=== PATIENT | male | born 1965 | race Caucasian/White ===

== ENCOUNTER → 2016-11-27 | Outpatient (CLI) | payer OTHER ==
[2016-11-27 14:52] LABS: CH 30.2; CHCM 35.6; HCT 48.1 % (39.0-53.0); HDW 2.68; HGB 16.2 gm/dL (13.0-17.5); MCH 28.6 pg (25.0-35.0); MCHC 33.6 g/dL (31.0-37.0); MCV 85.1 fL (80.0-100.0); RBC 5.65 m/uL (4.30-5.90); WBC 8.8 k/uL (3.8-10.6)
== END | disposition home or self-care (01) ==
LOC: LABPAT 14:25
PROVIDERS: ATTEND Anesthesiology
DX: Z01.810 Encounter for preprocedural cardiovascular examination (principal)
CPT/HCPCS: 85027

== ENCOUNTER 2016-12-04 08:26 | Day surgery (SDC) | payer BC, OTHER ==
[2016-11-26 13:59] VITALS: BMI 37.5
[~2016-12-04 08:26] MED LIST: DEXAMETHASONE SOD PHOSPHATE 10 MG/ML 1 ML VIAL IV ONE; HEPARIN SODIUM,PORCINE 5,000 UNIT/ML 1 ML VIAL SQ ONE; LACTATED RINGERS 1,000 ML IV SCH; ONDANSETRON 4 MG/2 ML VIAL IVP ONE; ceFAZolin 2 GM in SODIUM CHLORIDE 0.9% 100 ML IVPB ONE
[2016-12-04] MEDS ORDERED: LIDOCAINE 1% 20 ML VIAL (10MG/ML) FOR IV START INTRADERMA ONE (09:30)
[2016-12-04] MEDS ORDERED: MIDAZOLAM 2 MG/2 ML VIAL IV ONE (09:45)
--- NOTE | 2016-12-04 11:16 | P.GSHP ---
History of Present Illness H&P Date: 12/04/16 Chief Complaint: Incisional hernia This is a 51-year-old male has developed an incisional hernia related to his midline laparotomy. Patient presents today for laparoscopic robotic system repair. - Constitutional Constitutional: Reports as per HPI Past Medical History Past Medical History: Chest Pain / Angina, GERD/Reflux, Hypertension, Osteoarthritis (OA) Additional Past Medical History / Comment(s): NO CURRENT BP MEDS., BACK PAIN, HX OF KIDNEY STONES, HX OF CELLULITIS LEFT LEG X2., HERNIA. History of Any Multi-Drug Resistant Organisms: None Reported Past Surgical History: Hernia Repair Additional Past Surgical History / Comment(s): Lithotripsy Past Anesthesia/Blood Transfusion Reactions: No Reported Reaction Past Psychological History: No Psychological Hx Reported Smoking Status: Heavy tobacco smoker Past Alcohol Use History: None Reported Additional Past Alcohol Use History / Comment(s): SMOKES 1PPD. SMOKING FOR 40 YEARS. Past Drug Use History: None Reported Additional Drug Use History / Comment(s): . - Past Family History Mother Family Medical History: No Reported History Medications and Allergies Home Medications Medication Instructions Recorded Confirmed Type No Known Home Medications [No 03/28/14 12/04/16 History Known Home Medications] Allergies Allergy/AdvReac Type Severity Reaction Status Date / Time ranitidine HCl [From Zantac] Allergy Nausea & Verified 12/04/16 08:46 Vomiting Surgical - Exam Vital Signs Temp Pulse Resp BP Pulse Ox 97.8 F 89 16 198/121 97 12/04/16 09:39 12/04/16 09:39 12/04/16 09:39 12/04/16 09:39 12/04/16 09:39 - General well developed, no distress - Eyes PERRL - ENT normal pinna - Neck no masses - Respiratory normal expansion - Cardiovascular Rhythm: regular - Abdomen Abdomen: soft, non tender Hernia: incisional (Reducible incisional hernia) Assessment and Plan Plan: Reducible incisional hernia. We'll perform laparoscopic robotic-assisted repair.
[2016-12-04] MEDS ORDERED: fentaNYL (PF) 50 MCG/ML 2 ML AMP ONE (11:29)
[2016-12-04] MEDS ORDERED: SUCCINYLCHOLINE CHLORIDE 100 MG/5 ML SYR IV ONE (11:29)
[2016-12-04] MEDS ORDERED: GLYCOPYRROLATE 0.2 MG/ML 2 ML VIAL ONE (11:29)
[2016-12-04] MEDS ORDERED: LIDOCAINE 1% INJ 10MG/ML (20 ML MDV) ONE (11:29)
[2016-12-04] MEDS ORDERED: HYDROmorphone (PF) 1 MG/ML ONE (11:29)
[2016-12-04] MEDS ORDERED: PROPOFOL 10 MG/ML 20 ML VIAL IV ONE (11:29)
[2016-12-04] MEDS ORDERED: ROCURONIUM BROMIDE 10 MG/ML 10 ML VIAL IV ONE (11:29)
[2016-12-04] MEDS ORDERED: PHENYLEPHRINE-0.9% NACL SYG 1 MG/10 ML SYRINGE ONE (11:29)
[2016-12-04] MEDS ORDERED: ePHEDrine SULFATE/0.9% NACL/PF 50 MG/5 ML SYRINGE IV ONE (11:29)
[2016-12-04] MEDS ORDERED: NEOSTIGMINE 1 MG/ML 10 ML VIAL ONE (11:29)
[2016-12-04] MEDS ORDERED: LIDOCAINE 2%-EPI 1:100,000 20 ML VIAL SQ ONE (12:01)
[2016-12-04] MEDS ORDERED: BUPIVACAINE (PF) 0.25% 30 ML VIAL SQ ONE (12:01)
[2016-12-04] MEDS ORDERED: LACTATED RINGERS 1,000 ML IV ONE ×2 (12:22→15:13)
[2016-12-04 14:04] VITALS: TEMP 98.4
[2016-12-04] MEDS: HYDROmorphone 1 MG/ML 1 ML SYRINGE IVP PRN ×2 (14:20→14:34)
--- NOTE | 2016-12-04 14:29 | P.OP ---
Date of Procedure: 12/04/16 Preoperative Diagnosis: Incarcerated incisional hernia Postoperative Diagnosis: Incarcerated incisional hernia Procedure(s) Performed: Laparoscopic robotic-assisted repair of incarcerated incisional hernia Lysis of adhesions Implants: Anesthesia: APOLINAR Surgeon: Arthur Madrigal Estimated Blood Loss (ml): 5 Pathology: none sent Condition: stable Disposition: PACU Indications for Procedure: Operative Findings: Description of Procedure: The patient's placed on the operative table in the supine position. He received general anesthesia. His abdomen was prepped and draped usual sterile fashion. The skin incision sites were anesthetized with 1% local Xylocaine. Using a 5 mm optical trocar in the left upper quadrant repair. The peritoneal cavity is entered. After adequate insufflation the laparoscope was placed back into the peritoneal cavity. Next a 8 mm robotic trochars placed left lower quadrant and a 12 mm trochars placed in the left lateral position. The original 5 mm trocar was exchanged for an 8 mm robotic trocar. The patient was docked to the robot. There were extensive adhesions located along the hernia. Using traction and hook cautery the adhesions were lysed. There is no incision any bowel injury. At this point the fascial defect was closed with #1 strep fixed suture. After the fascia was repaired. The hernia was buttressed with the ventral light ST mesh. This was secured with 2 OV lock suture. The patient was then undocked from the robot. The needles were retrieved. The fascia of the 12 mm trocar site was closed with 0 Ethibond suture. Skin was closed with interrupted 3-0 Monocryl suture. Dermabond was applied. Patient was sent to recovery in stable condition.
[2016-12-04 14:35] VITALS: RESP 18
[2016-12-04] MEDS ORDERED: HYDROcodone/APAP 7.5-325MG 1 EACH TAB PO ONE (15:30)
[2016-12-04 16:43] VITALS: BP 146/91; PULSE 101
== END 2016-12-04 17:10 | disposition home or self-care (01) ==
LOC: OR 08:26
PROVIDERS: ATTEND Surgery
DX: K43.0 Incisional hernia with obstruction, without gangrene (principal); K21.9 Gastro-esophageal reflux disease without esophagitis; I10 Essential (primary) hypertension; F17.200 Nicotine dependence, unspecified, uncomplicated; K66.0 Peritoneal adhesions (postprocedural) (postinfection); Z88.8 Allergy status to other drugs, medicaments and biological substances
CPT/HCPCS: 93005; 86900; 86901; 86850; 49655; C1781; J2250; J1644; J1100; J2710; J0690; J2405; J2001; J3010; J1170; J2370; J0330; J2704

== ENCOUNTER → 2017-08-13 | Outpatient (CLI) | payer OTHER ==
[2017-08-13 11:33] LABS: Basophils # (A) 0.1 k/uL (0-0.2); Basophils % (A) 1 %; Eosinophils # (A) 0.1 k/uL (0-0.7); Eosinophils % (A) 1 %; HCT 49.1 % (39.0-53.0); HGB 16.3 gm/dL (13.0-17.5); Lymphocytes # (A) 2.3 k/uL (1.0-4.8); Lymphocytes % (A) 28 %; MCH 27.7 pg (25.0-35.0); MCHC 33.1 g/dL (31.0-37.0); MCV 83.7 fL (80.0-100.0); Monocytes # (A) 0.6 k/uL (0-1.0); Monocytes % (A) 7 %; Neutrophils # (A) 4.9 k/uL (1.3-7.7); Neutrophils % (A) 60 %; Platelet Count 303 k/uL (150-450); RBC 5.87 m/uL (4.30-5.90); RDW 13.4 % (11.5-15.5); WBC 8.1 k/uL (3.8-10.6)
== END ==
LOC: LABPAT 10:08
PROVIDERS: ATTEND Internal Medicine
DX: Z01.818 Encounter for other preprocedural examination (principal); D64.9 Anemia, unspecified; F17.200 Nicotine dependence, unspecified, uncomplicated; K43.0 Incisional hernia with obstruction, without gangrene; Z01.812 Encounter for preprocedural laboratory examination
CPT/HCPCS: 85025; 93005

== ENCOUNTER 2017-08-20 07:57 | Day surgery (SDC) | payer OTHER ==
[2017-08-19 08:41] VITALS: BMI 37.5
[~2017-08-20 07:57] MED LIST changes: +LIDOCAINE 1% 20 ML VIAL (10MG/ML) FOR IV START INTRADERMA PRN; +MORPHINE SULFATE 4 MG/ML SYRINGE IV PRN; -ONDANSETRON 4 MG/2 ML VIAL IVP ONE; +SCOPOLAMINE 1.5MG/72HR PATCH TRANSDERM ONE; -ceFAZolin 2 GM in SODIUM CHLORIDE 0.9% 100 ML IVPB ONE; +ceFAZolin IN SWFI 2 GM/20 ML SYRINGE IVP ONE
[2017-08-20] MEDS: ONDANSETRON 4 MG/2 ML VIAL IVP ONE ×2 (08:45→12:11)
[2017-08-20] MEDS ORDERED: LACTATED RINGERS 1,000 ML IV ONE ×2 (08:45→11:17)
[2017-08-20] MEDS ORDERED: MIDAZOLAM 2 MG/2 ML VIAL IV ONE (09:20)
--- NOTE | 2017-08-20 09:20 | P.GSHP ---
History of Present Illness H&P Date: 08/20/17 Chief Complaint: Incisional hernia This is a 52-year-old male who has complaints of abdominal wall mass. Patient seen Mari found have recurrent incisional hernia. Patient presents today for laparoscopic robotic assistance repair. Past Medical History Past Medical History: GERD/Reflux, Hypertension, Osteoarthritis (OA) Additional Past Medical History / Comment(s): BACK PAIN, HX OF KIDNEY STONES, HX OF CELLULITIS LEFT LEG X2., HERNIA. History of Any Multi-Drug Resistant Organisms: None Reported Past Surgical History: Hernia Repair Additional Past Surgical History / Comment(s): Lithotripsy, UMBILICAL HERNIA Past Anesthesia/Blood Transfusion Reactions: No Reported Reaction Smoking Status: Current every day smoker - Past Family History Mother Family Medical History: No Reported History Medications and Allergies Home Medications Medication Instructions Recorded Confirmed Type Lisinopril [Zestril] 20 mg PO DAILY 08/19/17 08/19/17 History Allergies Allergy/AdvReac Type Severity Reaction Status Date / Time ranitidine HCl [From Zantac] Allergy Nausea & Verified 08/19/17 08:16 Vomiting Surgical - Exam Vital Signs Temp Pulse Resp BP Pulse Ox 98.8 F 99 18 154/100 97 08/20/17 08:18 08/20/17 08:18 08/20/17 08:18 08/20/17 08:18 08/20/17 08:18 - General well developed, no distress - Eyes PERRL - ENT normal pinna - Neck no masses - Respiratory normal expansion - Cardiovascular Rhythm: regular - Abdomen Abdomen: soft, non tender Hernia: incisional (Upper midline incisional hernia located above the umbilicus) Assessment and Plan Assessment: Incisional hernia. We'll perform laparoscopic robotic system repair.
[2017-08-20] MEDS ORDERED: PROPOFOL 10 MG/ML 20 ML VIAL IV ONE (09:40)
[2017-08-20] MEDS ORDERED: ROPIVACAINE 5 MG/ML 30 ML VIAL ONE (09:40)
[2017-08-20] MEDS ORDERED: NEOSTIGMINE 1 MG/ML 10 ML VIAL ONE (09:40)
[2017-08-20] MEDS ORDERED: PHENYLEPHRINE-0.9% NACL SYG 1 MG/10 ML SYRINGE ONE (09:40)
[2017-08-20] MEDS ORDERED: fentaNYL (PF) 50 MCG/ML 2 ML AMP ONE (09:40)
[2017-08-20] MEDS ORDERED: SUCCINYLCHOLINE CHLORIDE 100 MG/5 ML SYR IV ONE (09:40)
[2017-08-20] MEDS ORDERED: ROCURONIUM BROMIDE 10 MG/ML 10 ML VIAL IV ONE (09:40)
[2017-08-20] MEDS ORDERED: GLYCOPYRROLATE 0.2 MG/ML 2 ML VIAL ONE (09:40)
[2017-08-20] MEDS ORDERED: BUPIVACAINE (PF) 0.5% 30 ML VIAL SQ ONE (10:09)
[2017-08-20 11:51] VITALS: TEMP 97.9
[2017-08-20] MEDS ORDERED: HYDROmorphone 1 MG/ML 1 ML SYRINGE IVP ONE ×2 (12:07)
[2017-08-20] MEDS ORDERED: diphenhydrAMINE 50 MG/ML 1 ML VIAL IVP ONE (12:08)
[2017-08-20] MEDS ORDERED: KETOROLAC 30 MG/ML 1 ML VIAL IVP ONE (12:11)
[2017-08-20] MEDS ORDERED: HYDROmorphone 0.5 MG/0.5 ML SYRINGE IVP ONE (12:20)
[2017-08-20] MEDS: MEPERIDINE 50 MG/ML SYRINGE IVP ONE ×2 (12:37→12:43)
[2017-08-20] MEDS ORDERED: HYDROcodone/APAP 7.5-325MG 1 EACH TAB PO ONE ×2 (13:00→14:05)
[2017-08-20 14:44] VITALS: BP 138/94; PULSE 103; RESP 20
--- NOTE | 2017-08-20 16:12 | P.OP ---
Date of Procedure: 08/20/17 Preoperative Diagnosis: Recurrent incisional hernia incarcerated Postoperative Diagnosis: Incarcerated recurrent incisional hernia Adhesions Procedure(s) Performed: Laparoscopic lysis of adhesions Laparoscopic robotic-assisted repair of recurrent incarcerated incisional hernia Anesthesia: APOLINAR Surgeon: Arthur Madrigal Estimated Blood Loss (ml): 5 Pathology: none sent Condition: stable Disposition: PACU Description of Procedure: The patient was placed on the operating table in the supine position. He received general anesthesia. His abdomen was prepped and draped usual fashion. Using a 5 mm optical trocar under direct visualization the peritoneal cavity was entered in the left upper quadrant. The abdomen was then insufflated. The laparoscope was placed back into the perineal cavity. Next a 8 mm robotic trocar was placed in the left lower quadrant and a 12 mm robotic trocar was placed in the left lateral position. The original 5 mm trocar was exchanged for a 8 mm robotic trocar. The patient's placed in the left side up position. And the patient was docked to the robot. The incisional hernia was visualized. There was incarcerated small bowel within the hernia. There is also extensive adhesions. Using Metzenbaum scissors and hook cautery the adhesions were lysed and the small bowel was reduced from the incisional hernia. Using hook cautery the peritoneum over the incisional hernia was excised. The fascial opening was repaired using 0V LOC suture. Next a piece of 11 cm round ventral light ST mesh was placed into the. Cavity and secured with 2 OV lock suture. The patient was undocked the robot. The needles were retrieved. The fascia of the 12 mm trocar site was closed with 0 Ethibond suture. Skin was closed interrupted 3-0 Monocryl suture. Dermabond dressings was applied. Patient tolerated procedure well and was sent to recovery room stable condition.
--- NOTE | 2017-08-21 17:58 | P.ONQ ---
Anesthesiology Proc Note - PNB - Peripheral Nerve Block Performed Bilateral Rectus Abdominis Single Time Out Performed: Yes Procedure Start Time: :16 Procedure Stop Time: : Indication: Acute Post-Operative Pain, Requested by physician Sedation Type: Sedate with meaningful contact maintained Preparation: Sterile Dressing Needle Size: 100mm (4") Needle Gauge: 21 Technique: Ultrasound Injectate: 0.5% Ropivacaine (see comment for volume) (ropi .5% 15cc each side) Blood Aspirated: No Pain Paresthesia on Injection Noted: No Resistance on Injection: Normal Events: Uneventful and Well Tolerated
== END 2017-08-20 15:03 | disposition home or self-care (01) ==
LOC: OR 07:57
PROVIDERS: ATTEND Surgery
DX: K43.0 Incisional hernia with obstruction, without gangrene (principal); K21.9 Gastro-esophageal reflux disease without esophagitis; I10 Essential (primary) hypertension; K66.0 Peritoneal adhesions (postprocedural) (postinfection); M19.90 Unspecified osteoarthritis, unspecified site; Z87.442 Personal history of urinary calculi; F17.200 Nicotine dependence, unspecified, uncomplicated; Z88.8 Allergy status to other drugs, medicaments and biological substances; Z79.899 Other long term (current) drug therapy
CPT/HCPCS: 86900; 86901; 86850; 49657; 64488; C1781; J2250; J1200; J1644; J1100; J2710; J2175; J2405; J3010; J1885; J1170 ×2; J2795; J2370; J0330; J2704; J0690

== ENCOUNTER → 2018-02-06 | Outpatient (CLI) | payer OTHER ==
--- NOTE | 2018-02-06 12:25 | CT ---
EXAMINATION TYPE: CT abdomen pelvis w con DATE OF EXAM: 02/06/2018 COMPARISON: None HISTORY: Generalized abdominal pain. CT DLP: 1911 mGycm Automated exposure control for dose reduction was used. CONTRAST: CT scan of the abdomen pelvis is performed with IV Contrast, patient injected with 100 mL of Isovue M 300. FINDINGS- LUNG BASES- No significant abnormality is appreciated. LIVER/GB-multiple gallstones are seen. Subcentimeter hypodensity in the left lobe of the liver on flavio ge 19 is too small to characterize. PANCREAS- No gross abnormality is seen. SPLEEN- No gross abnormality is seen. ADRENALS- No gross abnormality is seen. KIDNEYS/BLADDER- no hydronephrosis nephrolithiasis. Subcentimeter hypodensity in the lower pole the r ight kidney too small to characterize. BOWEL-bowel gas pattern nonspecific. Diverticulosis of the colon noted. Appendix normal. LYMPH NODES- No greater than 1cm abdominal or pelvic lymph nodes areappreciated. OSSEOUS STRUCTURES-multilevel severe degenerative disc disease with hypertrophic change. Arthropathy of the hips correlate for femoral acetabular impingement. Hypertrophic changes involving vertebral co lumn suggest Canal stenosis foraminal encroachment multiple levels. OTHER- bladder wall is thickened although the bladder is decompressed but should be correlated clini fabricio. Nonspecific attenuation within the anterior dominant wall near the umbilicus may be related to previous scar or soft tissue edema. Prostate is mildly enlarged with calcifications. Tiny anterior a bdominal wall hernia on image 36 containing peritoneal fat. IMPRESSION- 1. No cholelithiasis. 2. Hypodensities within the liver and right kidney too small to characterize but likely related to cy sts 3. Bladder is decompressed but has a thickened wall which may be secondary to decompression. Correlat e clinically for cystitis.
== END ==
LOC: RADCTMAIN 10:24
PROVIDERS: ATTEND Internal Medicine
DX: K76.89 Other specified diseases of liver (principal)
CPT/HCPCS: 74177; Q9967

== ENCOUNTER → 2018-04-22 | Outpatient (CLI) | payer OTHER ==
--- NOTE | 2018-04-22 15:02 | CT ---
EXAMINATION TYPE: CT soft tissue neck wo con, High resolution CT chest DATE OF EXAM: 04/22/2018 COMPARISON: None HISTORY: 52-year-old male Shortness of breath, neck mass TECHNIQUE: Contiguous axial scanning of the soft tissues of the neck followed by high resolution CT o f the chest without IV contrast. Coronal and sagittal reconstructions performed. For the chest, imagi ng performed in both supine and prone position with 1 mm slice thickness and [address] DLP: 781 (accession [id number]), 213 (accession [id number]) mGycm Automated exposure control for dose reduction was used. FINDINGS: NECK: Leftward nasal septal deviation. Visualized maxillary sinuses and mastoid air cells appear clear. Lack of IV contrast limits assessment of the mucosal space. For this limitation, the nasopharynx appears grossly clear. There is nonspecific soft tissue density effacing the right vallecular space, suspected lingual tonsillar hypertrophy that can be correlated w ith direct visualization, refer to axial images 27 through 29. Nonspecific calcification near the reg ion of the left palatine tonsils suggestive of a tonsillolith measuring 4 mm. On the sagittal series, the epiglottis and prevertebral soft tissues appear normal. The glottic and subglottic structures as well as the tracheal column and visualized upper lungs show no personality by noncontrast CT. There is aneurysm of the ascending aorta 4.2 cm. Noncontrast appearance of the thyroid, submandibular, and parotid glands show no gross abnormal mobil ity. Scattered nonenlarged lymph nodes on both sides of the neck measuring up to 7 mm. No cervical lymphad enopathy identified. No suspicious neck mass is identified. HRCT CHEST: Heart normal size without pericardial effusion. Some scattered mild coronary vessel calcifications ar e present. Redemonstrated aneurysm of the ascending aorta at 4.2 cm. Aneurysm extends into the proximal arch. Bu lla and configuration to the aortic arch. No evident thoracic lymphadenopathy by HRCT technique. Mild diffuse bronchial wall thickening is noted. Some emphysematous change in the apices. Some mild g roundglass in the lower lungs is noted to follow a dependent distribution when comparing between supi ne and prone images compatible with atelectasis. HRCT technique limited for assessment of small pulmonary nodules No consolidation or pleural effusion. No thickening of the bronchovascular bundles, honeycombing, centrilobular nodules, tree-in-bud opacit ies. Visualized upper abdomen shows no gross abnormality. Bones: No osseous destructive process. IMPRESSION: NECK: 1. LIMITED ASSESSMENT OF THE SUBMUCOSAL SPACE DUE TO LACK OF IV CONTRAST. 2. SOME SOFT TISSUE NODULARITY EFFACING THE RIGHT VALLECULAR SPACE, SUSPECTED LINGUAL TONSIL HYPERTRO PHY. CORRELATE WITH DIRECT VISUALIZATION. 3. APPARENT 4 MM LEFT-SIDED TONSILLOLITH. 4. NO CERVICAL LYMPHADENOPATHY OR SUSPICIOUS NECK MASS IS IDENTIFIED. IF PERSISTENT CLINICAL CONCERN, THE EXAM CAN BE REVIEWED WITH DIRECTED ATTENTION. HRCT CHEST: 1. MILD EMPHYSEMATOUS CHANGE AT THE APICES. 2. BRONCHIAL WALL THICKENING SUGGESTS BRONCHITIS OR ASTHMA. 3. ASCENDING AORTIC ANEURYSM AT 4.2 CM. APPROPRIATE FOLLOW-UP RECOMMENDED 4. NO SPECIFIC HRCT FINDINGS OF PULMONARY FIBROSIS OR INTERSTITIAL PNEUMONITIS.
== END | disposition home or self-care (01) ==
LOC: RADCTMAIN 13:17
PROVIDERS: ATTEND Internal Medicine
DX: J43.9 Emphysema, unspecified (principal); J35.1 Hypertrophy of tonsils; J35.8 Other chronic diseases of tonsils and adenoids; I71.2 Thoracic aortic aneurysm, without rupture; M79.89 Other specified soft tissue disorders
CPT/HCPCS: 70490; 71250

== ENCOUNTER → 2018-05-28 | Outpatient (CLI) | payer OTHER ==
--- NOTE | 2018-05-28 17:17 | CT ---
EXAMINATION TYPE: CT abdomen pelvis wo con DATE OF EXAM: 05/28/2018 COMPARISON: Prior CT 02/06/2018 HISTORY: Abdominal hernia CT DLP: 1141 mGycm Automated exposure control for dose reduction was used. TECHNIQUE: Helical acquisition of images from the lung bases through the pelvis. FINDINGS: Small anterior abdominal wall hernia present in the midline contains fat in the subxiphoid location approximately 10 cm from the xiphoid. More inferiorly there is a small anterior abdominal wa ll hernia present with suggestion of bowel loop as well as some postsurgical changes at this level. N o evident bowel obstruction. LUNG BASES: No significant abnormality is appreciated. AORTA: No significant abnormality is appreciataed. LIVER/GB: There are gallstones present. Liver shows no mass. PANCREAS: No significant abnormality is seen. SPLEEN: No significant abnormality is seen. ADRENALS: No significant abnormality is seen. KIDNEYS: No significant abnormality is seen. REPRODUCTIVE ORGANS: Prostate is enlarged and there are associated calcifications. URINARY BLADDER: Urinary bladder shows wall thickening possibly due to chronic outlet obstruction. BOWEL: Colonic wall thickening seen, difficult to exclude mucosal lesion. The appendix is normal. FREE AIR: No Free Air is visible. ASCITES: None visible. PELVIC ADENOPATHY: None visualized. RETROPERITONEAL ADENOPATHY: No Retroperitoneal Adenopathy visible. OSSEOUS STRUCTURES: Degenerative disc disease noted the lower lumbar spine, there is a spinal curvat ure. IMPRESSION: ANTERIOR ABDOMINAL WALL HERNIAS WITH POSTOP CHANGES, BOWEL IS HERNIATED THROUGH THE ANTERIOR ABDOMINA L WALL HERNIA IN THE SUPRAUMBILICAL LOCATION, NO EVIDENT OBSTRUCTION. NONCONTRAST EXAM, CHOLELITHIASI S AND ADDITIONAL FINDINGS ABOVE.
== END | disposition home or self-care (01) ==
LOC: RADCTMAIN 14:30
PROVIDERS: ATTEND Internal Medicine
DX: K46.9 Unspecified abdominal hernia without obstruction or gangrene (principal); K80.20 Calculus of gallbladder without cholecystitis without obstruction; N32.89 Other specified disorders of bladder; N40.0 Benign prostatic hyperplasia without lower urinary tract symptoms; Z88.8 Allergy status to other drugs, medicaments and biological substances; Z88.5 Allergy status to narcotic agent
CPT/HCPCS: 74176

== ENCOUNTER → 2018-06-02 | Outpatient (CLI) | payer OTHER ==
[2018-06-02 16:55] LABS: Basophils # (A) 0.1 k/uL (0-0.2); Basophils % (A) 1 %; Eosinophils # (A) 0.1 k/uL (0-0.7); Eosinophils % (A) 2 %; HCT 44.1 % (39.0-53.0); HGB 14.8 gm/dL (13.0-17.5); Lymphocytes # (A) 2.4 k/uL (1.0-4.8); Lymphocytes % (A) 30 %; MCH 28.6 pg (25.0-35.0); MCHC 33.7 g/dL (31.0-37.0); MCV 84.9 fL (80.0-100.0); Mean Platelet Volume 6.8; Monocytes # (A) 0.5 k/uL (0-1.0); Monocytes % (A) 7 %; Neutrophils # (A) 4.6 k/uL (1.3-7.7); Neutrophils % (A) 58 %; Platelet Count 314 k/uL (150-450); RBC 5.19 m/uL (4.30-5.90); RDW 13.5 % (11.5-15.5); WBC 7.9 k/uL (3.8-10.6)
== END | disposition home or self-care (01) ==
LOC: LABPAT 16:02
PROVIDERS: ATTEND Surgery
DX: Z01.812 Encounter for preprocedural laboratory examination (principal); K43.0 Incisional hernia with obstruction, without gangrene
CPT/HCPCS: 36415; 85025

== ENCOUNTER 2018-06-08 07:29 | Observation (INO) | payer OTHER ==
[~2018-06-08 07:29] MED LIST changes: -DEXAMETHASONE SOD PHOSPHATE 10 MG/ML 1 ML VIAL IV ONE; -LACTATED RINGERS 1,000 ML IV SCH; -MORPHINE SULFATE 4 MG/ML SYRINGE IV PRN; +ONDANSETRON 4 MG/2 ML VIAL IVP ONE; -SCOPOLAMINE 1.5MG/72HR PATCH TRANSDERM ONE; +ceFAZolin 3 GM in SODIUM CHLORIDE 0.9% 100 ML IVPB ONE; -ceFAZolin IN SWFI 2 GM/20 ML SYRINGE IVP ONE
[2018-06-08] MEDS ORDERED: DEXAMETHASONE SOD PHOS (MDV) 100 MG/10 ML VIAL IV ONE (08:03)
[2018-06-08] MEDS: fentaNYL (PF) 50 MCG/ML 2 ML AMP IV PRN ×5 (08:05→11:05)
[2018-06-08] MEDS ORDERED: MIDAZOLAM 2 MG/2 ML VIAL IV ONE (08:05)
[2018-06-08] MEDS: LACTATED RINGERS 1,000 ML IV SCH (08:07)
--- NOTE | 2018-06-08 08:16 | P.GSHP ---
History of Present Illness H&P Date: 06/08/18 Chief Complaint: Recurrent incisional hernia This a 53-year-old male who has developed a recurrent incisional hernia. Patient presents today for open repair. He has developed a tender mass just above his umbilicus Past Medical History Past Medical History: Chest Pain / Angina, COPD, CVA/TIA, GERD/Reflux, Hyperlipidemia, Hypertension, Osteoarthritis (OA) Additional Past Medical History / Comment(s): HX OF KIDNEY STONES, TIA,. STATES HE HAS AN ANEURYSM ON THE HEART AND IT IS BEING MONITORED BY A SUPPORT CLERK. History of Any Multi-Drug Resistant Organisms: None Reported Past Surgical History: Hernia Repair Additional Past Surgical History / Comment(s): Lithotripsy, HERNIA SURGERY X3 Past Anesthesia/Blood Transfusion Reactions: No Reported Reaction Past Psychological History: No Psychological Hx Reported Smoking Status: Former smoker Past Alcohol Use History: None Reported Additional Past Alcohol Use History / Comment(s): STARTED SMOKING SMOKING AT AGE 12 QUIT AT JAN 2018 SMOKED 1PPD. Past Drug Use History: None Reported Additional Drug Use History / Comment(s): . - Past Family History Mother Family Medical History: Coronary Artery Disease (CAD), Diabetes Mellitus Father Family Medical History: CVA/TIA, Hypertension Medications and Allergies Home Medications Medication Instructions Recorded Confirmed Type Lisinopril [Zestril] 40 mg PO DAILY 08/19/17 06/04/18 History Atorvastatin [Lipitor] 10 mg PO DAILY 04/15/18 06/04/18 History Butalbital/Acetaminophen 1 cap PO DAILY PRN 04/15/18 06/04/18 History [Butalbital/Acetaminophen 50-300mg] Dicyclomine [Bentyl] 20 mg PO TID 04/15/18 06/04/18 History Metoprolol Succinate (ER) [Toprol 50 mg PO DAILY 04/15/18 06/04/18 History Xl] Pantoprazole [Protonix] 40 mg PO TID BETWEEN MEALS 04/15/18 06/04/18 History amLODIPine [Norvasc] 10 mg PO DAILY 04/15/18 06/04/18 History Albuterol Inhaler [Ventolin Hfa 1 - 2 puff INHALATION RT-Q6H PRN 06/04/18 06/04/18 History Inhaler] Allergies Allergy/AdvReac Type Severity Reaction Status Date / Time ranitidine HCl [From Zantac] Allergy Nausea & Verified 06/04/18 12:41 Vomiting acetaminophen [From Krum] AdvReac Nausea, Verified 06/04/18 12:41 light headed hydrocodone [From Krum] AdvReac Nausea, Verified 06/04/18 12:41 light headed Surgical - Exam Vital Signs Temp Pulse Resp BP Pulse Ox 99.8 F H 85 16 152/85 95 06/08/18 07:51 06/08/18 07:51 06/08/18 07:51 06/08/18 07:51 06/08/18 07:51 - General well developed, well nourished, no distress - Eyes PERRL - ENT normal pinna - Neck no masses - Respiratory normal expansion - Cardiovascular Rhythm: regular - Abdomen Abdomen: soft Hernia: incisional (Recurrent incisional hernia measuring approximately 4 cm in diameter) Assessment and Plan Assessment: Recurrent incisional hernia. We'll perform open repair.
[2018-06-08] MEDS ORDERED: ePHEDrine SULFATE/0.9% NACL/PF 50 MG/5 ML SYRINGE IV ONE (08:34)
[2018-06-08] MEDS ORDERED: PROPOFOL 10 MG/ML 20 ML VIAL IV ONE (08:34)
[2018-06-08] MEDS ORDERED: fentaNYL (PF) 50 MCG/ML 2 ML AMP ONE (08:34)
[2018-06-08] MEDS ORDERED: ROCURONIUM BROMIDE 10 MG/ML 10 ML VIAL IV ONE (08:34)
[2018-06-08] MEDS ORDERED: NEOSTIGMINE 1 MG/ML 10 ML VIAL ONE (08:34)
[2018-06-08] MEDS ORDERED: ROPIVACAINE 5 MG/ML 30 ML VIAL ONE (08:34)
[2018-06-08] MEDS ORDERED: KETOROLAC 30 MG/ML 1 ML VIAL ONE (08:34)
[2018-06-08] MEDS ORDERED: MIDAZOLAM 2 MG/2 ML VIAL ONE (08:34)
[2018-06-08] MEDS ORDERED: SUCCINYLCHOLINE CHLORIDE 100 MG/5 ML SYR IV ONE (08:34)
[2018-06-08] MEDS ORDERED: GLYCOPYRROLATE 0.2 MG/ML 2 ML VIAL ONE (08:34)
[2018-06-08] MEDS ORDERED: LIDOCAINE 1% INJ 10MG/ML (20 ML MDV) ONE (08:34)
[2018-06-08] MEDS ORDERED: PHENYLEPHRINE-0.9% NACL SYG 1 MG/10 ML SYRINGE ONE (08:34)
--- NOTE | 2018-06-08 09:06 | P.ONQ ---
Anesthesiology Proc Note - PNB - Peripheral Nerve Block Performed Bilateral Rectus Abdominis Single Time Out Performed: Yes (802) Procedure Start Time: 08:04 Procedure Stop Time: 08:10 Indication: Acute Post-Operative Pain, Analgesia, Requested by physician Sedation Type: Sedate with meaningful contact maintained Preparation: Sterile Prep Position: Supine Catheter: None Needle Types: On-Q Needle Size: 100mm (4") Needle Gauge: 20 Technique: Ultrasound Injectate: 0.5% Ropivacaine (see comment for volume) Blood Aspirated: No Pain Paresthesia on Injection Noted: No Resistance on Injection: Normal Events: Uneventful and Well Tolerated (15 ml solution injected on each side)
[2018-06-08] MEDS ORDERED: BUPIVACAINE-EPI 0.5%-1:200,000 10 ML VIAL SQ ONE ×2 (09:16→09:57)
[2018-06-08] MEDS ORDERED: LACTATED RINGERS 1,000 ML IV ONE ×3 (09:27→10:16)
--- NOTE | 2018-06-08 10:15 | P.OP ---
Date of Procedure: 06/08/18 Preoperative Diagnosis: Recurrent incisional hernia Postoperative Diagnosis: Recurrent incarcerated incisional hernia Procedure(s) Performed: (Recurrent incarcerated incisional hernia Anesthesia: APOLINAR Surgeon: Arthur Madrigal Estimated Blood Loss (ml): 50 Pathology: none sent Condition: stable Disposition: PACU Description of Procedure: The patient's placed on the operative table in the supine position. He received general anesthesia. His abdomen was prepped and draped in the usual sterile fashion. Patient had a incisional hernia located above the umbilicus from his midline scar. Using a 15 blade the skin was incised and using left cautery the subcutaneous tissue divided. The hernia sac was then encountered. The incision was lengthened cephalad and then the fascia external oblique was exposed. The hernia appeared to contain incarcerated omentum. The hernia sac was opened and the omentum was placed back the pleural cavity. X fascia was closed with 0 Ethibond pop-off sutures. These replaced with [id number] fashion. Once the fascia was closed the hernia was buttressed with a piece of Prolene mesh which was secured with a secure strap stapler. A JUAN FRANCISCO drains placed over top the repair and brought out through separate stab incision and secured with 2-0 nylon. Peter's fascia is closed with 0 Vicryl. Skin was closed alee. Patient top she will was sent to recovery in stable condition.
[2018-06-08] MEDS ORDERED: NALOXONE 0.4 MG/ML 1 ML VIAL IV PRN (10:16)
[2018-06-08] MEDS ORDERED: METOCLOPRAMIDE 5 MG/ML 2 ML VIAL IVP PRN (10:16)
[2018-06-08] MEDS ORDERED: HYDROcodone/APAP 5-325MG 1 EACH TAB PO PRN (10:16)
[2018-06-08] MEDS ORDERED: ONDANSETRON 4 MG/2 ML VIAL IVP PRN (10:16)
[2018-06-08] MEDS: KETOROLAC 30 MG/ML 1 ML VIAL IVP SCH ×2 (11:54→17:53)
[2018-06-08 12:08] VITALS: BMI 41.4
[2018-06-08] MEDS: HYDROmorphone 0.5 MG/0.5 ML SYRINGE IVP PRN ×2 (13:01→21:03)
[2018-06-08] MEDS ORDERED: BUTALB/APAP/CAFF 50-325-40MG TAB PO PRN (15:00)
--- NOTE | 2018-06-08 15:14 | P.CONS ---
History of Present Illness - Reason for Consult Consult date: 06/08/18 Medical management of hypertension and other medical problems - Chief Complaint Incisional hernia repair - History of Present Illness Je crystal is a 52-year-old male with a known history of hypertension, hyperlipidemia, history of CVA/TIA, COPD quit smoking 6 months ago, history of renal stones status post lithotripsy and prior history of incisional hernia repair was admitted to the hospital for elective incisional hernia repair. Patient also morbid obesity BMI 42.0. Patient tolerated the procedure very well. Currently denied any complaints of abdominal pain. No complaints of chest pain or shortness of breath. No nausea vomiting or abdominal pain. No headache or dizziness or lightheadedness. No fever no chills. Blood pressure is on the lower side of his surgery. Pain is really controlled. Review of Systems Constitutional: Patient denies any fever or chills . No generalized weakness or weight loss. Abdomen: Patient denied nausea vomiting and diarrhea and abdominal pain. Cardiovascular: Patient denies any chest pain or short of breath no palpitations. Respiratory: patient denied any cough is from production. No shortness of breath Neurologic: Patient denied any numbness or tingling headache. Musculoskeletal: Patient denies any complaints of joint swelling or deformity. Skin: Negative Psychiatric: Negative Endocrine: No heat or cold intolerance. No recent weight gain. Genitourinary: No dysuria or hematuria. All other 14 point ROS negative except the above Past Medical History Past Medical History: Chest Pain / Angina, COPD, CVA/TIA, GERD/Reflux, Hyperlipidemia, Hypertension, Osteoarthritis (OA) Additional Past Medical History / Comment(s): HX OF KIDNEY STONES, TIA,. STATES HE HAS AN ANEURYSM ON THE HEART AND IT IS BEING MONITORED BY A DIRECTIONAL DRILLER. History of Any Multi-Drug Resistant Organisms: None Reported Past Surgical History: Hernia Repair Additional Past Surgical History / Comment(s): Lithotripsy, HERNIA SURGERY X3 Past Anesthesia/Blood Transfusion Reactions: No Reported Reaction Past Psychological History: No Psychological Hx Reported Smoking Status: Former smoker Past Alcohol Use History: None Reported Additional Past Alcohol Use History / Comment(s): STARTED SMOKING SMOKING AT AGE 12 QUIT AT JAN 2018 SMOKED 1PPD. Past Drug Use History: None Reported Additional Drug Use History / Comment(s): . - Past Family History Mother Family Medical History: Coronary Artery Disease (CAD), Diabetes Mellitus Father Family Medical History: CVA/TIA, Hypertension Medications and Allergies Home Medications Medication Instructions Recorded Confirmed Type Lisinopril [Zestril] 40 mg PO DAILY 08/19/17 06/08/18 History Atorvastatin [Lipitor] 10 mg PO DAILY 04/15/18 06/04/18 History Butalbital/Acetaminophen 1 cap PO DAILY PRN 04/15/18 06/04/18 History [Butalbital/Acetaminophen 50-300mg] Dicyclomine [Bentyl] 20 mg PO TID 04/15/18 06/04/18 History Metoprolol Succinate (ER) [Toprol 50 mg PO DAILY 04/15/18 06/08/18 History Xl] Pantoprazole [Protonix] 40 mg PO BID 04/15/18 06/08/18 History amLODIPine [Norvasc] 10 mg PO DAILY 04/15/18 06/08/18 History Albuterol Inhaler [Ventolin Hfa 1 - 2 puff INHALATION RT-Q6H PRN 06/04/18 06/04/18 History Inhaler] Hydrochlorothiazide [Hydrodiuril] 25 mg PO DAILY 06/08/18 06/08/18 History Metoprolol Succinate (ER) [Toprol 25 mg PO HS 06/08/18 06/08/18 History Xl] Allergies Allergy/AdvReac Type Severity Reaction Status Date / Time ranitidine HCl [From Zantac] Allergy Nausea & Verified 06/04/18 12:41 Vomiting acetaminophen [From [place]] AdvReac Nausea, Verified 06/04/18 12:41 light headed hydrocodone [From [place]] AdvReac Nausea, Verified 06/04/18 12:41 light headed Physical Exam Vitals: Vital Signs Temp Pulse Pulse Resp BP BP Pulse Ox 06/08/18 10:55 80 16 112/69 93 L 06/08/18 10:40 75 16 105/69 91 L 06/08/18 10:25 74 16 107/51 93 L 06/08/18 10:11 97.5 F L 85 16 95/62 06/08/18 08:27 83 18 150/80 98 06/08/18 07:51 99.8 F H 85 16 152/85 95 Intake and Output 06/07/18 06/08/18 06/08/18 22:59 06:59 14:59 Intake Total 1500 Output Total 50 Balance 1450 Intake: IV 1500 Output: Estimated Blood Loss 50 PHYSICAL EXAMINATION: Patient is lying in the bed comfortably, no acute distress, awake alert and oriented.. HEENT: Normocephalic. Neck is supple. Pupils reactive. Nostrils clear. Oral cavity is moist. Ears reveal no drainage. Neck reveals no JVD, carotid bruits, or thyromegaly. CHEST EXAMINATION: Trachea is central. Symmetrical expansion. Lung kearney clear to auscultation and percussion. CARDIAC: Normal S1, S2 with no gallops. No murmurs ABDOMEN: Soft. Obese, abdominal surgical site intact and bandaged. Bowel sounds normal. No organomegaly. No abdominal bruits. Extremities: 1+edema. No clubbing or cyanosis Neurologically awake, alert, oriented x3 with well-coordinated movements. No focal deficits noted Skin: No rash or skin lesions. Psychiatric: Coperative. Nonsuicidal Musculoskeletal: No joint swelling or deformity. Normal range of motion. Assessment and Plan Assessment: Status post incisional hernia repair. Postoperative day 0 Hypertension. Currently patient is hypotensive. Hyperlipidemia Morbid obesity BMI 42.0 COPD not in exacerbation Previous history of smoking about quit smoking 6 months back History of aneurysm on follow-up with cardiology History of renal stones status post lithotripsy GERD History of CVA/TIA without residual weakness DVT prophylaxis with heparin subcu Plan: Patient will be continued on pain medications and bowel regimen. Continue with DVT prophylaxis. Encourage incentive spirometry. Hold home blood pressure medications due to hypotension. Currently restarted once blood pressure improves.. Patient is on Norvasc, hydrochlorothiazide and lisinopril at home. Breathing treatments as needed. We will follow up closely with you. Further recommendations based on the clinical course. Time with Patient: Greater than 30
[2018-06-08] MEDS: PANTOPRAZOLE 40 MG TABLET PO SCH (17:54)
[2018-06-09] MEDS: KETOROLAC 30 MG/ML 1 ML VIAL IVP SCH ×4 (01:13→16:21)
[2018-06-09] MEDS: HYDROmorphone 0.5 MG/0.5 ML SYRINGE IVP PRN (03:41)
[2018-06-09] MEDS: LACTATED RINGERS 1,000 ML IV SCH (06:11)
[2018-06-09 08:03] VITALS: RESP 16
[2018-06-09 08:17] LABS: Basophils % (A) 0 %; Eosinophils % (A) 0 %; HCT 38.8 % (39.0-53.0); HGB 12.7 gm/dL (13.0-17.5); Lymphocytes # (A) 1.6 k/uL (1.0-4.8); Lymphocytes % (A) 12 %; MCH 28.1 pg (25.0-35.0); MCHC 32.8 g/dL (31.0-37.0); MCV 85.8 fL (80.0-100.0); Mean Platelet Volume 8.1; Monocytes # (A) 0.8 k/uL (0-1.0); Monocytes % (A) 6 %; Neutrophils # (A) 10.3 k/uL (1.3-7.7); Neutrophils % (A) 80 %; Platelet Count 271 k/uL (150-450); RBC 4.52 m/uL (4.30-5.90); RDW 13.8 % (11.5-15.5)
[2018-06-09 08:32] LABS: Anion Gap 10 mmol/L; Blood Urea Nitrogen 18 mg/dL (9-20); Calcium 9.4 mg/dL (8.4-10.2); Carbon Dioxide 27 mmol/L (22-30); Chloride 99 mmol/L (98-107); Glucose 107 mg/dL (74-99); Potassium 4.3 mmol/L (3.5-5.1); Sodium 136 mmol/L (137-145)
[2018-06-09] MEDS: PANTOPRAZOLE 40 MG TABLET PO SCH (09:00)
[2018-06-09] MEDS ORDERED: ENOXAPARIN 40 MG/0.4 ML SYRINGE SQ SCH (09:00)
[2018-06-09] MEDS ORDERED: METOPROLOL SUCCINATE (ER) 50 MG TAB.ER.24H PO SCH (09:00)
[2018-06-09] MEDS ORDERED: ATORVASTATIN 10 MG TAB PO SCH (09:00)
[2018-06-09] MEDS ORDERED: traMADol 50 MG TAB PO PRN (09:00)
[2018-06-09] MEDS: PIPERACILLIN-TAZOBACTAM 3.375 GM in SODIUM CHLORIDE 0.9% 100 ML IVPB SCH ×2 (10:41→16:22)
--- NOTE | 2018-06-09 10:43 | P.PN ---
Subjective Progress Note Date: 06/09/18 CHIEF COMPLAINT: recurrent incisional hernia HISTORY OF PRESENT ILLNESS: Patient is status post repair of recurrent incarcerated incisional hernia. POD #1. Patient was examined this morning at the bedside. He states his pain is tolerable at this time. He denies nausea. He is tolerating clear liquid diet. WBC 13.0. He is afebrile. PHYSICAL EXAM: VITAL SIGNS: Currently stable. GENERAL: Well-developed in no acute distress. HEENT: No sclera icterus. Extraocular movements grossly intact. Moist buccal mucosa. Head is atraumatic, normocephalic. Hears conversational speech. No nasal drainage. NECK: Supple without lymphadenopathy. CHEST: Non-labored respirations and equal bilateral excursions. CARDIOVASCULAR: Tachycardic. Regular rate with regular rhythm. Palpable 2+ radial pulses. ABDOMEN: Soft. Nondistended. PREVENA in place. Left sided JUAN FRANCISCO with small amount of sanguinous drainage. MUSCULOSKELETAL: No clubbing, cyanosis or edema. NEUROLOGIC: No focal or lateralizing signs. Cranial nerves II through XII grossly intact. PSYCH: Appropriate affect. Alert and oriented to person, place and time. SKIN: Well perfused. Good skin turgor. ASSESSMENT: 1. Status post repair of recurrent incarcerated incisional hernia 2. Leukocytosis PLAN: 1. Begin Zosyn. Monitor WBC. Repeat in AM 2. Advance diet to full liquid 3. Resume daily toprol due to tachycardia 4. Increase activity as tolerated 5. Incentive spirometry 6. Pain control. Recommended to patient to only take Dilaudid if oral medications are not controlling his pain. Patient states last time he took [place], he felt lightheaded and dizzy and felt like he was going to faint. Will try Ultram for pain control 7. Anticipate discharge home tomorrow Nurse practitioner note has been reviewed by physician. Signing provider agrees with the documented findings, assessment, and plan of care. Objective - Vital Signs Vital signs: Vital Signs Temp 97.5 F L 06/09/18 07:00 Pulse 95 06/09/18 07:00 Resp 16 06/09/18 07:00 BP 126/81 06/09/18 07:00 Pulse Ox 99 06/09/18 07:00 Intake & Output 06/08/18 06/09/18 06/09/18 18:59 06:59 18:59 Intake Total 1900 Output Total 610 540 30 Balance 1290 -540 -30 Intake: IV 1900 Output: Drainage 60 40 30 Left Upper Abdomen 60 40 30 Urine 500 500 Stool 0 Estimated Blood Loss 50 Other: Voiding Method Urinal - Labs CBC & Chem 7: 06/09/18 07:15 06/09/18 07:13 Labs: Abnormal Lab Results - Last 24 Hours (Table) 06/09/18 06/09/18 Range/Units 07:13 07:15 WBC 13.0 H (3.8-10.6) k/uL Hgb 12.7 L (13.0-17.5) gm/dL Hct 38.8 L (39.0-53.0) % Neutrophils # 10.3 H (1.3-7.7) k/uL Sodium 136 L (137-145) mmol/L Glucose 107 H (74-99) mg/dL
--- NOTE | 2018-06-09 13:43 | P.DS ---
Providers Date of admission: 06/09/18 10:05 Expected date of discharge: 06/09/18 Attending physician: Arthur Madrigal Consults: 06/08/18 10:16 Consult Physician Routine Consulting Provider: Brittany Brush Consult Reason/Comments: Medical management Do you want consulting provider notified?: Yes Primary care physician: Cesar Shin Hospital Course: 53-year-old male who underwent repair of recurrent incarcerated incisional hernia. Patient is doing well postoperatively without any immediate complications. He was evaluated by Dr. Madrigal and deemed stable for discharge home POD #1. Patient reports he does not tolerate [place]. He is being discharged home with Ultram. Pain is tolerable at time of discharge. Please see EMR for further hospital course details. Discharge Diagnosis: 1. Status post repair of recurrent incarcerated incisional hernia 2. Leukocytosis Nurse practitioner note has been reviewed by physician. Signing provider agrees with the documented findings, assessment, and plan of care. Plan - Discharge Summary Discharge Rx Participant: No New Discharge Prescriptions: New traMADol HCl [Ultram] 50 mg PO Q6HR PRN 3 Days #12 tab PRN Reason: Pain Docusate [Colace] 100 mg PO BID #30 capsule No Action Metoprolol Succinate (ER) [Toprol Xl] 50 mg PO DAILY Dicyclomine [Bentyl] 20 mg PO TID amLODIPine [Norvasc] 10 mg PO DAILY Pantoprazole [Protonix] 40 mg PO BID Atorvastatin [Lipitor] 10 mg PO DAILY Butalbital/Acetaminophen [Butalbital/Acetaminophen 50-300mg] 1 cap PO DAILY PRN PRN Reason: Headache Albuterol Inhaler [Ventolin Hfa Inhaler] 1 - 2 puff INHALATION RT-Q6H PRN PRN Reason: Shortness Of Breath Metoprolol Succinate (ER) [Toprol Xl] 25 mg PO HS Hydrochlorothiazide [Hydrodiuril] 25 mg PO DAILY Lisinopril 40 mg PO DAILY Discharge Medication List Atorvastatin [Lipitor] 10 mg PO DAILY 04/15/18 [History] Butalbital/Acetaminophen [Butalbital/Acetaminophen 50-300mg] 1 cap PO DAILY PRN 04/15/18 [History] Dicyclomine [Bentyl] 20 mg PO TID 04/15/18 [History] Metoprolol Succinate (ER) [Toprol Xl] 50 mg PO DAILY 04/15/18 [History] Pantoprazole [Protonix] 40 mg PO BID 04/15/18 [History] amLODIPine [Norvasc] 10 mg PO DAILY 04/15/18 [History] Albuterol Inhaler [Ventolin Hfa Inhaler] 1 - 2 puff INHALATION RT-Q6H PRN 06/04/18 [History] Hydrochlorothiazide [Hydrodiuril] 25 mg PO DAILY 06/08/18 [History] Metoprolol Succinate (ER) [Toprol Xl] 25 mg PO HS 06/08/18 [History] Docusate [Colace] 100 mg PO BID #30 capsule 06/09/18 [Rx] Lisinopril 40 mg PO DAILY 06/09/18 [History] traMADol HCl [Ultram] 50 mg PO Q6HR PRN 3 Days #12 tab 06/09/18 [Rx] Follow up Appointment(s)/Referral(s): [facility], [NON-STAFF] - As Needed Arthur Madrigal MD [STAFF PHYSICIAN] - 06/16/18 2:10 pm Activity/Diet/Wound Care/Special Instructions: No driving while taking pain medicine No lifting over 10 pounds You may shower. No soaking or tub baths Very light activity until you are reevaluated at your follow up appointment with your surgeon PREVENA wound system to be removed on postop day #7 by home care nurse Keep a log of JUAN FRANCISCO drain output. Bring with you to your follow-up appointment with Dr. Madrigal
[2018-06-09 15:35] VITALS: BP 122/87; PULSE 87; TEMP 97.8
--- NOTE | 2018-06-28 21:11 | P.PN ---
Subjective Progress Note Date: 06/09/18 Principal diagnosis: Incisional hernia repair. Pt. is a 52-year-old male with a known history of hypertension, hyperlipidemia, history of CVA/TIA, COPD quit smoking 6 months ago, history of renal stones status post lithotripsy and prior history of incisional hernia repair was a dmitted to the hospital for elective incisional hernia repair. Patient also morbid obesity BMI 42.0. Patient tolerated the procedure very well. Currently denied any complaints of abdominal pain. No complaints of chest pain or shortness of breath. No nausea vomiting or abdominal pain. No headache or dizziness or lightheadedness. No fever no chills. Blood pressure is on the lower side of his surgery. Pain is really controlled. 06/09/2018 Patient denied any complaints of chest pain or shortness of breath. No nausea vomiting or abdominal pain. Slight soreness at the surgical site. Otherwise no acute overnight issues. Current medications reviewed. Objective - Vital Signs Vital signs: Vital Signs Temp 97.8 F 06/09/18 15:00 Pulse 87 06/09/18 15:00 Resp 16 06/09/18 15:00 BP 122/87 06/09/18 15:00 Pulse Ox 99 06/09/18 15:00 Intake & Output 06/08/18 06/09/18 06/09/18 18:59 06:59 18:59 Intake Total 1900 Output Total 610 540 280 Balance 1290 -540 -280 Intake: IV 1900 Output: Drainage 60 40 30 Left Upper Abdomen 60 40 30 Urine 500 500 250 Stool 0 Estimated Blood Loss 50 Other: Voiding Method Urinal - Exam PHYSICAL EXAMINATION: Patient is lying in the bed comfortably, no acute distress, awake alert and oriented.. HEENT: Normocephalic. Neck is supple. Pupils reactive. Nostrils clear. Oral cavity is moist. Ears reveal no drainage. Neck reveals no JVD, carotid bruits, or thyromegaly. CHEST EXAMINATION: Trachea is central. Symmetrical expansion. Lung kearney clear to auscultation and percussion. CARDIAC: Normal S1, S2 with no gallops. No murmurs ABDOMEN: Soft. Obese, abdominal surgical site intact and bandaged. Bowel sounds normal. No organomegaly. No abdominal bruits. Extremities: 1+edema. No clubbing or cyanosis Neurologically awake, alert, oriented x3 with well-coordinated movements. No focal deficits noted Skin: No rash or skin lesions. Psychiatric: Coperative. Nonsuicidal Musculoskeletal: No joint swelling or deformity. Normal range of motion. - Labs CBC & Chem 7: 06/09/18 07:15 06/09/18 07:13 Labs: Abnormal Lab Results - Last 24 Hours (Table) 06/09/18 06/09/18 Range/Units 07:13 07:15 WBC 13.0 H (3.8-10.6) k/uL Hgb 12.7 L (13.0-17.5) gm/dL Hct 38.8 L (39.0-53.0) % Neutrophils # 10.3 H (1.3-7.7) k/uL Sodium 136 L (137-145) mmol/L Glucose 107 H (74-99) mg/dL Assessment and Plan Assessment: Status post incisional hernia repair. Postoperative day 0 Hypertension. Currently patient is hypotensive. Hyperlipidemia Morbid obesity BMI 42.0 COPD not in exacerbation Previous history of smoking about quit smoking 6 months back History of aneurysm on follow-up with cardiology History of renal stones status post lithotripsy GERD History of CVA/TIA without residual weakness DVT prophylaxis with heparin subcu Plan: Patient will be continued on pain medications and bowel regimen. Continue with DVT prophylaxis. Encourage incentive spirometry. Hold home blood pressure medications due to hypotension. Currently restarted once blood pressure improves.. Patient is on Norvasc, hydrochlorothiazide and lisinopril at home. Breathing treatments as needed. We will follow up closely with you. Further recommendations based on the clinical course. Patient is being discharged home today. Time with Patient: Greater than 30
== END 2018-06-09 17:03 | disposition home health service (06) ==
LOC: OR 07:29 → 4SSUR 10:12 → OR 06-09 04:20 → OBSVTOIN 06-09 10:05 → INTOOBSV 06-09 10:05 → UNDODISIN 06-09 17:03
PROVIDERS: ADMIT Surgery; ATTEND Surgery
PROC: 0WUF0JZ Supplement Abdominal Wall with Synthetic Substitute, Open Approach (ICD-10-PCS; principal; 2018-06-08 10:15)
DX: K43.0 Incisional hernia with obstruction, without gangrene (principal); I25.3 Aneurysm of heart; E66.01 Morbid (severe) obesity due to excess calories; Z68.41 Body mass index [BMI] 40.0-44.9, adult; D72.829 Elevated white blood cell count, unspecified; I95.9 Hypotension, unspecified; E78.5 Hyperlipidemia, unspecified; I10 Essential (primary) hypertension; J44.9 Chronic obstructive pulmonary disease, unspecified; K21.9 Gastro-esophageal reflux disease without esophagitis; M19.90 Unspecified osteoarthritis, unspecified site; Z87.891 Personal history of nicotine dependence; Z87.442 Personal history of urinary calculi; Z86.73 Personal history of transient ischemic attack (TIA), and cerebral infarction without residual deficits; Z79.899 Other long term (current) drug therapy; Z82.49 Family history of ischemic heart disease and other diseases of the circulatory system; Z83.3 Family history of diabetes mellitus; Z88.8 Allergy status to other drugs, medicaments and biological substances; Z88.5 Allergy status to narcotic agent
CPT/HCPCS: 94760; 64486; 80048; 85025; 49566; 49568; G0378 ×2; C1781; J2543; J2250; J1644; J2710; J2765; J0690; J2405; J2001; J1650; J3010; J1885 ×2; J1100; J2795; J2370; J0330; J2704; J1170 ×2

== ENCOUNTER 2018-07-09 13:09 | Emergency (ER) | payer OTHER ==
--- NOTE | 2018-07-09 13:47 | ED ---
Chest Pain HPI - General Chief Complaint: Chest Pain Stated Complaint: chest pain Time Seen by Provider: 07/09/18 13:22 Source: patient, EMS, RN notes reviewed, old records reviewed Mode of arrival: EMS Limitations: no limitations - History of Present Illness Initial Comments: This is a 53-year-old male the ER for evaluation right-sided chest pain right- sided chest pain 3 days episodic and intermittent. Patient is currently having chest pain currently having abdominal pain. Patient is one month postop ventral hernia repair. Postop course was uncomplicated no fevers. MD Complaint: chest pain -: days(s) Onset: during rest, during exertion Pain Location: right chest Pain Radiation: none Severity: moderate Severity scale (1-10): 5 Consistency: intermittent Improves With: nothing Worsens With: nothing Treatments Prior to Arrival: none - Related Data Home Medications Medication Instructions Recorded Confirmed Atorvastatin [Lipitor] 10 mg PO HS 04/15/18 07/09/18 Butalbital/Acetaminophen 1 cap PO DAILY PRN 04/15/18 07/09/18 [Butalbital/Acetaminophen 50-300mg] Metoprolol Succinate (ER) [Toprol 50 mg PO DAILY 04/15/18 07/09/18 XL] Pantoprazole [Protonix] 40 mg PO BID 04/15/18 07/09/18 Hydrochlorothiazide [Hydrodiuril] 25 mg PO DAILY 07/09/18 07/09/18 Losartan Potassium 100 mg PO DAILY 07/09/18 07/09/18 Metoprolol Succinate [Toprol Xl] 25 mg PO HS 07/09/18 07/09/18 amLODIPine [Norvasc] 5 mg PO DAILY 07/09/18 07/09/18 Allergies Allergy/AdvReac Type Severity Reaction Status Date / Time hydrocodone [From [place]] AdvReac Nausea, Verified 07/09/18 14:06 light headed ranitidine HCl [From Zantac] AdvReac Nausea & Verified 07/09/18 14:07 Vomiting Review of Systems ROS Statement: Those systems with pertinent positive or pertinent negative responses have been documented in the HPI. ROS Other: All systems not noted in ROS Statement are negative. EKG Findings - EKG Comments: EKG Findings:: EKG shows sinus rhythm rate of 84, FL 146, QRS 86, QTc 408 Past Medical History Past Medical History: Chest Pain / Angina, COPD, CVA/TIA, GERD/Reflux, Hyperlipidemia, Hypertension, Osteoarthritis (OA) Additional Past Medical History / Comment(s): HX OF KIDNEY STONES, TIA,. STATES HE HAS AN ANEURYSM ON THE HEART AND IT IS BEING MONITORED BY A CARTON INSPECTOR. History of Any Multi-Drug Resistant Organisms: None Reported Past Surgical History: Hernia Repair Additional Past Surgical History / Comment(s): Lithotripsy, HERNIA SURGERY X4 Past Anesthesia/Blood Transfusion Reactions: No Reported Reaction Past Psychological History: No Psychological Hx Reported Smoking Status: Former smoker Past Alcohol Use History: None Reported Past Drug Use History: None Reported - Past Family History Mother Family Medical History: Coronary Artery Disease (CAD), Diabetes Mellitus Father Family Medical History: CVA/TIA, Hypertension General Exam Limitations: no limitations General appearance: alert, in no apparent distress Head exam: Present: atraumatic, normocephalic, normal inspection Eye exam: Present: normal appearance, PERRL, EOMI. Absent: scleral icterus, conjunctival injection, periorbital swelling ENT exam: Present: normal exam, mucous membranes moist Neck exam: Present: normal inspection. Absent: tenderness, meningismus, lymphadenopathy Respiratory exam: Present: normal lung sounds bilaterally. Absent: respiratory distress, wheezes, rales, rhonchi, stridor Cardiovascular Exam: Present: regular rate, normal rhythm, normal heart sounds. Absent: systolic murmur, diastolic murmur, rubs, gallop, clicks GI/Abdominal exam: Present: soft, normal bowel sounds. Absent: distended, tenderness, guarding, rebound, rigid Extremities exam: Present: normal inspection, full ROM, normal capillary refill. Absent: tenderness, pedal edema, joint swelling, calf tenderness Back exam: Present: normal inspection Neurological exam: Present: alert, oriented X3, CN II-XII intact Psychiatric exam: Present: normal affect, normal mood Skin exam: Present: warm, dry, intact, normal color. Absent: rash Course Vital Signs 07/09/18 07/09/18 07/09/18 13:11 13:54 16:05 Temperature 98.2 F 98.4 F Pulse Rate 91 85 82 Respiratory 18 18 17 Rate Blood Pressure 182/107 128/94 115/78 O2 Sat by Pulse 99 99 98 Oximetry 07/09/18 17:09 Temperature 98.8 F Pulse Rate 84 Respiratory 15 Rate Blood Pressure 121/83 O2 Sat by Pulse 98 Oximetry - Reevaluation(s) Reevaluation #1: 07/10/18 10:54 Medical records reviewed Reevaluation #2: 07/10/18 10:54 Patient does have current adequate pain control Chest Pain MDM - MDM 50 female the ER with evaluation of pain abdominal pain chest pain, patient is CT chest abdomen pelvis negative for any cause of chest pain, negative for any postop changes. Patient can be discharged home Disposition Clinical Impression: Chest pain, Post-operative pain, Abdominal pain Disposition: HOME SELF-CARE Condition: Good Instructions (If sedation given, give patient instructions): Chest Pain (ED), Abdominal Pain (ED) Is patient prescribed a controlled substance at d/c from ED?: No Referrals: Aleida Guerrero MD [Primary Care Provider] - 1-2 days
[2018-07-09 14:26] LABS: Basophils # (A) 0.1 k/uL (0-0.2); Basophils % (A) 1 %; Eosinophils # (A) 0.1 k/uL (0-0.7); Eosinophils % (A) 2 %; HCT 44.5 % (39.0-53.0); HGB 14.9 gm/dL (13.0-17.5); Lymphocytes % (A) 28 %; MCH 28.2 pg (25.0-35.0); MCHC 33.5 g/dL (31.0-37.0); MCV 84.1 fL (80.0-100.0); Mean Platelet Volume 7.5; Monocytes # (A) 0.5 k/uL (0-1.0); Monocytes % (A) 7 %; Neutrophils # (A) 4.1 k/uL (1.3-7.7); Neutrophils % (A) 60 %; Platelet Count 280 k/uL (150-450); RDW 13.5 % (11.5-15.5); WBC 6.9 k/uL (3.8-10.6)
--- NOTE | 2018-07-09 14:32 | XR ---
EXAMINATION TYPE: XR chest 2V DATE OF EXAM: 07/09/2018 COMPARISON: None INDICATION: Hernia repair, COPD TECHNIQUE: Frontal and lateral views of the chest are obtained. FINDINGS: The heart size is normal. The pulmonary vasculature is normal. The lungs are clear. IMPRESSION: 1. No acute pulmonary process.
[2018-07-09 14:34] LABS: INR 0.9 (<1.2); Partial Thromboplastin Time 29.6 sec (22.0-30.0)
[2018-07-09 14:59] LABS: ALT 30 U/L (21-72); AST 30 U/L (17-59); Albumin 4.6 g/dL (3.5-5.0); Alkaline Phosphatase 79 U/L (38-126); Anion Gap 11 mmol/L; Blood Urea Nitrogen 16 mg/dL (9-20); Calcium 9.6 mg/dL (8.4-10.2); Carbon Dioxide 24 mmol/L (22-30); Chloride 103 mmol/L (98-107); Glucose 99 mg/dL (74-99); Lipase 36 U/L (23-300); Magnesium 1.9 mg/dL (1.6-2.3); Potassium 4.3 mmol/L (3.5-5.1); Sodium 138 mmol/L (137-145); Total Bilirubin 0.9 mg/dL (0.2-1.3); Total Protein 8.6 g/dL (6.3-8.2)
[2018-07-09] MEDS ORDERED: SODIUM CHLORIDE 0.9% 1,000 ML IV STA (15:42)
[2018-07-09] MEDS ORDERED: MORPHINE SULFATE 4 MG/ML SYRINGE IVP STA (15:42)
--- NOTE | 2018-07-09 16:42 | CT ---
EXAMINATION TYPE: CT angio chest DATE OF EXAM: 07/09/2018 4:29 PM COMPARISON: None HISTORY: Abddominal pain post op hernia repair. CT DLP: 563.4 mGycm Automated exposure control for dose reduction was used. CONTRAST: CTA scan of the thorax is performed with IV Contrast, patient injected with 100 mL of Isovue 370, pul monary embolism protocol. . There are 3-D post processed images. FINDINGS: There is no mediastinal adenopathy. There is mild aneurysm of the ascending aorta that measures 4.3 c m. There is no evidence of dissection. Heart size is normal. There is no pericardial effusion. There are no hilar masses. There is normal contrast opacification of the pulmonary arteries. I see no filling defect. There is n o pleural effusion. There is mild pulmonary emphysema. Lungs are clear of consolidation. There is no evidence of a pulmon yang mass. There are numerous calcified gallstones. IMPRESSION: NO EVIDENCE OF PULMONARY EMBOLISM. MILD PULMONARY EMPHYSEMA. MILD ANEURYSM OF ASCENDING AORTA. CHOLELITHIASIS.
--- NOTE | 2018-07-09 16:49 | CT ---
EXAMINATION TYPE: CT abdomen pelvis w con DATE OF EXAM: 07/09/2018 COMPARISON: 05/28/2018 HISTORY: Abddominal pain post op hernia repair. CT DLP: 1706.4 mGycm Automated exposure control for dose reduction was used. TECHNIQUE: Helical acquisition of images was performed from the lung bases through the pelvis. CONTRAST: Performed without Oral Contrast and with IV Contrast, patient injected with 100 mL of Isovue 370. FINDINGS: Lung bases are clear of consolidation. There is no pleural effusion. Heart size is normal. Stomach appears normal. Liver spleen pancreas appear normal. Bile ducts are not dilated. There are mu ltiple calcified gallstones. There is no gallbladder wall thickening. There is no adrenal mass. Kidneys show satisfactory contrast opacification. There is no hydronephrosi s. There is 1 cm cortical cyst lower pole right kidney. Bladder distends smoothly. There is prostatic calcification. There is no inguinal hernia. There is no free fluid in the pelvis. There is no mesenteric edema. There is fat stranding around the anterior abdominal wall. There is sli ght thickening of the anterior abdominal wall and consistent with recent surgery and edema. There is been reduction of the ventral hernia compared to last exam. There is no evidence of a bowel obstruction. There is no sign of free air. There is no ascites. The a ppendix appears normal. There are mild spondylotic changes in the lumbar spine with disc space narrow ing at L3-4 and L4-5. There is no compression fracture. I see no focal bone destruction. IMPRESSION: POSTSURGICAL CHANGES ON THE ANTERIOR ABDOMINAL WALL WITH REDUCTION OF THE INCARCERATED VENTRAL HERNIA COMPARED TO LAST EXAM. THERE IS A 4 CM FAT DENSITY MASS ON THE INSIDE OF THE ANTERIOR ABDOMINAL WALL WITH MIXED ATTENUATION THAT COULD RELATE TO OMENTAL INFLAMMATION. NO ABSCESS SEEN.
[2018-07-09 17:11] VITALS: BP 121/83; PULSE 84; RESP 15; TEMP 98.8
== END 2018-07-09 17:10 | disposition home or self-care (01) ==
LOC: EC 13:09
DX: R07.9 Chest pain, unspecified (principal); R10.9 Unspecified abdominal pain; E78.5 Hyperlipidemia, unspecified; K21.9 Gastro-esophageal reflux disease without esophagitis; Z86.73 Personal history of transient ischemic attack (TIA), and cerebral infarction without residual deficits; I10 Essential (primary) hypertension; Z79.899 Other long term (current) drug therapy; Z87.891 Personal history of nicotine dependence; Z88.5 Allergy status to narcotic agent; Z88.8 Allergy status to other drugs, medicaments and biological substances
CPT/HCPCS: 36415; 93005; 83880; 80053; 83690; 83735; 84484; 85025; 85610; 85730; 71046; 71275; 74177; 99285; 96374; 96361; J2270; Q9967

== ENCOUNTER 2018-10-07 14:52 | Observation (INO) | payer OTHER ==
[2018-10-07 15:06] VITALS: RESP 18
[2018-10-07] MEDS ORDERED: KETOROLAC 30 MG/ML 1 ML VIAL IVP STA (15:19)
[2018-10-07] MEDS ORDERED: SODIUM CHLORIDE 0.9% 500 ML 500 ML IV STA (15:19)
[2018-10-07 15:53] LABS: Basophils # (A) 0.1 k/uL (0-0.2); Basophils % (A) 1 %; Eosinophils # (A) 0.2 k/uL (0-0.7); Eosinophils % (A) 2 %; HCT 43.4 % (39.0-53.0); HGB 14.7 gm/dL (13.0-17.5); Lymphocytes # (A) 2.2 k/uL (1.0-4.8); Lymphocytes % (A) 25 %; MCH 27.6 pg (25.0-35.0); MCHC 33.9 g/dL (31.0-37.0); MCV 81.6 fL (80.0-100.0); Mean Platelet Volume 7.3; Monocytes # (A) 0.6 k/uL (0-1.0); Monocytes % (A) 7 %; Neutrophils # (A) 5.5 k/uL (1.3-7.7); Neutrophils % (A) 63 %; Platelet Count 306 k/uL (150-450); RBC 5.32 m/uL (4.30-5.90); RDW 13.5 % (11.5-15.5); WBC 8.8 k/uL (3.8-10.6)
[2018-10-07 16:05] LABS: ALT 26 U/L (21-72); AST 23 U/L (17-59); African American GFR (CKD) >90 (>60 ml/min/1.73 sqM); Albumin 4.6 g/dL (3.5-5.0); Alkaline Phosphatase 106 U/L (38-126); Anion Gap 12 mmol/L; Blood Urea Nitrogen 12 mg/dL (9-20); Calcium 9.2 mg/dL (8.4-10.2); Carbon Dioxide 25 mmol/L (22-30); Chloride 103 mmol/L (98-107); Glucose 107 mg/dL (74-99); Potassium 4.1 mmol/L (3.5-5.1); Sodium 140 mmol/L (137-145); Total Bilirubin 0.5 mg/dL (0.2-1.3); Total Protein 7.7 g/dL (6.3-8.2)
--- NOTE | 2018-10-07 16:38 | ED ---
Abdominal Pain HPI - General Chief Complaint: Abdominal Pain Stated Complaint: ABDOMINAL PAIN Time Seen by Provider: 10/07/18 15:15 Source: patient, EMS Mode of arrival: EMS Limitations: no limitations - History of Present Illness Initial Comments: Patient is a 53-year-old male presents emergency Department via EMS with complaints of abdominal pain x 3 days and chest pain that started today. Patient describes this chest pain as "tightening" and located in the sternum and also towards the right side. Patient admits to history of small aneurysm, hyp ertension, hyperlipidemia, TIA, and COPD. Patient states he was complaining of some tightness in the chest yesterday as well. Patient's main complaint today is abdominal pain has been going on for 3 days and has been increasing over that time. Patient states he has said to have his gallbladder removed on Friday of next week. Patient was told that if his pain increases to come into the ER. Patient states his abdominal pain is moving around but is mostly located umbilical area and the right upper quadrant. Patient states he has tried Motrin in the past with minimal relief. Patient admits to mild nausea. Patient denies vomiting, fever, chills, diarrhea. No other complaints at this time. - Related Data Home Medications Medication Instructions Recorded Confirmed Atorvastatin [Lipitor] 10 mg PO HS 04/15/18 07/09/18 Butalbital/Acetaminophen 1 cap PO DAILY PRN 04/15/18 07/09/18 [Butalbital/Acetaminophen 50-300mg] Metoprolol Succinate (ER) [Toprol 50 mg PO DAILY 04/15/18 07/09/18 XL] Pantoprazole [Protonix] 40 mg PO BID 04/15/18 07/09/18 Losartan Potassium 100 mg PO DAILY 07/09/18 07/09/18 Metoprolol Succinate [Toprol Xl] 25 mg PO HS 07/09/18 07/09/18 amLODIPine [Norvasc] 5 mg PO DAILY 07/09/18 07/09/18 Allergies Allergy/AdvReac Type Severity Reaction Status Date / Time hydrocodone [From [place]] AdvReac Nausea, Verified 10/07/18 15:13 light headed ranitidine HCl [From Zantac] AdvReac Nausea & Verified 10/07/18 15:13 Vomiting Review of Systems ROS Statement: Those systems with pertinent positive or pertinent negative responses have been documented in the HPI. ROS Other: All systems not noted in ROS Statement are negative. Past Medical History Past Medical History: Chest Pain / Angina, COPD, CVA/TIA, GERD/Reflux, Hyperlipidemia, Hypertension, Osteoarthritis (OA) Additional Past Medical History / Comment(s): HX OF KIDNEY STONES, TIA,. STATES HE HAS AN ANEURYSM ON THE HEART AND IT IS BEING MONITORED BY A POLITICAL SCIENCE CHAIR. History of Any Multi-Drug Resistant Organisms: None Reported Past Surgical History: Hernia Repair Additional Past Surgical History / Comment(s): Lithotripsy, HERNIA SURGERY X4 Past Anesthesia/Blood Transfusion Reactions: No Reported Reaction Past Psychological History: No Psychological Hx Reported Smoking Status: Former smoker Past Alcohol Use History: None Reported Past Drug Use History: None Reported - Past Family History Mother Family Medical History: Coronary Artery Disease (CAD), Diabetes Mellitus Father Family Medical History: CVA/TIA, Hypertension General Exam - General Exam Comments Initial Comments: GENERAL: Well-appearing, well-nourished and in no acute distress. HEAD: Atraumatic, normocephalic. EYES: Pupils equal round and reactive to light, extraocular movements intact, sclera anicteric, conjunctiva are normal. ENT: TMs normal, nares patent, oropharynx clear without exudates. Moist mucous membranes. NECK: Normal range of motion, supple without lymphadenopathy or JVD. LUNGS: Breath sounds clear to auscultation bilaterally and equal. No wheezes rales or rhonchi. HEART: Regular rate and rhythm without murmurs, rubs or gallops. No pain with palpitation of the sternum or anterior chest. ABDOMEN: Generalized abdominal tenderness. Soft, normoactive bowel sounds. No guarding, no rebound. No masses appreciated. : Deferred EXTREMITIES: Normal range of motion, no pitting or edema. No clubbing or cyanosis. NEUROLOGICAL: Cranial nerves II through XII grossly intact. Normal speech, normal gait. PSYCH: Normal mood, normal affect. SKIN: Warm, Dry, normal turgor, no rashes or lesions noted. Limitations: no limitations Course Vital Signs 10/07/18 10/07/18 10/07/18 15:02 15:46 18:11 Temperature 97.0 F L Pulse Rate 95 90 73 Respiratory 18 18 18 Rate Blood Pressure 146/109 149/90 134/88 O2 Sat by Pulse 98 97 97 Oximetry Medical Decision Making - Medical Decision Making Patient is a 53-year-old male with complaints of abdominal pain 3 days and chest pain x one day. Patient is set to have his gallbladder removed on Friday of next week. Patient states his abdominal pain has been increasing the last 3 days. Patient describes this chest pain as tightness, that comes and goes and is located in middle of the chest and also the right side a bit. Patient has history of hypertension, TIA, hyperlipidemia, aneurysm, COPD. CBC, CMP, tropon in, UA are all within normal limits. EKG is sinus rhythm with no acute changes. Chest x-ray shows no acute disease. CT of the abdomen shows no acute or new findings to account for the patient's symptoms. Case is discussed with Dr. Huizar. Given patient's past medical history and current symptoms, patient will be admitted and observed. Patient is in agreement with this plan. Patient was accepted by Dr. Bran. - Lab Data Result diagrams: 10/07/18 15:40 10/07/18 15:40 Lab Results 10/07/18 10/07/18 10/07/18 Range/Units 15:40 15:40 15:40 WBC 8.8 (3.8-10.6) k/uL RBC 5.32 (4.30-5.90) m/uL Hgb 14.7 (13.0-17.5) gm/dL Hct 43.4 (39.0-53.0) % MCV 81.6 (80.0-100.0) fL MCH 27.6 (25.0-35.0) pg MCHC 33.9 (31.0-37.0) g/dL RDW 13.5 (11.5-15.5) % Plt Count 306 (150-450) k/uL Neutrophils % 63 % Lymphocytes % 25 % Monocytes % 7 % Eosinophils % 2 % Basophils % 1 % Neutrophils # 5.5 (1.3-7.7) k/uL Lymphocytes # 2.2 (1.0-4.8) k/uL Monocytes # 0.6 (0-1.0) k/uL Eosinophils # 0.2 (0-0.7) k/uL Basophils # 0.1 (0-0.2) k/uL Sodium 140 (137-145) mmol/L Potassium 4.1 (3.5-5.1) mmol/L Chloride 103 (98-107) mmol/L Carbon Dioxide 25 (22-30) mmol/L Anion Gap 12 mmol/L BUN 12 (9-20) mg/dL Creatinine 1.01 (0.66-1.25) mg/dL Est GFR (CKD-EPI)AfAm >90 (>60 ml/min/1.73 sqM) Est GFR (CKD-EPI)NonAf 85 (>60 ml/min/1.73 sqM) Glucose 107 H (74-99) mg/dL Calcium 9.2 (8.4-10.2) mg/dL Total Bilirubin 0.5 (0.2-1.3) mg/dL AST 23 (17-59) U/L ALT 26 (21-72) U/L Alkaline Phosphatase 106 (38-126) U/L Troponin I <0.012 (0.000-0.034) ng/mL Total Protein 7.7 (6.3-8.2) g/dL Albumin 4.6 (3.5-5.0) g/dL Urine Color Urine Appearance (Clear) Urine pH (5.0-8.0) Ur Specific [place] (1.001-1.035) Urine Protein (Negative) Urine Glucose (UA) (Negative) Urine Ketones (Negative) Urine Blood (Negative) Urine Nitrite (Negative) Urine Bilirubin (Negative) Urine Urobilinogen (<2.0) mg/dL Ur Leukocyte Esterase (Negative) Urine RBC (0-5) /hpf Urine WBC (0-5) /hpf Amorphous Sediment (None) /hpf Urine Mucus (None) /hpf Urine Sperm (None) /hpf 10/07/18 Range/Units 16:30 WBC (3.8-10.6) k/uL RBC (4.30-5.90) m/uL Hgb (13.0-17.5) gm/dL Hct (39.0-53.0) % MCV (80.0-100.0) fL MCH (25.0-35.0) pg MCHC (31.0-37.0) g/dL RDW (11.5-15.5) % Plt Count (150-450) k/uL Neutrophils % % Lymphocytes % % Monocytes % % Eosinophils % % Basophils % % Neutrophils # (1.3-7.7) k/uL Lymphocytes # (1.0-4.8) k/uL Monocytes # (0-1.0) k/uL Eosinophils # (0-0.7) k/uL Basophils # (0-0.2) k/uL Sodium (137-145) mmol/L Potassium (3.5-5.1) mmol/L Chloride (98-107) mmol/L Carbon Dioxide (22-30) mmol/L Anion Gap mmol/L BUN (9-20) mg/dL Creatinine (0.66-1.25) mg/dL Est GFR (CKD-EPI)AfAm (>60 ml/min/1.73 sqM) Est GFR (CKD-EPI)NonAf (>60 ml/min/1.73 sqM) Glucose (74-99) mg/dL Calcium (8.4-10.2) mg/dL Total Bilirubin (0.2-1.3) mg/dL AST (17-59) U/L ALT (21-72) U/L Alkaline Phosphatase (38-126) U/L Troponin I (0.000-0.034) ng/mL Total Protein (6.3-8.2) g/dL Albumin (3.5-5.0) g/dL Urine Color Light Yellow Urine Appearance Clear (Clear) Urine pH 5.5 (5.0-8.0) Ur Specific [place] 1.015 (1.001-1.035) Urine Protein Negative (Negative) Urine Glucose (UA) Negative (Negative) Urine Ketones Negative (Negative) Urine Blood Small H (Negative) Urine Nitrite Negative (Negative) Urine Bilirubin Negative (Negative) Urine Urobilinogen <2.0 (<2.0) mg/dL Ur Leukocyte Esterase Negative (Negative) Urine RBC 2 (0-5) /hpf Urine WBC 1 (0-5) /hpf Amorphous Sediment Rare H (None) /hpf Urine Mucus Rare H (None) /hpf Urine Sperm Rare (None) /hpf - EKG Data EKG Comments: Ventricular rate 88, WV interval 150, QTC 411. Normal sinus rhythm. No ST segment changes no T-wave changes. Disposition Clinical Impression: Abdominal pain, Chest pain, atypical Disposition: ADMITTED IP TO THIS HOSP Condition: Stable Is patient prescribed a controlled substance at d/c from ED?: No Decision Date: 10/07/18 Decision Time: 18:00
--- NOTE | 2018-10-07 16:38 | CT ---
EXAMINATION TYPE: CT abdomen pelvis w con DATE OF EXAM: 10/07/2018 COMPARISON: CT abdomen and pelvis July 09, 2018 HISTORY: RUQ and chest pain with right arm numbness CT DLP: 2014.3 mGycm, Automated Exposure Control for Dose Reduction was Utilized. CONTRAST: CT scan of the abdomen and pelvis is performed without oral but with IV Contrast, patient injected wi th 100 mL of Isovue 300. FINDINGS: LUNG BASES: No significant abnormality is appreciated. LIVER/GB: Small dependent calcified gallstones are present. No surrounding inflammatory change or tari picious fluid is present. PANCREAS: No significant abnormality is seen. SPLEEN: No significant abnormality is seen. ADRENALS: No significant abnormality is seen. KIDNEYS: There is subcentimeter simple thin-walled cyst anteriorly lower pole of right kidney axial i mage 45 redemonstrated. BOWEL: Evaluation of bowel slightly suboptimal secondary to lack of enteric contrast. Sutures in emily l loop mid to lower abdomen centrally image 62 are redemonstrated. This focal loop remains prominent with fecal air level. There is otherwise no suspicious small or large bowel dilatation. Normal-appear ing appendix is seen. PROSTATE/SEMINAL VESICLES: No gross abnormality seen. LYMPH NODES: No greater than 1cm abdominal or pelvic lymph nodes are appreciated. OSSEOUS STRUCTURES: [id number] multilevel disc space narrowing in the mid to lower lumbar spi ne is present L3-L4 through the L5-S1 levels. Mild multilevel anterior spurring is seen. OTHER: Vertical scar in the midline anterior abdominal wall remains present. Mild calcified plaque of the aorta extends into branch vessels. No recurrent hernia is seen. IMPRESSION: No significant new or acute finding is seen to account for patient's clinical symptoms.
[2018-10-07 16:41] LABS: Amorphous Sediment,Urine Rare /hpf; Appearance,Urine Clear (Clear); Bilirubin,Urine Negative (Negative); Blood,Urine Small (Negative); Color,Urine Light Yellow; Glucose,Urine (UA) Negative (Negative); Ketones,Urine Negative (Negative); Leukocyte Esterase,Urine Negative (Negative); Mucus,Urine Rare /hpf; Nitrite,Urine Negative (Negative); PH, Urine 5.5 (5.0-8.0); Protein,Urine Negative (Negative); RBC,Urine 2 /hpf (0-5); Specific Gravity,Urine 1.015 (1.001-1.035); Sperm,Urine Rare /hpf; Urobilinogen,Urine <2.0 mg/dL (<2.0)
--- NOTE | 2018-10-07 16:44 | XR ---
EXAMINATION TYPE: XR chest 2V DATE OF EXAM: 10/07/2018 COMPARISON: 07/09/2018 HISTORY: Chest pain TECHNIQUE: Frontal and lateral views of the chest are obtained. FINDINGS: Heart and mediastinum are normal. Lungs are clear. Diaphragm is normal. Bony thorax appear s normal. IMPRESSION: No active cardiopulmonary disease. Inspiration decreased slightly compared to last exam.
[2018-10-07] MEDS ORDERED: ACETAMINOPHEN TAB 325 MG TAB PO PRN (17:50)
[2018-10-07] MEDS ORDERED: ONDANSETRON 4 MG/2 ML VIAL IVP PRN (17:50)
[2018-10-07] MEDS ORDERED: NALOXONE 0.4 MG/ML 1 ML VIAL IV PRN (17:50)
[2018-10-07] MEDS ORDERED: KETOROLAC 30 MG/ML 1 ML VIAL IVP PRN (17:50)
[2018-10-07] MEDS ORDERED: SODIUM CHLORIDE 0.9% 1,000 ML IV SCH (18:00)
[2018-10-07 19:00] VITALS: BMI 43.5
[2018-10-07] MEDS: DOCUSATE 100 MG CAP PO SCH (19:53)
[2018-10-07] MEDS: SODIUM CHLORIDE 0.9% 1,000 ML IV SCH (19:53)
[2018-10-07] MEDS: PANTOPRAZOLE 40 MG/10 ML VIAL IVP SCH (19:54)
[2018-10-07] MEDS ORDERED: METOPROLOL SUCCINATE (ER) 25 MG TAB.ER.24H PO SCH (21:00)
[2018-10-08 07:35] VITALS: BP 107/72; PULSE 70; TEMP 97.8
[2018-10-08] MEDS ORDERED: METOPROLOL SUCCINATE (ER) 50 MG TAB.ER.24H PO SCH (09:00)
[2018-10-08] MEDS ORDERED: amLODIPine 10 MG TAB PO SCH (09:00)
[2018-10-08] MEDS ORDERED: LOSARTAN 50 MG TAB PO SCH (09:00)
[2018-10-08] MEDS: SODIUM CHLORIDE 0.9% 1,000 ML IV SCH (10:35)
--- NOTE | 2018-10-08 13:03 | CT ---
EXAMINATION TYPE: CT brain wo con DATE OF EXAM: 10/08/2018 COMPARISON: None INDICATION: Chest and abdominal pain. Right arm numbness DLP: 1123.4 mGycm, Automated exposure control for dose reduction was used. CONTRAST: None CT of the brain is performed utilizing 3 mm thick sections through the posterior fossa and 3 mm thick sections through the remaining calvarium. Study is performed within 24 hours of arrival to the hosp [facility]. No abnormal hyperdensity is present to suggest an acute intracranial hemorrhage. No mass lesion is evident. No acute infarcts are evident. Ventricles and sulci are appropriate for the patient age. Paranasal sinuses and mastoid air cells within the ljhnf-dv-[id number] are clear. IMPRESSIONS: 1. No acute intracranial process. MRI could be performed for closer evaluation if clinically warran
--- NOTE | 2018-10-08 13:06 | P.GSCN ---
History of Present Illness Consult date: 10/08/18 Reason for Consult: abdominal pain/gallbladder Requesting physician: Drake Hernández History of present illness: CHIEF COMPLAINT: abdominal pain HISTORY OF PRESENT ILLNESS: 53-year-old male with a history of known gallbladder disease who presented to the emergency room with chest pain and abdominal pain. patient is scheduled to have outpatient cholecystectomy next week with Dr. Madrigal. patient seen and examined at the bedside this morning. Patient states his abdominal pain has almost resolved. He denies nausea or vomiting. Denies constipation or diarrhea.WBC 8.8 on admission. Bilirubin 0.5. AST 23. ALT 26.CT was completed in the emergency room revealing gallstones with no evidence of acute cholecystitis. PAST MEDICAL HISTORY: See list. PAST SURGICAL HISTORY: See list. SOCIAL HISTORY: No illicit drug use. REVIEW OF SYSTEMS: CONSTITUTIONAL: Denies fever or chills. HEENT: Denies blurred vision, vision changes, or eye pain. Denies hemoptysis CARDIOVASCULAR: Denies chest pain or pressure. RESPIRATORY: No shortness of breath. GASTROINTESTINAL: Refer to HPI for pertinent findings HEMATOLOGIC: Denies bleeding disorders. GENITOURINARY: Denies any blood in urine. SKIN: Denies pruitis. Denies rash. PHYSICAL EXAM: VITAL SIGNS: Reviewed. GENERAL: Well-developed in no acute distress. HEENT: No sclera icterus. Extraocular movements grossly intact. Moist buccal mucosa. Head is atraumatic, normocephalic. ABDOMEN: Obese. Soft. Nondistended. Minimal tenderness with palpation. NEUROLOGIC: Alert and oriented. Cranial nerves II through XII grossly intact. ASSESSMENT: 1. Chest pain 2. Known history of gallbladder disease PLAN: May begin lowfat diet. Patient is stable for discharge home from a surgical standpoint. He is scheduled for outpatient cholecystectomy next week with Dr. Madrigal. Nurse practitioner note has been reviewed by physician. Signing provider agrees with the documented findings, assessment, and plan of care. Past Medical History Past Medical History: Chest Pain / Angina, COPD, CVA/TIA, GERD/Reflux, Hyperlipidemia, Hypertension, Osteoarthritis (OA) Additional Past Medical History / Comment(s): HX OF KIDNEY STONES, TIA,. STATES HE HAS AN ANEURYSM ON THE HEART AND IT IS BEING MONITORED BY A COMM[employer]ITY C[employer] WORKER. History of Any Multi-Drug Resistant Organisms: None Reported Past Surgical History: Hernia Repair Additional Past Surgical History / Comment(s): Lithotripsy, HERNIA SURGERY X4 Past Anesthesia/Blood Transfusion Reactions: No Reported Reaction Past Psychological History: No Psychological Hx Reported Smoking Status: Former smoker Past Alcohol Use History: None Reported Past Drug Use History: None Reported - Past Family History Mother Family Medical History: Coronary Artery Disease (CAD), Diabetes Mellitus Father Family Medical History: CVA/TIA, Hypertension Medications and Allergies Home Medications Medication Instructions Recorded Confirmed Type Atorvastatin [Lipitor] 40 mg PO HS 04/15/18 10/07/18 History Butalbital/Acetaminophen 1 cap PO DAILY PRN 04/15/18 10/07/18 History [Butalbital/Acetaminophen 50-300mg] Metoprolol Succinate (ER) [Toprol 50 mg PO DAILY 04/15/18 10/07/18 History XL] Pantoprazole [Protonix] 40 mg PO BID PRN 04/15/18 10/07/18 History Losartan Potassium 100 mg PO DAILY 07/09/18 10/07/18 History Metoprolol Succinate [Toprol Xl] 25 mg PO HS 07/09/18 10/07/18 History amLODIPine [Norvasc] 10 mg PO DAILY 07/09/18 10/07/18 History Docusate [Colace] 100 mg PO BID 10/07/18 10/07/18 History Hydrochlorothiazide [Hydrodiuril] 25 mg PO DAILY 10/07/18 10/07/18 History Allergies Allergy/AdvReac Type Severity Reaction Status Date / Time hydrocodone [From [place]] AdvReac Nausea, Verified 10/07/18 19:27 light headed ranitidine HCl [From Zantac] AdvReac Nausea & Verified 10/07/18 19:27 Vomiting Surgical - Exam Vital Signs Temp Pulse Resp BP Pulse Ox 97.0 F L 95 18 146/109 98 10/07/18 15:02 10/07/18 15:02 10/07/18 15:02 10/07/18 15:02 10/07/18 15:02 Results - Labs 10/07/18 15:40 10/07/18 15:40 Abnormal Lab Results - Last 24 Hours (Table) 10/07/18 10/07/18 Range/Units 15:40 16:30 Glucose 107 H (74-99) mg/dL Urine Blood Small H (Negative) Amorphous Sediment Rare H (None) /hpf Urine Mucus Rare H (None) /hpf Diabetes panel 10/07/18 Range/Units 15:40 Sodium 140 (137-145) mmol/L Potassium 4.1 (3.5-5.1) mmol/L Chloride 103 (98-107) mmol/L Carbon Dioxide 25 (22-30) mmol/L BUN 12 (9-20) mg/dL Creatinine 1.01 (0.66-1.25) mg/dL Glucose 107 H (74-99) mg/dL Calcium 9.2 (8.4-10.2) mg/dL AST 23 (17-59) U/L ALT 26 (21-72) U/L Alkaline Phosphatase 106 (38-126) U/L Total Protein 7.7 (6.3-8.2) g/dL Albumin 4.6 (3.5-5.0) g/dL Calcium panel 10/07/18 Range/Units 15:40 Calcium 9.2 (8.4-10.2) mg/dL Albumin 4.6 (3.5-5.0) g/dL Pituitary panel 10/07/18 Range/Units 15:40 Sodium 140 (137-145) mmol/L Potassium 4.1 (3.5-5.1) mmol/L Chloride 103 (98-107) mmol/L Carbon Dioxide 25 (22-30) mmol/L BUN 12 (9-20) mg/dL Creatinine 1.01 (0.66-1.25) mg/dL Glucose 107 H (74-99) mg/dL Calcium 9.2 (8.4-10.2) mg/dL Adrenal panel 10/07/18 Range/Units 15:40 Sodium 140 (137-145) mmol/L Potassium 4.1 (3.5-5.1) mmol/L Chloride 103 (98-107) mmol/L Carbon Dioxide 25 (22-30) mmol/L BUN 12 (9-20) mg/dL Creatinine 1.01 (0.66-1.25) mg/dL Glucose 107 H (74-99) mg/dL Calcium 9.2 (8.4-10.2) mg/dL Total Bilirubin 0.5 (0.2-1.3) mg/dL AST 23 (17-59) U/L ALT 26 (21-72) U/L Alkaline Phosphatase 106 (38-126) U/L Total Protein 7.7 (6.3-8.2) g/dL Albumin 4.6 (3.5-5.0) g/dL
[2018-10-08] MEDS: DOCUSATE 100 MG CAP PO SCH (13:26)
[2018-10-08] MEDS: PANTOPRAZOLE 40 MG/10 ML VIAL IVP SCH (13:26)
--- NOTE | 2018-10-08 14:12 | P.DS ---
Providers Date of admission: 10/07/18 17:47 Attending physician: Jamila Bran Consults: 10/07/18 19:27 Consult Physician Routine Consulting Provider: Arthur Madrigal Consult Reason/Comments: abdominal pain/gallbladder Do you want consulting provider notified?: Yes, Notify in am Primary care physician: Cesar Shin [facility] Course: Please refer to my HPI for further details Patient Condition at Discharge: Stable Plan - Discharge Summary Discharge Rx Participant: Yes New Discharge Prescriptions: No Action Metoprolol Succinate (ER) [Toprol XL] 50 mg PO DAILY Pantoprazole [Protonix] 40 mg PO BID PRN PRN Reason: Heartburn Atorvastatin [Lipitor] 40 mg PO HS Butalbital/Acetaminophen [Butalbital/Acetaminophen 50-300mg] 1 cap PO DAILY PRN PRN Reason: Headache amLODIPine [Norvasc] 10 mg PO DAILY Metoprolol Succinate [Toprol Xl] 25 mg PO HS Losartan Potassium 100 mg PO DAILY Hydrochlorothiazide [Hydrodiuril] 25 mg PO DAILY Docusate [Colace] 100 mg PO BID Discharge Medication List Atorvastatin [Lipitor] 40 mg PO HS 04/15/18 [History] Butalbital/Acetaminophen [Butalbital/Acetaminophen 50-300mg] 1 cap PO DAILY PRN 04/15/18 [History] Metoprolol Succinate (ER) [Toprol XL] 50 mg PO DAILY 04/15/18 [History] Pantoprazole [Protonix] 40 mg PO BID PRN 04/15/18 [History] Losartan Potassium 100 mg PO DAILY 07/09/18 [History] Metoprolol Succinate [Toprol Xl] 25 mg PO HS 07/09/18 [History] amLODIPine [Norvasc] 10 mg PO DAILY 07/09/18 [History] Docusate [Colace] 100 mg PO BID 10/07/18 [History] Hydrochlorothiazide [Hydrodiuril] 25 mg PO DAILY 10/07/18 [History] Follow up Appointment(s)/Referral(s): Aleida Guerrero MD [Primary Care Provider] - 3 Days Patient Instructions/Handouts: Low Fat Diet (DC) Activity/Diet/Wound Care/Special Instructions: ice pack to the neck Discharge Disposition: HOME SELF-CARE
--- NOTE | 2018-10-08 14:12 | P.HPIM ---
History of Present Illness 53-year-old pleasant male with a known Gallbladder disease came in with a right upper quadrant abdominal pain patient was scheduled for cholecystectomy by Dr. Lucas as an outpatient for Friday morning but because of his pain patient came to ER. Patient is also complaining of for numbness which lasted for 2 hours in the right arm which is associated with neck stiffness after getting up from bed. Which completely resolved at this time patient still has some neck stiffness. Patient had an EKG which showed sinus rhythm without any acute ST-T wave changes, troponins 3 sets were negative, obtain the CAT scan of the head which did not show any acute process. Patient abdominal pain completely resolved, CAT scan of the abdomen did not show any significant abnormality. Review of Systems REVIEW OF SYSTEMS: CONSTITUTIONAL: No fever, no malaise, no fatigue. HEENT: No recent visual problems or hearing problems. Denied any sore throat. CARDIOVASCULAR: No chest pain, orthopnea, PND, no palpitations, no syncope. PULMONARY: No shortness of breath, no cough, no hemoptysis. GASTROINTESTINAL: No diarrhea, no nausea, no vomiting, NEUROLOGICAL: No headaches, no weakness HEMATOLOGICAL: Denies any bleeding or petechiae. GENITOURINARY: Denies any burning micturition, frequency, or urgency. MUSCULOSKELETAL/RHEUMATOLOGICAL: Denies any joint pain, swelling, or any muscle pain. ENDOCRINE: Denies any polyuria or polydipsia. The rest of the 14-point review of systems is negative. Past Medical History Past Medical History: Chest Pain / Angina, COPD, CVA/TIA, GERD/Reflux, Hyperlipidemia, Hypertension, Osteoarthritis (OA) Additional Past Medical History / Comment(s): HX OF KIDNEY STONES, TIA,. STATES HE HAS AN ANEURYSM ON THE HEART AND IT IS BEING MONITORED BY A LABORER LANDSCAPE. History of Any Multi-Drug Resistant Organisms: None Reported Past Surgical History: Hernia Repair Additional Past Surgical History / Comment(s): Lithotripsy, HERNIA SURGERY X4 Past Anesthesia/Blood Transfusion Reactions: No Reported Reaction Past Psychological History: No Psychological Hx Reported Smoking Status: Former smoker Past Alcohol Use History: None Reported Past Drug Use History: None Reported - Past Family History Mother Family Medical History: Coronary Artery Disease (CAD), Diabetes Mellitus Father Family Medical History: CVA/TIA, Hypertension Medications and Allergies Home Medications Medication Instructions Recorded Confirmed Type Atorvastatin [Lipitor] 40 mg PO HS 04/15/18 10/07/18 History Butalbital/Acetaminophen 1 cap PO DAILY PRN 04/15/18 10/07/18 History [Butalbital/Acetaminophen 50-300mg] Metoprolol Succinate (ER) [Toprol 50 mg PO DAILY 04/15/18 10/07/18 History XL] Pantoprazole [Protonix] 40 mg PO BID PRN 04/15/18 10/07/18 History Losartan Potassium 100 mg PO DAILY 07/09/18 10/07/18 History Metoprolol Succinate [Toprol Xl] 25 mg PO HS 07/09/18 10/07/18 History amLODIPine [Norvasc] 10 mg PO DAILY 07/09/18 10/07/18 History Docusate [Colace] 100 mg PO BID 10/07/18 10/07/18 History Hydrochlorothiazide [Hydrodiuril] 25 mg PO DAILY 10/07/18 10/07/18 History Allergies Allergy/AdvReac Type Severity Reaction Status Date / Time hydrocodone [From [place]] AdvReac Nausea, Verified 10/07/18 19:27 light headed ranitidine HCl [From Zantac] AdvReac Nausea & Verified 10/07/18 19:27 Vomiting Physical Exam Vitals: Vital Signs Temp Pulse Pulse Resp BP BP Pulse Ox 10/08/18 07:00 97.8 F 70 18 107/72 98 10/08/18 00:00 98.2 F 86 18 106/67 97 10/07/18 18:44 98.1 F 87 18 142/91 97 10/07/18 18:11 73 18 134/88 97 10/07/18 15:46 90 18 149/90 97 10/07/18 15:02 97.0 F L 95 18 146/109 98 Intake and Output 10/07/18 10/08/18 10/08/18 22:59 06:59 14:59 Intake Total 400 Balance 400 Intake: Oral 400 Other: Voiding Method Toilet Toilet Toilet # Voids 2 2 Weight 126.099 kg PHYSICAL EXAMINATION: GENERAL: The patient is alert and oriented x3, not in any acute distress. Obese HEENT: Pupils are round and equally reacting to light. EOMI. No scleral icterus. No conjunctival pallor. Normocephalic, atraumatic. No pharyngeal erythema. No thyromegaly. CARDIOVASCULAR: S1 and S2 present. No murmurs, rubs, or gallops. PULMONARY: Chest is clear to auscultation, no wheezing or crackles. ABDOMEN: Soft, nontender, nondistended, normoactive bowel sounds. No palpable organomegaly. MUSCULOSKELETAL: No joint swelling or deformity. EXTREMITIES: No cyanosis, clubbing, or pedal edema. NEUROLOGICAL: Gross neurological examination did not reveal any focal deficits. SKIN: No rashes. Results CBC & Chem 7: 10/07/18 15:40 10/07/18 15:40 Labs: Abnormal Lab Results - Last 24 Hours (Table) 10/07/18 10/07/18 Range/Units 15:40 16:30 Glucose 107 H (74-99) mg/dL Urine Blood Small H (Negative) Amorphous Sediment Rare H (None) /hpf Urine Mucus Rare H (None) /hpf Thrombosis Risk Factor Assmnt - Choose All That Apply Any of the Below Risk Factors Present?: Yes Each Factor Represents 1 point: Abnormal pulmonary function (COPD), Age 41-60 years, Obesity (BMI >25) Other Risk Factors: No Thrombosis Risk Factor Assessment Total Risk Factor Score: 3 Thrombosis Risk Factor Assessment Level: Moderate Risk Assessment and Plan Plan: -Right upper quadrant abdominal pain which resolved with probably due to cholelithiasis patient is scheduled for surgery on Friday patient will be discharged today. -Numbness in the right arm there is no evidence of cerebral vascular accident appears to be secondary to degenerative neck disease and neck stiffness symptoms resolved at this time patient was apparently advised to use ice packs for his neck stiffness. Ruled out acute kidney syndrome as well -Obesity Line-COPD without any acute exacerbation Have gastroesophageal infectious disease next and-hyperlipidemia -Hypertension Patient will be discharged today
[2018-10-08] MEDS ORDERED: PANTOPRAZOLE 40 MG TABLET PO SCH (17:30)
== END 2018-10-08 14:52 | disposition home or self-care (01) ==
LOC: EC 14:52 → 1SOBS 17:47
PROVIDERS: ADMIT Internal Medicine; ATTEND Internal Medicine
DX: R10.11 Right upper quadrant pain (principal); R20.0 Anesthesia of skin; R07.89 Other chest pain; M43.6 Torticollis; J44.9 Chronic obstructive pulmonary disease, unspecified; K21.9 Gastro-esophageal reflux disease without esophagitis; K82.9 Disease of gallbladder, unspecified; K80.20 Calculus of gallbladder without cholecystitis without obstruction; E78.5 Hyperlipidemia, unspecified; I10 Essential (primary) hypertension; M19.90 Unspecified osteoarthritis, unspecified site; I25.3 Aneurysm of heart; E66.9 Obesity, unspecified; Z68.41 Body mass index [BMI] 40.0-44.9, adult; Z86.73 Personal history of transient ischemic attack (TIA), and cerebral infarction without residual deficits; Z87.442 Personal history of urinary calculi; Z87.891 Personal history of nicotine dependence; Z79.899 Other long term (current) drug therapy; Z88.8 Allergy status to other drugs, medicaments and biological substances; Z88.5 Allergy status to narcotic agent; Z82.49 Family history of ischemic heart disease and other diseases of the circulatory system; Z83.3 Family history of diabetes mellitus; Z82.3 Family history of stroke
CPT/HCPCS: 96361 ×2; 96375; 96376; 96374; 99285; 36415; 93005; 80053; 84484 ×2; 85025; 81001; 71046; 70450; 74177; G0378 ×2; J1885; C9113 ×2; Q9967

== ENCOUNTER → 2018-10-12 | Day surgery (SDC) | payer OTHER ==
[~2018-10-12] MED LIST changes: +Acetaminophen-Codeine 300-30mg TAB PO ONE; +BUPIVACAINE (PF) 0.5% 30 ML VIAL SQ ONE; +DEXAMETHASONE SOD PHOSPHATE 10 MG/ML 1 ML VIAL IV ONE; +GLYCOPYRROLATE 0.2 MG/ML 2 ML VIAL ONE; +HYDROmorphone (PF) 1 MG/ML ONE; +HYDROmorphone 1 MG/ML 1 ML SYRINGE IVP ONE; +KETOROLAC 30 MG/ML 1 ML VIAL ONE; +LIDOCAINE 1% INJ 10MG/ML (20 ML MDV) ONE; +MIDAZOLAM 2 MG/2 ML VIAL ONE; +NEOSTIGMINE 1 MG/ML 10 ML VIAL ONE; +PROPOFOL 10 MG/ML 20 ML VIAL IV ONE; +ROCURONIUM BROMIDE 10 MG/ML 10 ML VIAL IV ONE; +SCOPOLAMINE 1.5MG/72HR PATCH TRANSDERM ONE; +SUCCINYLCHOLINE CHLORIDE 100 MG/5 ML SYR IV ONE; +fentaNYL (PF) 50 MCG/ML 2 ML AMP IV PRN; +fentaNYL (PF) 50 MCG/ML 2 ML AMP ONE
[2018-10-12] MEDS: LACTATED RINGERS 1,000 ML IV SCH ×2 (08:29→10:24)
--- NOTE | 2018-10-12 08:40 | P.GSHP ---
History of Present Illness H&P Date: 10/12/18 Chief Complaint: Right upper quadrant pain, cholelithiasis This a 53-year-old male who presents today for laparoscopic cholestatic. Patient had complaints of right upper quadrant pain. He has cholelithiasis. Patient also has extensive midline scar. Using he is aware of the risk of conversion to the open procedure. Past Medical History Past Medical History: Chest Pain / Angina, COPD, CVA/TIA, GERD/Reflux, Hyperlipidemia, Hypertension, Osteoarthritis (OA) Additional Past Medical History / Comment(s): HX OF KIDNEY STONES, TIA. STATES HE HAS AN ANEURYSM ON THE HEART AND IT IS BEING MONITORED BY A LEI SELLER. History of Any Multi-Drug Resistant Organisms: None Reported Past Surgical History: Hernia Repair Additional Past Surgical History / Comment(s): 06/08/18 INCARCERATED INCISIONAL HERNIA (2) THREEE OTHER HERNIA SURGERY. SURGERY X4. Lithotripsy, Past Anesthesia/Blood Transfusion Reactions: No Reported Reaction Past Psychological History: No Psychological Hx Reported Smoking Status: Former smoker Past Alcohol Use History: None Reported Additional Past Alcohol Use History / Comment(s): STARTED SMOKING SMOKING AT AGE 12 QUIT AT JAN 2018 SMOKED 1PPD. Past Drug Use History: None Reported Additional Drug Use History / Comment(s): . - Past Family History Mother Family Medical History: Coronary Artery Disease (CAD), Diabetes Mellitus Father Family Medical History: CVA/TIA, Hypertension Medications and Allergies Home Medications Medication Instructions Recorded Confirmed Type Atorvastatin [Lipitor] 40 mg PO HS 04/15/18 10/12/18 History Metoprolol Succinate (ER) [Toprol 50 mg PO QAM 04/15/18 10/12/18 History XL] Pantoprazole [Protonix] 40 mg PO BID 04/15/18 10/12/18 History Losartan Potassium 100 mg PO QAM 07/09/18 10/12/18 History Metoprolol Succinate [Toprol Xl] 25 mg PO HS 07/09/18 10/12/18 History amLODIPine [Norvasc] 10 mg PO QAM 07/09/18 10/12/18 History Docusate [Colace] 100 mg PO BID 10/07/18 10/12/18 History Aspirin [Adult Low Dose Aspirin EC] 81 mg PO DAILY 10/09/18 10/09/18 History Allergies Allergy/AdvReac Type Severity Reaction Status Date / Time hydrocodone [From [place]] AdvReac Nausea, Verified 10/12/18 08:11 light headed ranitidine HCl [From Zantac] AdvReac Nausea & Verified 10/12/18 08:11 Vomiting Surgical - Exam Vital Signs Temp Pulse Resp BP Pulse Ox 99.7 F H 95 16 173/95 97 10/12/18 08:13 10/12/18 08:13 10/12/18 08:13 10/12/18 08:13 10/12/18 08:13 - General well developed, well nourished, no distress - Eyes PERRL - ENT normal pinna - Neck no masses - Respiratory normal expansion - Cardiovascular Rhythm: regular - Abdomen Right upper quadrant pain, midline scar Abdomen: soft Assessment and Plan Assessment: Lithiasis Chronic cholecystitis We'll perform laparoscopic cholecystectomy. Patient is aware of risk of conversion to the open procedure due to adhesions.
[2018-10-12 09:58] VITALS: TEMP 97.5
--- NOTE | 2018-10-12 10:17 | P.OP ---
Date of Procedure: 10/12/18 Preoperative Diagnosis: Cholecystitis Cholelithiasis Postoperative Diagnosis: Cholecystitis Cholelithiasis Procedure(s) Performed: Endoscopic cholecystectomy Anesthesia: APOLINAR Surgeon: Arthur Madrigal Estimated Blood Loss (ml): 10 Pathology: other (gall bladder) Disposition: PACU Description of Procedure: The patient was placed on the operating table. The patient had a large midline scar from previous repair. A 5 mm optical trocar was placed left lateral position. Her recent adhesions noted. This point another 5 mm trochars placed in position the left quadrant. The first trocar back into the cavity. And then following this a 5 mm trochars placed at the umbilicus. And then a 8 mm tr ochars placed in the epigastric position and then to fibrillar trocar is placed in the right lateral and right subcostal position. . The gallbladder was grasped in the fundus and infundibulum. Traction on the gallbladder was placed in the lateral and the cephalad positions. The triangle of [place] was visualized.. The cystic duct was bluntly dissected until the union of the cystic duct and common bile duct was seen. A critical view of safety was achieved. The cystic duct was then divided and sealed with the Harmonic scissors. A PDS Endoloop was then placed throughout the cystic lamin t stump. The cystic artery divided and sealed with the Harmonic scissors. The gallbladder was then removed from the liver bed using Harmonic scissors. The gallbladder was then extracted through the epigastric port site. Operative field was checked for any bleeding spots and Harmonic scissors was used to coagulate the liver bed. The abdomen was irrigated. The trocars were removed. The skin was closed using interrupted 3-0 Vicryl suture. Dermabond dressing were applied. The patient tolerated the procedure well.
[2018-10-12 11:04] VITALS: RESP 16
[2018-10-12 12:27] VITALS: BP 112/75; PULSE 81
== END | disposition home or self-care (01) ==
LOC: OR 08:00
PROVIDERS: ATTEND Surgery
DX: K80.10 Calculus of gallbladder with chronic cholecystitis without obstruction (principal); E78.5 Hyperlipidemia, unspecified; I10 Essential (primary) hypertension; J44.9 Chronic obstructive pulmonary disease, unspecified; K21.9 Gastro-esophageal reflux disease without esophagitis; M19.90 Unspecified osteoarthritis, unspecified site; Z79.82 Long term (current) use of aspirin; Z79.899 Other long term (current) drug therapy; Z82.49 Family history of ischemic heart disease and other diseases of the circulatory system; Z86.73 Personal history of transient ischemic attack (TIA), and cerebral infarction without residual deficits; Z87.442 Personal history of urinary calculi; Z87.891 Personal history of nicotine dependence; Z88.5 Allergy status to narcotic agent; Z88.8 Allergy status to other drugs, medicaments and biological substances
CPT/HCPCS: 88304; 47562; J2250; J1644; J1100; J2710; J2405; J2001; J3010; J1885; J1170; J0330; J2704

== ENCOUNTER 2018-10-14 12:28 | Emergency (ER) | payer OTHER ==
[2018-10-14] MEDS ORDERED: SODIUM CHLORIDE 0.9% 1,000 ML IV STA ×2 (12:54)
[2018-10-14] MEDS ORDERED: ONDANSETRON 4 MG/2 ML VIAL IVP STA (13:17)
[2018-10-14] MEDS ORDERED: MORPHINE SULFATE 4 MG/ML SYRINGE IVP STA (13:17)
[2018-10-14] MEDS ORDERED: KETOROLAC 30 MG/ML 1 ML VIAL IVP STA (13:17)
--- NOTE | 2018-10-14 13:21 | ED ---
Abdominal Pain HPI - General Chief Complaint: Abdominal Pain Stated Complaint: bilat arm tingling Time Seen by Provider: 10/14/18 12:50 Source: patient, EMS, RN notes reviewed, old records reviewed Mode of arrival: EMS Limitations: no limitations - History of Present Illness Initial Comments: 53-year-old male presents emergency department today for evaluation for abdominal pain and nausea. He states he also had bilateral arm tingling earlier today. He reports that that subsided upon arrival. Patient's had history of cholecystectomy done 2 days ago. He states that no vomiting or she has not had a bowel movement in the past 3 days. Patient reports that he has had no fevers or chills. Denies any drainage from incision sites. He denies any associated chest pain at this time. Does report that he's had multiple hernia repair surgeries by Dr. Madrigal. - Related Data Home Medications Medication Instructions Recorded Confirmed Atorvastatin [Lipitor] 40 mg PO HS 04/15/18 10/14/18 Metoprolol Succinate (ER) [Toprol 50 mg PO QAM 04/15/18 10/14/18 XL] Pantoprazole [Protonix] 40 mg PO BID 04/15/18 10/14/18 Losartan Potassium 100 mg PO QAM 07/09/18 10/14/18 Metoprolol Succinate [Toprol Xl] 25 mg PO HS 07/09/18 10/14/18 amLODIPine [Norvasc] 10 mg PO QAM 07/09/18 10/14/18 Docusate [Colace] 100 mg PO BID 10/07/18 10/14/18 Aspirin [Adult Low Dose Aspirin EC] 81 mg PO DAILY 10/09/18 10/14/18 Previous Rx's Medication Instructions Recorded Acetaminophen-Codeine 300-30mg 1 tab PO Q4H PRN 3 Days #18 tablet 10/12/18 [Tylenol w/codeine #3] Allergies Allergy/AdvReac Type Severity Reaction Status Date / Time hydrocodone [From [place]] AdvReac Nausea, Verified 10/14/18 13:01 light headed ranitidine HCl [From Zantac] AdvReac Nausea & Verified 10/14/18 13:01 Vomiting Review of Systems ROS Statement: Those systems with pertinent positive or pertinent negative responses have been documented in the HPI. ROS Other: All systems not noted in ROS Statement are negative. Past Medical History Past Medical History: Chest Pain / Angina, COPD, CVA/TIA, GERD/Reflux, Hyperlipidemia, Hypertension, Osteoarthritis (OA) Additional Past Medical History / Comment(s): HX OF KIDNEY STONES, TIA. STATES HE HAS AN ANEURYSM ON THE HEART AND IT IS BEING MONITORED BY A CRIME SCENE EXAMINER. History of Any Multi-Drug Resistant Organisms: None Reported Past Surgical History: Cholecystectomy, Hernia Repair Additional Past Surgical History / Comment(s): 06/08/18 INCARCERATED INCISIONAL HERNIA (2) THREEE OTHER HERNIA SURGERY. SURGERY X4. Lithotripsy, Past Anesthesia/Blood Transfusion Reactions: No Reported Reaction Past Psychological History: No Psychological Hx Reported Smoking Status: Former smoker Past Alcohol Use History: None Reported Past Drug Use History: None Reported - Past Family History Mother Family Medical History: Coronary Artery Disease (CAD), Diabetes Mellitus Father Family Medical History: CVA/TIA, Hypertension General Exam - General Exam Comments Initial Comments: Well appearing 53 year old male, no distress. Limitations: no limitations General appearance: alert, in no apparent distress Head exam: Present: atraumatic, normocephalic, normal inspection Eye exam: Present: normal appearance, PERRL, EOMI. Absent: scleral icterus, conjunctival injection, periorbital swelling ENT exam: Present: normal exam, mucous membranes moist Neck exam: Present: normal inspection. Absent: tenderness, meningismus, lymphadenopathy Respiratory exam: Present: normal lung sounds bilaterally. Absent: respiratory distress, wheezes, rales, rhonchi, stridor Cardiovascular Exam: Present: regular rate, normal rhythm, normal heart sounds, other (well appearing incision sites over abdomen. Minimal RUQ tenderness. ). Absent: systolic murmur, diastolic murmur, rubs, gallop, clicks GI/Abdominal exam: Present: soft, normal bowel sounds. Absent: distended, tenderness, guarding, rebound, rigid Extremities exam: Present: normal inspection, full ROM, normal capillary refill. Absent: tenderness, pedal edema, joint swelling, calf tenderness Back exam: Present: normal inspection Psychiatric exam: Present: normal affect, normal mood Skin exam: Present: warm, dry, intact, normal color. Absent: rash Course Vital Signs 10/14/18 10/14/18 10/14/18 12:44 13:52 14:00 Temperature 98.0 F Pulse Rate 75 72 69 Respiratory 16 18 16 Rate Blood Pressure 155/102 119/83 O2 Sat by Pulse 97 97 97 Oximetry 10/14/18 10/14/18 16:00 17:10 Temperature 97.9 F Pulse Rate 72 89 Respiratory 18 18 Rate Blood Pressure 124/86 128/87 O2 Sat by Pulse 97 98 Oximetry Medical Decision Making - Medical Decision Making 53 year old male with post op pain after gallbladder removal. Patient also complainted of arm tingling. EKG and labs are normal. CT shows no acute conc erning process following surgery. Discussed patient follow up with PCP and surgeon. - Lab Data Result diagrams: 10/14/18 13:45 10/14/18 13:45 Lab Results 10/14/18 10/14/18 10/14/18 Range/Units 13:45 13:45 13:45 WBC 11.0 H (3.8-10.6) k/uL RBC 5.16 (4.30-5.90) m/uL Hgb 13.8 (13.0-17.5) gm/dL Hct 42.0 (39.0-53.0) % MCV 81.4 (80.0-100.0) fL MCH 26.8 (25.0-35.0) pg MCHC 32.9 (31.0-37.0) g/dL RDW 14.8 (11.5-15.5) % Plt Count 306 (150-450) k/uL Neutrophils % 61 % Lymphocytes % 28 % Monocytes % 7 % Eosinophils % 2 % Basophils % 1 % Neutrophils # 6.7 (1.3-7.7) k/uL Lymphocytes # 3.0 (1.0-4.8) k/uL Monocytes # 0.8 (0-1.0) k/uL Eosinophils # 0.2 (0-0.7) k/uL Basophils # 0.1 (0-0.2) k/uL PT 9.8 (9.0-12.0) sec INR 0.9 (<1.2) APTT 26.9 (22.0-30.0) sec Sodium 139 (137-145) mmol/L Potassium 4.0 (3.5-5.1) mmol/L Chloride 102 (98-107) mmol/L Carbon Dioxide 28 (22-30) mmol/L Anion Gap 9 mmol/L BUN 14 (9-20) mg/dL Creatinine 0.96 (0.66-1.25) mg/dL Est GFR (CKD-EPI)AfAm >90 (>60 ml/min/1.73 sqM) Est GFR (CKD-EPI)NonAf >90 (>60 ml/min/1.73 sqM) Glucose 100 H (74-99) mg/dL Calcium 8.9 (8.4-10.2) mg/dL Total Bilirubin 0.4 (0.2-1.3) mg/dL AST 29 (17-59) U/L ALT 22 (21-72) U/L Alkaline Phosphatase 79 (38-126) U/L Troponin I (0.000-0.034) ng/mL Total Protein 7.2 (6.3-8.2) g/dL Albumin 4.4 (3.5-5.0) g/dL Amylase 48 (30-110) U/L Lipase 38 (23-300) U/L Urine Color Urine Appearance (Clear) Urine pH (5.0-8.0) Ur Specific [place] (1.001-1.035) Urine Protein (Negative) Urine Glucose (UA) (Negative) Urine Ketones (Negative) Urine Blood (Negative) Urine Nitrite (Negative) Urine Bilirubin (Negative) Urine Urobilinogen (<2.0) mg/dL Ur Leukocyte Esterase (Negative) Urine RBC (0-5) /hpf Urine WBC (0-5) /hpf Urine Mucus (None) /hpf 10/14/18 10/14/18 Range/Units 13:45 15:09 WBC (3.8-10.6) k/uL RBC (4.30-5.90) m/uL Hgb (13.0-17.5) gm/dL Hct (39.0-53.0) % MCV (80.0-100.0) fL MCH (25.0-35.0) pg MCHC (31.0-37.0) g/dL RDW (11.5-15.5) % Plt Count (150-450) k/uL Neutrophils % % Lymphocytes % % Monocytes % % Eosinophils % % Basophils % % Neutrophils # (1.3-7.7) k/uL Lymphocytes # (1.0-4.8) k/uL Monocytes # (0-1.0) k/uL Eosinophils # (0-0.7) k/uL Basophils # (0-0.2) k/uL PT (9.0-12.0) sec INR (<1.2) APTT (22.0-30.0) sec Sodium (137-145) mmol/L Potassium (3.5-5.1) mmol/L Chloride (98-107) mmol/L Carbon Dioxide (22-30) mmol/L Anion Gap mmol/L BUN (9-20) mg/dL Creatinine (0.66-1.25) mg/dL Est GFR (CKD-EPI)AfAm (>60 ml/min/1.73 sqM) Est GFR (CKD-EPI)NonAf (>60 ml/min/1.73 sqM) Glucose (74-99) mg/dL Calcium (8.4-10.2) mg/dL Total Bilirubin (0.2-1.3) mg/dL AST (17-59) U/L ALT (21-72) U/L Alkaline Phosphatase (38-126) U/L Troponin I <0.012 (0.000-0.034) ng/mL Total Protein (6.3-8.2) g/dL Albumin (3.5-5.0) g/dL Amylase (30-110) U/L Lipase (23-300) U/L Urine Color Yellow Urine Appearance Clear (Clear) Urine pH 6.0 (5.0-8.0) Ur Specific [place] 1.011 (1.001-1.035) Urine Protein Negative (Negative) Urine Glucose (UA) Negative (Negative) Urine Ketones Negative (Negative) Urine Blood Trace H (Negative) Urine Nitrite Negative (Negative) Urine Bilirubin Negative (Negative) Urine Urobilinogen <2.0 (<2.0) mg/dL Ur Leukocyte Esterase Negative (Negative) Urine RBC 2 (0-5) /hpf Urine WBC 1 (0-5) /hpf Urine Mucus Rare H (None) /hpf 10/14/18 13:42 EKG performed at 1324 shows normal sinus rhythm, normal EKG. Ventricular rate of 73 bpm.. We'll 36 ms. QRS duration is 82 ms. QT QTc is 370/470 ms. - Radiology Data Radiology results: report reviewed Overall instructed bowel gas pattern. This x-rays negative for any acute critical primary process. Disposition Clinical Impression: Post-op pain Disposition: HOME SELF-CARE Condition: Good Instructions (If sedation given, give patient instructions): Abdominal Pain (ED) Additional Instructions: Patient is advised to is follow-up with your surgeon and primary care physician. Rest, remain hydrated. Return to the emergency department if any alarming signs or symptoms occur. Is patient prescribed a controlled substance at d/c from ED?: No Referrals: Aleida Guerrero MD [Primary Care Provider] - 1-2 days Time of Disposition: 16:55
[2018-10-14 13:59] LABS: Basophils # (A) 0.1 k/uL (0-0.2); Basophils % (A) 1 %; Eosinophils # (A) 0.2 k/uL (0-0.7); Eosinophils % (A) 2 %; HGB 13.8 gm/dL (13.0-17.5); Lymphocytes % (A) 28 %; MCH 26.8 pg (25.0-35.0); MCHC 32.9 g/dL (31.0-37.0); MCV 81.4 fL (80.0-100.0); Mean Platelet Volume 7.7; Monocytes # (A) 0.8 k/uL (0-1.0); Monocytes % (A) 7 %; Neutrophils # (A) 6.7 k/uL (1.3-7.7); Neutrophils % (A) 61 %; Platelet Count 306 k/uL (150-450); RBC 5.16 m/uL (4.30-5.90); RDW 14.8 % (11.5-15.5)
[2018-10-14 14:05] LABS: INR 0.9 (<1.2); Partial Thromboplastin Time 26.9 sec (22.0-30.0); Prothrombin Time 9.8 sec (9.0-12.0)
--- NOTE | 2018-10-14 14:07 | XR ---
EXAMINATION TYPE: XR chest 2V DATE OF EXAM: 10/14/2018 COMPARISON: Prior chest x-ray 10/07/2018 HISTORY: Abdominal pain, 2 days post abdominal surgery TECHNIQUE: Frontal and lateral views of the chest are obtained. FINDINGS: There is no focal air space opacity, pleural effusion, or pneumothorax seen. The cardiac silhouette size is within normal limits. The osseous structures are intact. IMPRESSION: No acute cardiopulmonary process.
--- NOTE | 2018-10-14 14:09 | XR ---
EXAMINATION TYPE: XR KUB DATE OF EXAM: 10/14/2018 COMPARISON: NONE HISTORY: Pain TECHNIQUE: Single supine KUB image of the abdomen is obtained FINDINGS: Small bowel demonstrates no evidence for dilatation or air fluid levels. Gas and fecal material is seen in non-distended colon. No convincing evidence for pneumoperitoneum. No unusual calcifications. The lung bases are clear. The osseous structures are intact. IMPRESSION: 1. Overall nonobstructive bowel gas pattern.
[2018-10-14 14:10] LABS: ALT 22 U/L (21-72); AST 29 U/L (17-59); African American GFR (CKD) >90 (>60 ml/min/1.73 sqM); Albumin 4.4 g/dL (3.5-5.0); Alkaline Phosphatase 79 U/L (38-126); Amylase 48 U/L (30-110); Anion Gap 9 mmol/L; Blood Urea Nitrogen 14 mg/dL (9-20); Calcium 8.9 mg/dL (8.4-10.2); Carbon Dioxide 28 mmol/L (22-30); Chloride 102 mmol/L (98-107); Glucose 100 mg/dL (74-99); Sodium 139 mmol/L (137-145); Total Bilirubin 0.4 mg/dL (0.2-1.3); Total Protein 7.2 g/dL (6.3-8.2)
[2018-10-14 15:30] LABS: Appearance,Urine Clear (Clear); Bilirubin,Urine Negative (Negative); Blood,Urine Trace (Negative); Color,Urine Yellow; Glucose,Urine (UA) Negative (Negative); Ketones,Urine Negative (Negative); Leukocyte Esterase,Urine Negative (Negative); Mucus,Urine Rare /hpf; Nitrite,Urine Negative (Negative); Protein,Urine Negative (Negative); RBC,Urine 2 /hpf (0-5); Specific Gravity,Urine 1.011 (1.001-1.035); Urobilinogen,Urine <2.0 mg/dL (<2.0); WBC,Urine 1 /hpf (0-5)
--- NOTE | 2018-10-14 16:19 | CT ---
EXAMINATION TYPE: CT abdomen pelvis w con DATE OF EXAM: 10/14/2018 COMPARISON: 10/07/2018 HISTORY: epigastric pain post bailey CT DLP: 2075.8 mGycm CONTRAST: CT scan of the abdomen and pelvis is performed without Oral Contrast and with IV Contrast, patient in jected with 100 mL of Isovue 300. FINDINGS: LUNG BASES-: No visible nodule. No infiltrate. LIVER/GB: Interval cholecystectomy. No evidence for fluid within the gallbladder fossa or pelvis. N o space occupying hepatic lesion. Biliary tree is of normal caliber. PANCREAS: No inflammation. No distinct mass. SPLEEN: No splenic enlargement. No lesion seen. ADRENALS: No nodule. No thickening. KIDNEYS/BLADDER: No hydronephrosis. No nephrolithiasis. No distinct renal mass. Urinary bladder g rossly unremarkable. BOWEL: Normal appendix. Stable appearing small bowel anastomosis. Small and large bowel are of normal caliber. GENITAL ORGANS: No gross abnormality. LYMPH NODES: No greater than 1cm abdominal or pelvic lymph nodes are appreciated. AORTA: No significant abnormality. OSSEOUS STRUCTURES: No significant abnormality is seen. OTHER: Vertically oriented midline scar noted with surrounding strandy attenuation and cutaneous thic kening may reflect cellulitis. I do not see evidence for drainable collection. There are several tiny foci of subcutaneous air noted which may reflect injection sites. Correlate clinically. There is no evidence for pneumoperitoneum or intra-abdominal abscess. IMPRESSION: 1. Interval change of cholecystectomy without CT evidence to suggest bile leak. 2. Chronic appearing subcutaneous strandy attenuation at a vertical midline scar line with mild skin thickening could reflect cellulitis. Correlate clinically.
[2018-10-14 16:20] VITALS: RESP 18
[2018-10-14 17:19] VITALS: BP 128/87; PULSE 89; TEMP 97.9
== END 2018-10-14 17:10 | disposition home or self-care (01) ==
LOC: EC 12:28
DX: G89.18 Other acute postprocedural pain (principal); R10.9 Unspecified abdominal pain; R20.2 Paresthesia of skin; E78.5 Hyperlipidemia, unspecified; I10 Essential (primary) hypertension; K21.9 Gastro-esophageal reflux disease without esophagitis; I25.119 Atherosclerotic heart disease of native coronary artery with unspecified angina pectoris; Z79.82 Long term (current) use of aspirin; Z79.899 Other long term (current) drug therapy; Z88.5 Allergy status to narcotic agent; Z88.8 Allergy status to other drugs, medicaments and biological substances; Z87.891 Personal history of nicotine dependence; Z90.49 Acquired absence of other specified parts of digestive tract
CPT/HCPCS: 99285; 96360; 96361 ×2; 36415; 93005; 80053; 82150; 83690; 84484; 85025; 85610; 85730; 81001; 71046; 74018; 74177; Q9967

== ENCOUNTER → 2019-07-22 | Outpatient (CLI) | payer OTHER ==
[2019-07-22 09:45] LABS: HCT 45.5 % (39.0-53.0); HGB 14.8 gm/dL (13.0-17.5); MCH 27.6 pg (25.0-35.0); MCHC 32.5 g/dL (31.0-37.0); MCV 84.8 fL (80.0-100.0); Mean Platelet Volume 8.2; Platelet Count 305 k/uL (150-450); RBC 5.37 m/uL (4.30-5.90)
[2019-07-22 15:32] LABS: Albumin 4.9 g/dL (3.80-4.90); Albumin/Globulin Ratio 2.04 (1.60-3.17); Anion Gap 11.3 mmol/L (4.00-12.00); BUN/Creat Ratio 10.83 Ratio (12.00-20.00); Calcium 9.6 mg/dL (8.7-10.3); Carbon Dioxide 31.7 mmol/L (21.6-31.8); Chol/HDL Ratio 4.26; Globulin 2.4 g/dL (1.6-3.3); LDL Cholesterol,Calculated 78.8 mg/dL (0.0-131.0); Non-African American GFR(CKD) 68.1 (60.0-200.0); Potassium 3.1 mmol/L (3.5-5.5); Total Bilirubin 0.4 mg/dL (0.2-1.2); Total Protein 7.3 g/dL (6.2-8.2); VLDL Calculation 45.2 mg/dL (5.00-40.00)
[2019-07-22 15:39] LABS: T4, Free (Free Thyroxine) 1.4 ng/dL (0.80-1.80)
== END | disposition home or self-care (01) ==
LOC: LABWHC1 09:23
PROVIDERS: ATTEND Internal Medicine
DX: I10 Essential (primary) hypertension (principal); R53.83 Other fatigue
CPT/HCPCS: 36415; 80053; 80061; 82607; 84439; 84443; 85027

== ENCOUNTER → 2019-07-31 | Outpatient (CLI) | payer OTHER | END | disposition home or self-care (01) | LOC: LABWHC1 08:26 | PROVIDERS: ATTEND Surgery | DX: U07.1 COVID-19 (principal) | CPT/HCPCS: 87635 ==

== ENCOUNTER 2019-08-02 08:48 | Day surgery (SDC) | payer OTHER ==
[2019-07-30 10:32] VITALS: BMI 43.8
[~2019-08-02 08:48] MED LIST changes: -Acetaminophen-Codeine 300-30mg TAB PO ONE; -BUPIVACAINE (PF) 0.5% 30 ML VIAL SQ ONE; -DEXAMETHASONE SOD PHOSPHATE 10 MG/ML 1 ML VIAL IV ONE; -GLYCOPYRROLATE 0.2 MG/ML 2 ML VIAL ONE; -HEPARIN SODIUM,PORCINE 5,000 UNIT/ML 1 ML VIAL SQ ONE; -HYDROmorphone (PF) 1 MG/ML ONE; -HYDROmorphone 1 MG/ML 1 ML SYRINGE IVP ONE; -KETOROLAC 30 MG/ML 1 ML VIAL ONE; +LACTATED RINGERS 1,000 ML IV SCH; +LIDOCAINE 1% (10MG/ML) FOR IV START INTRADERMA PRN; -LIDOCAINE 1% 20 ML VIAL (10MG/ML) FOR IV START INTRADERMA PRN; -LIDOCAINE 1% INJ 10MG/ML (20 ML MDV) ONE; -MIDAZOLAM 2 MG/2 ML VIAL ONE; -NEOSTIGMINE 1 MG/ML 10 ML VIAL ONE; -ONDANSETRON 4 MG/2 ML VIAL IVP ONE; -PROPOFOL 10 MG/ML 20 ML VIAL IV ONE; -ROCURONIUM BROMIDE 10 MG/ML 10 ML VIAL IV ONE; -SCOPOLAMINE 1.5MG/72HR PATCH TRANSDERM ONE; -SUCCINYLCHOLINE CHLORIDE 100 MG/5 ML SYR IV ONE; -ceFAZolin 3 GM in SODIUM CHLORIDE 0.9% 100 ML IVPB ONE; -fentaNYL (PF) 50 MCG/ML 2 ML AMP IV PRN; -fentaNYL (PF) 50 MCG/ML 2 ML AMP ONE
[2019-08-02 09:42] VITALS: RESP 17; TEMP 98.7
[2019-08-02] MEDS ORDERED: PROPOFOL 10 MG/ML 20 ML VIAL IV ONE (10:13)
--- NOTE | 2019-08-02 10:22 | P.GSHP ---
History of Present Illness H&P Date: 08/02/19 Chief Complaint: GERD This a 54-year-old male presents today for EGD. Patient had complaints of epigastric abdominal pain and GERD. Past Medical History Past Medical History: Chest Pain / Angina, COPD, CVA/TIA, GERD/Reflux, Hyperlipidemia, Hypertension, Osteoarthritis (OA) Additional Past Medical History / Comment(s): HX OF KIDNEY STONES, TIA. STATES HE HAS AN ANEURYSM ON THE HEART AND IT IS BEING MONITORED BY A SOCIAL SCIENCE MANAGER. History of Any Multi-Drug Resistant Organisms: None Reported Past Surgical History: Cholecystectomy, Hernia Repair Additional Past Surgical History / Comment(s): 06/08/18 INCARCERATED INCISIONAL HERNIA (2) THREE OTHER HERNIA SURGERY. SURGERY X4. Lithotripsy, Past Anesthesia/Blood Transfusion Reactions: No Reported Reaction Smoking Status: Former smoker - Past Family History Mother Family Medical History: Coronary Artery Disease (CAD), Diabetes Mellitus Father Family Medical History: CVA/TIA, Hypertension Medications and Allergies Home Medications Medication Instructions Recorded Confirmed Type Atorvastatin [Lipitor] 40 mg PO HS 04/15/18 07/30/19 History Metoprolol Succinate (ER) [Toprol 50 mg PO BID 04/15/18 07/30/19 History XL] Losartan Potassium 100 mg PO QAM 07/09/18 07/30/19 History amLODIPine [Norvasc] 10 mg PO QAM 07/09/18 07/30/19 History Aspirin [Adult Low Dose Aspirin EC] 81 mg PO DAILY 10/09/18 07/30/19 History Lansoprazole 30 mg PO BID 07/30/19 07/30/19 History Sucralfate [Carafate] 1 gm PO BID 07/30/19 07/30/19 History Allergies Allergy/AdvReac Type Severity Reaction Status Date / Time hydrocodone [From [place]] AdvReac Nausea, Verified 08/02/19 09:33 light headed ranitidine HCl [From Zantac] AdvReac Nausea & Verified 08/02/19 09:33 Vomiting Surgical - Exam Vital Signs Temp Pulse Resp BP Pulse Ox 98.7 F 98 17 181/86 98 08/02/19 09:41 08/02/19 09:41 08/02/19 09:41 08/02/19 09:41 08/02/19 09:41 - General well developed, well nourished, no distress - Eyes PERRL - ENT normal pinna - Neck no masses - Respiratory normal expansion - Cardiovascular Rhythm: regular - Abdomen Abdomen: soft, non tender Assessment and Plan Assessment: GERD, epigastric dull pain. We'll perform EGD.
[2019-08-02 10:51] VITALS: BP 100/60; PULSE 81
--- NOTE | 2019-08-02 11:04 | P.OP ---
Date of Procedure: 08/02/19 Preoperative Diagnosis: GERD Postoperative Diagnosis: Antral gastritis Esophagitis Small hiatal hernia Procedure(s) Performed: EGD Anesthesia: MAC Surgeon: Arthur Madrigal Pathology: other (Antrum, esophagus) Condition: stable Disposition: PACU Description of Procedure: The patient's placed on the endoscopy table in the lateral position. He received IV sedation. The gastroscope placed oropharynx passed in the esophagus into the stomach. Scope was then placed through the pylorus. The first and se cond portion of the duodenum appeared normal. Scope was then brought back the antrum this was mildly inflamed. A biopsies performed. The scope was unretroflexed and remainder of the stomach appeared normal. There was a small hiatal hernia. The GE junction was at 38 cm. The distal esophagus appeared mildly inflamed. A biopsies performed. The proximal esophagus appeared normal. Scope was withdrawn for patient.
== END 2019-08-02 11:09 | disposition home or self-care (01) ==
LOC: ORWHC2ENDO 08:48
PROVIDERS: ATTEND Surgery
DX: K29.50 Unspecified chronic gastritis without bleeding (principal); K21.0 Gastro-esophageal reflux disease with esophagitis; K44.9 Diaphragmatic hernia without obstruction or gangrene; I10 Essential (primary) hypertension; E78.5 Hyperlipidemia, unspecified; I25.10 Atherosclerotic heart disease of native coronary artery without angina pectoris; J44.9 Chronic obstructive pulmonary disease, unspecified; M19.90 Unspecified osteoarthritis, unspecified site; Z87.891 Personal history of nicotine dependence; Z79.82 Long term (current) use of aspirin; Z79.899 Other long term (current) drug therapy; Z86.73 Personal history of transient ischemic attack (TIA), and cerebral infarction without residual deficits; Z87.442 Personal history of urinary calculi; Z98.890 Other specified postprocedural states; Z88.5 Allergy status to narcotic agent; Z88.8 Allergy status to other drugs, medicaments and biological substances; Z82.49 Family history of ischemic heart disease and other diseases of the circulatory system; Z83.3 Family history of diabetes mellitus
CPT/HCPCS: 88305; 88342; 87635; 43239; J2704

== ENCOUNTER 2019-10-13 21:08 | Observation (INO) | payer OTHER ==
--- NOTE | 2019-10-13 21:20 | ED ---
Chest Pain HPI - General Chief Complaint: Chest Pain Stated Complaint: Chest Pain Time Seen by Provider: 10/13/19 21:18 Source: patient, RN notes reviewed, old records reviewed Mode of arrival: ambulatory - History of Present Illness Initial Comments: This is a 54-year-old male DF for evaluation patient Dese for evaluation regards to chest pain left-sided anterior chest pain no real radiation. Patient complaining of current chest pain. But is improved from when it started. Patient has no recent travel history sick contacts he does have a former smoking history, high blood pressure high cholesterol strong family history. Patient also suffered stroke in the past. Stress test 1 year ago which she believes is relatively normal. Pain started rafael CARTER Complaint: chest pain -: hour(s) Onset: during rest Pain Location: left chest Pain Radiation: none Severity: moderate Severity scale (1-10): 4 Quality: tightness, heaviness Consistency: constant (Although improving) Improves With: nothing Worsens With: nothing Anginal Symptoms: other (None) Other Symptoms: other (None) Treatments Prior to Arrival: none - Related Data Home Medications Medication Instructions Recorded Confirmed Metoprolol Succinate (ER) [Toprol 50 mg PO BID 04/15/18 10/13/19 XL] Aspirin [Adult Low Dose Aspirin EC] 81 mg PO DAILY 10/09/18 10/13/19 Lansoprazole 30 mg PO BID PRN 07/30/19 10/13/19 Sucralfate [Carafate] 1 gm PO BID 07/30/19 10/13/19 Atorvastatin [Lipitor] 40 mg PO HS 10/13/19 10/13/19 Losartan/Hydrochlorothiazide 1 tab PO DAILY 10/13/19 10/13/19 [Losartan-Hctz 100-25 mg Tab] Meloxicam [Mobic] 7.5 mg PO BID 10/13/19 10/13/19 Topiramate [Topamax] 25 mg PO BID 10/13/19 10/13/19 amLODIPine [Norvasc] 10 mg PO DAILY 10/13/19 10/13/19 tiZANidine [Zanaflex] 4 mg PO HS PRN 10/13/19 10/13/19 Allergies Allergy/AdvReac Type Severity Reaction Status Date / Time hydrocodone [From [place]] AdvReac Nausea, Verified 10/13/19 21:50 light headed ranitidine HCl [From Zantac] AdvReac Nausea & Verified 10/13/19 21:50 Vomiting Review of Systems ROS Statement: Those systems with pertinent positive or pertinent negative responses have been documented in the HPI. ROS Other: All systems not noted in ROS Statement are negative. EKG Findings - EKG Comments: EKG Findings:: EKG is sinus rhythm 78, GA 148, QRS 94 QTC 414 Past Medical History Past Medical History: Chest Pain / Angina, COPD, CVA/TIA, GERD/Reflux, Hyperlipidemia, Hypertension, Osteoarthritis (OA) Additional Past Medical History / Comment(s): HX OF KIDNEY STONES, TIA. STATES HE HAS AN ANEURYSM ON THE HEART AND IT IS BEING MONITORED BY A SURFACING MACHINE OPERATOR. History of Any Multi-Drug Resistant Organisms: None Reported Past Surgical History: Cholecystectomy, Hernia Repair Additional Past Surgical History / Comment(s): 06/08/18 INCARCERATED INCISIONAL HERNIA (2) THREE OTHER HERNIA SURGERY. SURGERY X4. Lithotripsy, Past Anesthesia/Blood Transfusion Reactions: No Reported Reaction Past Psychological History: No Psychological Hx Reported Smoking Status: Former smoker Past Alcohol Use History: None Reported Past Drug Use History: None Reported - Past Family History Mother Family Medical History: Coronary Artery Disease (CAD), Diabetes Mellitus Father Family Medical History: CVA/TIA, Hypertension General Exam General appearance: alert, in no apparent distress Head exam: Present: atraumatic, normocephalic, normal inspection Eye exam: Present: normal appearance, PERRL, EOMI. Absent: scleral icterus, conjunctival injection, periorbital swelling ENT exam: Present: normal exam, mucous membranes moist Neck exam: Present: normal inspection. Absent: tenderness, meningismus, lymphadenopathy Respiratory exam: Present: normal lung sounds bilaterally. Absent: respiratory distress, wheezes, rales, rhonchi, stridor Cardiovascular Exam: Present: regular rate, normal rhythm, normal heart sounds. Absent: systolic murmur, diastolic murmur, rubs, gallop, clicks GI/Abdominal exam: Present: soft, normal bowel sounds. Absent: distended, tenderness, guarding, rebound, rigid Extremities exam: Present: normal inspection, full ROM, normal capillary refill. Absent: tenderness, pedal edema, joint swelling, calf tenderness Back exam: Present: normal inspection Neurological exam: Present: alert, oriented X3, CN II-XII intact Psychiatric exam: Present: normal affect, normal mood Skin exam: Present: warm, dry, intact, normal color. Absent: rash Course Vital Signs 10/13/19 21:11 Temperature 97.9 F Pulse Rate 80 Respiratory 18 Rate Blood Pressure 155/92 O2 Sat by Pulse 99 Oximetry - Reevaluation(s) Reevaluation #1: 10/13/19 22:29 Medical records reviewed Reevaluation #2: 10/13/19 22:29 Patient continues to have chest pain here in the ER Chest Pain MDM - MDM 50 more 4-year-old male DF for eval to chest pain today. Patient has significant typical left sided heaviness in chest pain with no current shortness of breath or sweating, patient will be admitted for cardiac observation Critical Care Time Critical Care Time: Yes Total Critical Care Time: 31 Disposition Clinical Impression: Chest pain, atypical, Chest pain Disposition: ADMITTED IP TO THIS [facility] Condition: Undetermined Instructions (If sedation given, give patient instructions): Chest Pain (ED) Is patient prescribed a controlled substance at d/c from ED?: No Referrals: Aleida Guerrero MD [Primary Care Provider] - 1-2 days
[2019-10-13 21:43] LABS: Basophils # (A) 0.1 k/uL (0-0.2); Basophils % (A) 1 %; Eosinophils # (A) 0.3 k/uL (0-0.7); Eosinophils % (A) 3 %; HGB 14.6 gm/dL (13.0-17.5); Lymphocytes # (A) 2.7 k/uL (1.0-4.8); Lymphocytes % (A) 33 %; MCH 29.4 pg (25.0-35.0); MCHC 34.9 g/dL (31.0-37.0); MCV 84.4 fL (80.0-100.0); Mean Platelet Volume 8.3; Monocytes # (A) 0.5 k/uL (0-1.0); Monocytes % (A) 6 %; Neutrophils # (A) 4.4 k/uL (1.3-7.7); Neutrophils % (A) 54 %; Platelet Count 275 k/uL (150-450); RBC 4.98 m/uL (4.30-5.90); RDW 13.8 % (11.5-15.5); WBC 8.2 k/uL (3.8-10.6)
--- NOTE | 2019-10-13 21:48 | XR ---
EXAMINATION TYPE: XR chest 2V DATE OF EXAM: 10/13/2019 COMPARISON: 10/14/2018 HISTORY: Shortness of breath TECHNIQUE: Frontal and lateral views of the chest are obtained. FINDINGS: Scattered senescent parenchymal changes noted. No evidence for infiltrate. No evidence for atelectasis. Heart size is stable. Mediastinal structures are stable and grossly unremarkable. No evidence for hilar prominence. Degenerative changes dorsal spine. IMPRESSION: 1. No evidence for acute pulmonary disease.
[2019-10-13 21:57] LABS: INR 0.9 (<1.2); Partial Thromboplastin Time 26.6 sec (22.0-30.0); Prothrombin Time 9.4 sec (9.0-12.0)
[2019-10-13 22:00] LABS: ALT 27 U/L (4-49); AST 30 U/L (17-59); African American GFR (CKD) >90 (>60 ml/min/1.73 sqM); Albumin 4.8 g/dL (3.5-5.0); Alkaline Phosphatase 93 U/L (38-126); Anion Gap 14 mmol/L; Blood Urea Nitrogen 18 mg/dL (9-20); Calcium 9.8 mg/dL (8.4-10.2); Carbon Dioxide 26 mmol/L (22-30); Chloride 99 mmol/L (98-107); Glucose 150 mg/dL (74-99); Magnesium 1.9 mg/dL (1.6-2.3); Non-African American GFR(CKD) 80 (>60 ml/min/1.73 sqM); Potassium 3.4 mmol/L (3.5-5.1); Sodium 139 mmol/L (137-145); Total Bilirubin 0.6 mg/dL (0.2-1.3)
[2019-10-13] MEDS ORDERED: ASPIRIN 81 MG PO STA (22:31)
[2019-10-13] MEDS ORDERED: NITROGLYCERIN SL TABS 0.4 MG TAB SUBLINGUAL PRN (22:31)
[2019-10-13] MEDS ORDERED: HEPARIN SODIUM,PORCINE 5,000 UNIT/ML 1 ML VIAL IV PRN (22:31)
[2019-10-13] MEDS ORDERED: HEPARIN SODIUM,PORCINE 5,000 UNIT/ML 1 ML VIAL IV ONE (22:31)
[2019-10-13] MEDS ORDERED: HEPARIN SOD,PORK IN 0.45% NACL 25,000 UNIT in 0.45% NACL 1 250ML.BAG IV SCH (22:45)
[2019-10-14 06:09] LABS: Cholesterol 182 mg/dL (<200); HDL Cholesterol 34 mg/dL (40-60); LDL Cholesterol,Calculated 92 mg/dL (0-99); Triglycerides 278 mg/dL (<150)
[2019-10-14 08:11] VITALS: BP 125/80; PULSE 66; RESP 16; TEMP 97.7
[2019-10-14] MEDS ORDERED: DOBUTamine DRIP for NUC MED 500 MG in DEXTROSE/WATER 1 250ML.BAG IV ONE (08:48)
[2019-10-14] MEDS ORDERED: METOPROLOL TARTRATE 25 MG TAB PO SCH (09:00)
[2019-10-14] MEDS ORDERED: amLODIPine 10 MG TAB PO SCH (09:00)
[2019-10-14] MEDS ORDERED: METOPROLOL SUCCINATE (ER) 50 MG TAB.ER.24H PO SCH (09:00)
[2019-10-14] MEDS ORDERED: ATORVASTATIN 80 MG TAB PO SCH (09:00)
[2019-10-14] MEDS ORDERED: ASPIRIN 81 MG PO SCH (09:00)
[2019-10-14] MEDS ORDERED: LOSARTAN-HCTZ 50-12.5 MG 1 EACH TAB PO SCH (09:00)
[2019-10-14] MEDS ORDERED: ASPIRIN 325 MG TAB PO SCH (09:00)
--- NOTE | 2019-10-14 10:39 | CONS ---
CONSULTATION ATTENDING PHYSICIAN: Dr. Guerrero. HISTORY OF PRESENT ILLNESS: Mr. Rhodes is a 54-year-old male with known history of hypertension, hyperlipidemia, who presented with symptoms of headache, chest discomfort and dyspnea. The discomfort occurred at rest, was not activity related, has some positional pattern. He denies any palpitation. No syncope. He has some peripheral edema that is chronic. He has no clear PND or orthopnea. The patient has a prior history of stroke. He has no documented history of obstructive coronary disease. His systolic function in the past was normal. His coronary risk factors are remarkable for hypertension hyperlipidemia. He is a nondiabetic and he has not been smoking. He has a history of thoracic aortic aneurysm that has been stable. MEDICATION: At home included Zanaflex, Norvasc 10 mg daily, Topamax, Carafate, metoprolol succinate 50 mg twice a day, losartan HCT 100/25 mg daily, Protonix, Lipitor 40 mg daily, aspirin. REVIEW OF SYSTEMS: RESPIRATORY SYSTEM: No history of documented asthma or emphysema. He has some dyspnea on exertion. GI SYSTEM: No recent GI bleeding. No peptic ulcer disease. He has some reflux. SYSTEM: No dysuria or hematuria. NERVOUS SYSTEM: He had a prior history of stroke. PHYSICAL EXAMINATION: A 54-year-old male, alert, oriented, in no apparent distress. Blood pressure running in the 120s to 140s with a heart rate in 60s to 70s. HEAD: Normocephalic. Eyes sclerae anicteric. NECK: Good carotid upstroke. No bruit. No jugular venous distention. LUNGS: Clear to auscultation. HEART: Regular rate and rhythm S1, S2, no S3 with systolic ejection murmur heard at the base, ejection type. No diastolic murmur, no rub. ABDOMEN: Soft, nontender, positive bowel sounds. No organomegaly. Obese. EXTREMITIES: +1 edema bilaterally. LAB DATA: Revealed troponin less than 0.012 for 3 samples. Cholesterol 182, LDL of 92. BUN and creatinine 18 and 1.06. Potassium 3.4, hemoglobin 14.6. IMAGING: EKG revealed a sinus mechanism, normal axis and intervals with minor nonspecific ST-T wave changes. Chest x-ray shows no acute infiltrate. IMPRESSION: 1. Chest discomfort with symptoms of headache and dyspnea of unclear etiology. No evidence for acute coronary syndrome. 2. History of hypertension. 3. Hyperlipidemia. 4. Prior history of a stroke. RECOMMENDATION: I will stop his heparin. I will proceed with a dobutamine stress echocardiogram and a transthoracic echo and depending on those findings, further recommendation will be made. The rational behind the plan was discussed with the patient who is in full understanding and agreement. Thank you for this consult. Will follow with you. ESTHER / EVARISTO: [id number] /
--- NOTE | 2019-10-14 13:08 | P.HPIM ---
History of Present Illness Diagnoses: Chest pain, cardiac causes ruled out Hypertension Hyperlipidemia Good COPD, not in activation History of CVA/TIA Primary osteoarthritis History of kidney stone Hospital course: This is a pleasant 54 years old male with past medical history of hypertension, hyperlipidemia, GERD, COPD, CVA/TIA, osteoarthritis, kidney stone vital signs stable, patient presents because of chest pain for 3 days duration, central constricted on the left side with making consents I came to emergency room, states his pain is about 5-6/10 in severity but now is resolved and gone. Her flexible sigmoidoscopy wheezing at that time no dyspnea or coughing, no palpitation or dizziness, no change in urine or bowel habits. No fever 80 has smoking alcohol or illicit tracts labs including CBC and BMP were unremarkable, liver enzymes not elevated, INR 0.9, serial troponins are negative at less than 0.012 Chest x-ray: No acute process EKG showing no ST T changes Patient has been evaluated by pie chef who recommended stress test, primary results came back negative as per pie chef who cleared him for discharge Problems and management plan were discussed with the patient and he verbalized understanding and acceptance Patient was found stable and can be discharged home however he needs follow-up as an outpatient. Patient was instructed to follow up with PCP Dr. Leung within one week and patient agrees. Patient was instructed to follow up with Dr. Sanders his pie chef in 2 weeks. Patient agrees to call and make his is on appointment Review of systems CONSTITUTIONAL: No fever, no malaise, no fatigue. HEENT: No recent visual problems or hearing problems. Denied any sore throat. CARDIOVASCULAR: No orthopnea, PND, no palpitations, no syncope. PULMONARY: No shortness of breath, no cough, no hemoptysis. GASTROINTESTINAL: No diarrhea, no nausea, no vomiting, no abdominal pain. Normoactive bowel sounds. NEUROLOGICAL: No headaches, no weakness, no numbness. HEMATOLOGICAL: Denies any bleeding or petechiae. GENITOURINARY: Denies any burning micturition, frequency, or urgency. MUSCULOSKELETAL/RHEUMATOLOGICAL: Denies any joint pain, swelling, or any muscle pain. ENDOCRINE: Denies any polyuria or polydipsia. Physical exam Gen: patient is a AAOx3, no distress CVS: S1-S2, RRR, no murmur Lungs: B/L CTA, no wheezing Abdomen: soft, no distention, no tenderness, positive bowel sounds Extremity: no leg edema or induration Time spent more than 35 minutes Past Medical History Past Medical History: Chest Pain / Angina, COPD, CVA/TIA, GERD/Reflux, Hyperlipidemia, Hypertension, Osteoarthritis (OA) Additional Past Medical History / Comment(s): HX OF KIDNEY STONES, TIA. STATES HE HAS AN ANEURYSM ON THE HEART AND IT IS BEING MONITORED BY A GLOBAL SUPPLY CHAIN VICE PRESIDENT. History of Any Multi-Drug Resistant Organisms: None Reported Past Surgical History: Cholecystectomy, Hernia Repair Additional Past Surgical History / Comment(s): 06/08/18 INCARCERATED INCISIONAL HERNIA (2) THREE OTHER HERNIA SURGERY. SURGERY X4. Lithotripsy, Past Anesthesia/Blood Transfusion Reactions: No Reported Reaction Past Psychological History: No Psychological Hx Reported Smoking Status: Former smoker Past Alcohol Use History: None Reported Additional Past Alcohol Use History / Comment(s): STARTED SMOKING SMOKING AT AGE 12 QUIT AT JAN 2018 SMOKED 1PPD. Past Drug Use History: None Reported Additional Drug Use History / Comment(s): . - Past Family History Mother Family Medical History: Coronary Artery Disease (CAD), Diabetes Mellitus Father Family Medical History: CVA/TIA, Hypertension Medications and Allergies Home Medications Medication Instructions Recorded Confirmed Type Metoprolol Succinate (ER) [Toprol 50 mg PO BID 04/15/18 10/13/19 History XL] Aspirin [Adult Low Dose Aspirin EC] 81 mg PO DAILY 10/09/18 10/13/19 History Lansoprazole 30 mg PO BID PRN 07/30/19 10/13/19 History Sucralfate [Carafate] 1 gm PO BID 07/30/19 10/13/19 History Atorvastatin [Lipitor] 40 mg PO HS 10/13/19 10/13/19 History Losartan/Hydrochlorothiazide 1 tab PO DAILY 10/13/19 10/13/19 History [Losartan-Hctz 100-25 mg Tab] Topiramate [Topamax] 25 mg PO BID 10/13/19 10/13/19 History amLODIPine [Norvasc] 10 mg PO DAILY 10/13/19 10/13/19 History tiZANidine [Zanaflex] 4 mg PO HS PRN 10/13/19 10/13/19 History Allergies Allergy/AdvReac Type Severity Reaction Status Date / Time hydrocodone [From [place]] AdvReac Nausea, Verified 10/13/19 21:50 light headed ranitidine HCl [From Zantac] AdvReac Nausea & Verified 10/13/19 21:50 Vomiting Physical Exam Vitals: Vital Signs Temp Pulse Pulse Resp BP BP Pulse Ox 10/14/19 08:10 97.7 F 66 16 125/80 98 10/14/19 03:00 98.1 F 62 17 98/60 98 10/14/19 01:04 97.9 F 73 20 146/79 99 10/14/19 00:59 18 10/13/19 21:11 97.9 F 80 18 155/92 99 Intake and Output 10/13/19 10/14/19 10/14/19 22:59 06:59 14:59 Intake Total 171.863 Balance 171.863 Intake: Intake, IV Titration 71.863 Amount Heparin Sod,Pork in 0.45% 71.863 NaCl 25,000 unit In 0.45 % NaCl 1 250ml.bag @ 8 UNITS/KG/HR 9.435 mls/hr IV .Q24H YOVANA Rx#: [id number] Oral 100 Other: Voiding Method Toilet # Voids 1 Weight 117.934 kg 117.934 kg Results CBC & Chem 7: 10/13/19 21:31 10/13/19 21:31 Labs: Abnormal Lab Results - Last 24 Hours (Table) 10/13/19 10/14/19 10/14/19 Range/Units 21:31 05:01 05:01 APTT 34.5 H (22.0-30.0) sec Potassium 3.4 L (3.5-5.1) mmol/L Glucose 150 H (74-99) mg/dL Triglycerides 278 H (<150) mg/dL HDL Cholesterol 34 L (40-60) mg/dL Thrombosis Risk Factor Assmnt - Choose All That Apply Each Factor Represents 1 point: Abnormal pulmonary function (COPD), Age 41-60 years, Obesity (BMI >25) Thrombosis Risk Factor Assessment Total Risk Factor Score: 3 Thrombosis Risk Factor Assessment Level: Moderate Risk
--- NOTE | 2019-10-14 13:15 | ECHOS ---
STRESS ECHOCARDIOGRAM LUMASON: Vial INDICATIONS: Chest pain. MEDICATIONS: BASELINE HEART RATE: 78 BASELINE BLOOD PRESSURE: 136/84 MAXIMUM HEART RATE: 145 MAXIMUM BLOOD PRESSURE: 200/54 85% MPHR: 141 100% MPHR: 166 METS: MAXIMUM STAGE REACHED: TOTAL EXERCISE TIME: CLINICAL INFORMATION: Baseline rhythm is sinus mechanism, rate of 78, normal axis and intervals, poor R wave progression. Baseline blood pressure 136/84 mmHg. Patient received infusion of dobutamine per protocol, peak rate 145 beats per minute. Peak blood pressure 200/44 mmHg. Electrocardiograph monitoring revealed no evidence of diagnostic ischemic ST deviation. Occasional PVCs were noted. FINDINGS: Baseline echocardiogram revealed normal wall thickness and motion at peak infusion. There was normal wall thickening and motion without any hypokinesis or dyskinesis. CONCLUSION: 1. Normal electrocardiograph response to exercise with occasional premature ventricular contractions. 2. Normal stress echocardiogram with no evidence of stress induced ischemia. MMODL / IJN: [id number] /
[2019-10-14] MEDS ORDERED: ATORVASTATIN 40 MG TAB PO SCH (21:00)
--- NOTE | 2019-10-15 09:43 | ECHOF ---
Referral Reason:cp MEASUREMENTS -------- HEIGHT: 170.2 cm WEIGHT: 117.9 kg BP: 125/80 RVIDd: 3.7 cm (< 3.3) IVSd: 1.4 cm (0.6 - 1.1) LVIDd: 3.8 cm (3.9 - 5.3) LVPWd: 1.3 cm (0.6 - 1.1) IVSs: 1.9 cm LVIDs: 2.6 cm LVPWs: 1.7 cm LAESV Index (A-L): 25.71 ml/m Ao Diam: 2.9 cm (2.0 - 3.7) AV Cusp: 2.1 cm (1.5 - 2.6) MV EXCURSION: 20.468 mm (> 18.000) MV EF SLOPE: 66 mm/s (70 - 150) EPSS: 0.2 cm MV E Sulaiman: 0.95 m/s MV DecT: 166 ms MV A Sulaiman: 1.00 m/s MV E/A Ratio: 0.95 RAP: 5.00 mmHg RVSP: 20.07 mmHg FINDINGS -------- Sinus rhythm. This was a technically difficult study with suboptimal views. The left ventricular size is normal. There is moderate concentric left ventricular hypertrophy. O verall left ventricular systolic function is normal with, an EF between 55 - 60 %. The diastolic fi lling pattern is normal for the age of the patient {E/E'}. The right ventricle is mild to moderately enlarged. Normal LA size by volume 22+/-6 ml/m2. The right atrial size is normal. 5.0mg of Lumason was utilized for enhancement of images Interatrial and interventricular septum intact. The aortic valve is trileaflet, and appears structurally normal. No aortic stenosis or regurgitation. The mitral valve is normal. There is trace mitral regurgitation. Mild tricuspid regurgitation present. Right ventricular systolic pressure is normal at < 35 mmHg. The right ventricular systolic pressure, as measured by Doppler, is 20.07mmHg. The pulmonic valve was not well visualized. There is no pulmonic regurgitation present. The aortic root size is normal. IVC Not well visulized. Echo free space may represent effusion or a pericardial fat pad. CONCLUSIONS -------- 1. There is moderate concentric left ventricular hypertrophy. 2. Overall left ventricular systolic function is normal with, an EF between 55 - 60 %. 3. The diastolic filling pattern is normal for the age of the patient {E/E'} 4. The right ventricle is mild to moderately enlarged. 5. Normal LA size by volume 22+/-6 ml/m2. 6. 5.0mg of Lumason was utilized for enhancement of images 7. The aortic valve is trileaflet, and appears structurally normal. No aortic stenosis or regurgitati on. 8. There is trace mitral regurgitation. 9. Mild tricuspid regurgitation present. 10. Echo free space may represent effusion or a pericardial fat pad. ENGINEER [employer]: Monie Lu RDCS
== END 2019-10-14 14:30 | disposition home or self-care (01) ==
LOC: EC 21:08 → 3NCARDOBS 22:31
PROVIDERS: ADMIT Hospitalist; ATTEND Hospitalist
DX: R07.89 Other chest pain (principal); R60.0 Localized edema; I10 Essential (primary) hypertension; E78.00 Pure hypercholesterolemia, unspecified; Z87.891 Personal history of nicotine dependence; Z86.73 Personal history of transient ischemic attack (TIA), and cerebral infarction without residual deficits; J44.9 Chronic obstructive pulmonary disease, unspecified; K21.9 Gastro-esophageal reflux disease without esophagitis; E78.5 Hyperlipidemia, unspecified; M19.91 Primary osteoarthritis, unspecified site; M19.90 Unspecified osteoarthritis, unspecified site; Z87.442 Personal history of urinary calculi; I25.3 Aneurysm of heart; Z90.49 Acquired absence of other specified parts of digestive tract; Z98.890 Other specified postprocedural states; Z82.49 Family history of ischemic heart disease and other diseases of the circulatory system; Z83.3 Family history of diabetes mellitus; Z79.1 Long term (current) use of non-steroidal anti-inflammatories (NSAID); Z79.82 Long term (current) use of aspirin; Z79.899 Other long term (current) drug therapy; Z88.5 Allergy status to narcotic agent; Z88.8 Allergy status to other drugs, medicaments and biological substances
CPT/HCPCS: 93005 ×2; 96366; 96376; 96365; 99291; 36415; 93351; 83880; 80061; 80053; 83690; 83735; 84484 ×2; 85025; 85610; 85730 ×2; 71046; G0378 ×2; C8929; J1250; J1644 ×2; Q9950; 93306

== ENCOUNTER 2020-02-14 14:34 | Observation (INO) | payer OTHER ==
[2020-02-14 15:26] LABS: Basophils # (A) 0.1 k/uL (0-0.2); Basophils % (A) 1 %; Eosinophils # (A) 0.1 k/uL (0-0.7); Eosinophils % (A) 1 %; HCT 44.2 % (39.0-53.0); HGB 15.2 gm/dL (13.0-17.5); Lymphocytes # (A) 2.3 k/uL (1.0-4.8); Lymphocytes % (A) 25 %; MCH 29.2 pg (25.0-35.0); MCHC 34.5 g/dL (31.0-37.0); MCV 84.6 fL (80.0-100.0); Mean Platelet Volume 8.4; Monocytes # (A) 0.7 k/uL (0-1.0); Monocytes % (A) 7 %; Neutrophils # (A) 5.7 k/uL (1.3-7.7); Neutrophils % (A) 63 %; Platelet Count 291 k/uL (150-450); RBC 5.23 m/uL (4.30-5.90); RDW 13.4 % (11.5-15.5); WBC 9.1 k/uL (3.8-10.6)
[2020-02-14 15:36] LABS: INR 0.9 (<1.2); Partial Thromboplastin Time 25.6 sec (22.0-30.0); Prothrombin Time 9.7 sec (9.0-12.0)
[2020-02-14 15:42] LABS: Albumin 4.8 g/dL (3.5-5.0); Calcium 9.8 mg/dL (8.4-10.2); Magnesium 1.8 mg/dL (1.6-2.3); Potassium 3.8 mmol/L (3.5-5.1); Total Bilirubin 0.7 mg/dL (0.2-1.3); Total Protein 8.3 g/dL (6.3-8.2)
--- NOTE | 2020-02-14 16:00 | CT ---
EXAMINATION TYPE: CT angio thor/abd pel aorta DATE OF EXAM: 02/14/2020 COMPARISON: 07/09/2018 HISTORY: chest and upper back pain with history of aneurysm CT DLP: 2663.9 mGycm CONTRAST: CTA thoracic and abdominal aorta with 3-D reconstruction is performed and without and with IV Contras t, patient injected with 100 mL of Isovue 370. Contrast CTA of the thoracic and abdominal aorta was performed from the lung apex through the base of the pelvis. 3-D reconstruction imaging obtained at a separate workstation. CT Chest: THORACIC AORTA: Ascending aortic thoracic aneurysm measuring 5.0 cm. The remainder of the thoracic a sheeba is of normal caliber. No dissection or mediastinal hematoma. Mild atheromatous changes are seen . LUNGS: The lungs are clear and free of infiltrate or atelectasis. No pulmonary nodule or mass is det ected. No pleural effusion or CT evidence of interstitial lung disease. MEDIASTINUM: The heart is not enlarged. No evidence for mediastinal mass or adenopathy. HILAR STRUCTURES: No evidence for mass. No hilar adenopathy is appreciated. OTHER: No significant abnormality. CONTRAST CT ABDOMEN AND PELVIS ABDOMINAL AORTA: No evidence for abdominal aortic aneurysm. No dissection. Iliac vessels are symmet erika and patent. LIVER/GB- No significant abnormality is seen. The gallbladder is surgically absent. PANCREAS- No significant abnormality is seen. SPLEEN- No significant abnormality is seen. ADRENALS- No significant abnormality is seen. KIDNEYS/BLADDER- No significant abnormality is seen. BOWEL- No Significant abnormality GENITAL ORGANS: No gross abnormality seen. LYMPH NODES- No greater than 1cm abdominal or pelvic lymph nodes are appreciated. OSSEOUS STRUCTURES- No significant abnormality is seen. OTHER- No significant abnormality is seen. IMPRESSION- 1. Ascending thoracic aortic aneurysm. Abdominal aorta is of normal caliber. No complicating factors noted.
[2020-02-14] MEDS ORDERED: NALOXONE 0.4 MG/ML 1 ML VIAL IV PRN (16:43)
[2020-02-14] MEDS ORDERED: MORPHINE SULFATE 4 MG/ML SYRINGE IV PRN (16:43)
[2020-02-14] MEDS ORDERED: ACETAMINOPHEN TAB 325 MG TAB PO PRN (16:43)
--- NOTE | 2020-02-14 16:50 | ED ---
General Adult HPI - General Chief complaint: Chest Pain Stated complaint: Chest Pain Time Seen by Provider: 02/14/20 14:42 Source: patient, RN notes reviewed, old records reviewed Mode of arrival: wheelchair Limitations: no limitations - History of Present Illness Initial comments: 54-year-old male presenting for evaluation of chest pain over the past several days. Patient has a known history of a thoracic aortic aneurysm. He states he's had this evaluated within the past one year. He didn't describes a dull intermittent substernal chest pain. He states that time distal travel to his back. He denies abdominal pain. Denies diaphoresis nausea vomiting. He has no known history of coronary artery disease. - Related Data Home Medications Medication Instructions Recorded Confirmed Metoprolol Succinate (ER) [Toprol 50 mg PO BID 04/15/18 02/14/20 XL] Aspirin [Adult Low Dose Aspirin EC] 81 mg PO DAILY 10/09/18 02/14/20 Sucralfate [Carafate] 1 gm PO BID 07/30/19 02/14/20 Atorvastatin [Lipitor] 40 mg PO HS 10/13/19 02/14/20 Losartan/Hydrochlorothiazide 1 tab PO DAILY 10/13/19 02/14/20 [Losartan-Hctz 100-25 mg Tab] Topiramate [Topamax] 25 mg PO BID 10/13/19 02/14/20 amLODIPine [Norvasc] 10 mg PO DAILY 10/13/19 02/14/20 tiZANidine [Zanaflex] 4 mg PO HS PRN 10/13/19 02/14/20 Acetaminophen [Tylenol Extra 500 mg PO BID 02/14/20 02/14/20 Strength] Albuterol Sulfate [Albuterol 1 puff PO RT-BID PRN 02/14/20 02/14/20 Sulfate Hfa] Furosemide [Lasix] 20 mg PO DAILY 02/14/20 02/14/20 Meloxicam 7.5 mg PO BID 02/14/20 02/14/20 Simethicone [Gas-X] 125 mg PO BID 02/14/20 02/14/20 Allergies Allergy/AdvReac Type Severity Reaction Status Date / Time hydrocodone [From [place]] AdvReac Nausea, Verified 02/14/20 16:06 light headed ranitidine HCl [From Zantac] AdvReac Nausea & Verified 02/14/20 16:06 Vomiting Review of Systems ROS Statement: Those systems with pertinent positive or pertinent negative responses have been documented in the HPI. ROS Other: All systems not noted in ROS Statement are negative. Past Medical History Past Medical History: Chest Pain / Angina, COPD, CVA/TIA, GERD/Reflux, Hyperlipi demia, Hypertension, Osteoarthritis (OA) Additional Past Medical History / Comment(s): HX OF KIDNEY STONES, TIA. STATES HE HAS AN ANEURYSM ON THE HEART AND IT IS BEING MONITORED BY A TRENCHING MACHINE OPERATOR. History of Any Multi-Drug Resistant Organisms: None Reported Past Surgical History: Cholecystectomy, Hernia Repair Additional Past Surgical History / Comment(s): 06/08/18 INCARCERATED INCISIONAL HERNIA (2) THREE OTHER HERNIA SURGERY. SURGERY X4. Lithotripsy, Past Anesthesia/Blood Transfusion Reactions: No Reported Reaction Past Psychological History: No Psychological Hx Reported Smoking Status: Former smoker Past Alcohol Use History: None Reported Past Drug Use History: None Reported - Past Family History Mother Family Medical History: Coronary Artery Disease (CAD), Diabetes Mellitus Father Family Medical History: CVA/TIA, Hypertension General Exam Limitations: no limitations General appearance: alert, in no apparent distress Head exam: Present: atraumatic, normocephalic Eye exam: Present: normal appearance, PERRL ENT exam: Present: normal exam Neck exam: Present: normal inspection. Absent: tenderness Respiratory exam: Present: normal lung sounds bilaterally. Absent: respiratory distress, wheezes Cardiovascular Exam: Present: regular rate, normal rhythm, systolic murmur GI/Abdominal exam: Present: soft. Absent: distended, tenderness Extremities exam: Present: normal inspection, normal capillary refill Neurological exam: Present: alert, oriented X3, CN II-XII intact. Absent: motor sensory deficit Psychiatric exam: Present: normal affect, normal mood Skin exam: Present: warm, dry, intact. Absent: cyanosis, diaphoretic Course Vital Signs 02/14/20 02/14/20 14:39 16:21 Temperature 97.7 F Pulse Rate 88 68 Respiratory 18 18 Rate Blood Pressure 150/95 102/57 O2 Sat by Pulse 97 98 Oximetry EKG Findings - EKG Comments: EKG Findings:: EKG: Normal sinus rhythm, rate of 74, P-R is 148, QRS duration 92, QTC 401, no ST segment elevation. Medical Decision Making - Medical Decision Making 54-year-old male presenting with chest pain over the past several days. Patient well-appearing with stable vitals. EKG sinus rhythm without ST segment elevation. CT angiography is ordered to evaluate his aneurysm. This shows a 5.0 cm ascending thoracic aneurysm. Records will be obtained from the [facility] regarding the previous imaging of his thoracic aortic aneurysm. These results are not available at the time of this dictation. Patient has a normal CBC, normal CMP, negative initial troponin. She will be admitted, case has been discussed with Dr. Gonzalez. Both cardiology and cardiothoracic surgery had been placed on consult. - Lab Data Result diagrams: 02/14/20 15:07 02/14/20 15:07 Lab Results 02/14/20 02/14/20 02/14/20 Range/Units 15:07 15:07 15:07 WBC 9.1 (3.8-10.6) k/uL RBC 5.23 (4.30-5.90) m/uL Hgb 15.2 (13.0-17.5) gm/dL Hct 44.2 (39.0-53.0) % MCV 84.6 (80.0-100.0) fL MCH 29.2 (25.0-35.0) pg MCHC 34.5 (31.0-37.0) g/dL RDW 13.4 (11.5-15.5) % Plt Count 291 (150-450) k/uL MPV 8.4 Neutrophils % 63 % Lymphocytes % 25 % Monocytes % 7 % Eosinophils % 1 % Basophils % 1 % Neutrophils # 5.7 (1.3-7.7) k/uL Lymphocytes # 2.3 (1.0-4.8) k/uL Monocytes # 0.7 (0-1.0) k/uL Eosinophils # 0.1 (0-0.7) k/uL Basophils # 0.1 (0-0.2) k/uL PT 9.7 (9.0-12.0) sec INR 0.9 (<1.2) APTT 25.6 (22.0-30.0) sec Sodium 137 (137-145) mmol/L Potassium 3.8 (3.5-5.1) mmol/L Chloride 100 (98-107) mmol/L Carbon Dioxide 26 (22-30) mmol/L Anion Gap 11 mmol/L BUN 16 (9-20) mg/dL Creatinine 1.46 H (0.66-1.25) mg/dL Est GFR (CKD-EPI)AfAm 62 (>60 ml/min/1.73 sqM) Est GFR (CKD-EPI)NonAf 54 (>60 ml/min/1.73 sqM) Glucose 105 H (74-99) mg/dL Calcium 9.8 (8.4-10.2) mg/dL Magnesium 1.8 (1.6-2.3) mg/dL Total Bilirubin 0.7 (0.2-1.3) mg/dL AST 28 (17-59) U/L ALT 26 (4-49) U/L Alkaline Phosphatase 100 (38-126) U/L Troponin I (0.000-0.034) ng/mL NT-Pro-B Natriuret Pep pg/mL Total Protein 8.3 H (6.3-8.2) g/dL Albumin 4.8 (3.5-5.0) g/dL Lipase 42 (23-300) U/L 02/14/20 02/14/20 Range/Units 15:07 15:07 WBC (3.8-10.6) k/uL RBC (4.30-5.90) m/uL Hgb (13.0-17.5) gm/dL Hct (39.0-53.0) % MCV (80.0-100.0) fL MCH (25.0-35.0) pg MCHC (31.0-37.0) g/dL RDW (11.5-15.5) % Plt Count (150-450) k/uL MPV Neutrophils % % Lymphocytes % % Monocytes % % Eosinophils % % Basophils % % Neutrophils # (1.3-7.7) k/uL Lymphocytes # (1.0-4.8) k/uL Monocytes # (0-1.0) k/uL Eosinophils # (0-0.7) k/uL Basophils # (0-0.2) k/uL PT (9.0-12.0) sec INR (<1.2) APTT (22.0-30.0) sec Sodium (137-145) mmol/L Potassium (3.5-5.1) mmol/L Chloride (98-107) mmol/L Carbon Dioxide (22-30) mmol/L Anion Gap mmol/L BUN (9-20) mg/dL Creatinine (0.66-1.25) mg/dL Est GFR (CKD-EPI)AfAm (>60 ml/min/1.73 sqM) Est GFR (CKD-EPI)NonAf (>60 ml/min/1.73 sqM) Glucose (74-99) mg/dL Calcium (8.4-10.2) mg/dL Magnesium (1.6-2.3) mg/dL Total Bilirubin (0.2-1.3) mg/dL AST (17-59) U/L ALT (4-49) U/L Alkaline Phosphatase (38-126) U/L Troponin I <0.012 (0.000-0.034) ng/mL NT-Pro-B Natriuret Pep 90 pg/mL Total Protein (6.3-8.2) g/dL Albumin (3.5-5.0) g/dL Lipase (23-300) U/L Disposition Clinical Impression: Chest pain Disposition: ADMITTED IP TO THIS [facility] Condition: Stable Is patient prescribed a controlled substance at d/c from ED?: No Referrals: Aleida Guerrero MD [Primary Care Provider] - 1-2 days Decision to Admit Reason: Admit from EC Decision Date: 02/14/20 Decision Time: 16:49
[2020-02-14] MEDS: METOPROLOL SUCCINATE (ER) 50 MG TAB.ER.24H PO SCH (22:05)
[2020-02-14] MEDS: ATORVASTATIN 40 MG TAB PO SCH (22:05)
--- NOTE | 2020-02-14 22:29 | P.HPIM ---
History of Present Illness H&P Date: 02/14/20 Chief Complaint: chest Pain patient is a 54-year-old male with a known history of hypertension, hyperlipidemia, osteoarthritis, GERD, COPD and history of TIA and GERD came to ER with complaints of chest pain for the past 3 days. Patient has been having intermittent, dull chest pain but today before coming to the hospital patient felt like radiating to the back and to the right shoulder which made him to come to ER. Patient otherwise denied any complaints of nausea vomiting or diaphoresis. No shortness of breath. No headache or dizziness or lightheadedness. Denied any exertional dyspnea. No recent illnesses. No cough or sputum production. No fever no chills. Denies any recent travel. Patient was on follow-up with his contracting engineer. He had stress test and e chocardiogram done about 2 months ago. Patient also follows with vascular surgery for his aortic aneurysm. CT thoracic aorta showed ascending thoracic aortic aneurysm measuring 5.0 cm. Abdominal aorta is of normal caliber. No complicating factors noted. Laboratory data showed creatinine 1.46 and troponin x3 - and BNP 90 EKG showed normal sinus rhythm. Review of Systems Constitutional: Patient denies any fever or chills . No generalized weakness or weight loss. Abdomen: Patient denied nausea vomiting and diarrhea and abdominal pain. Cardiovascular: Patient does have intermittent chest pain. No associated shortness of breath. No palpitations.. Respiratory: patient denied any cough or sputum production. No shortness of breath Neurologic: Patient denied any numbness or tingling headache. Musculoskeletal: Patient denies any complaints of joint swelling or deformity. Skin: Negative Psychiatric: Negative Endocrine: No heat or cold intolerance. No recent weight gain. Genitourinary: No dysuria or hematuria. All other 14 point ROS negative except the above Past Medical History Past Medical History: Chest Pain / Angina, COPD, CVA/TIA, GERD/Reflux, Hyperlipidemia, Hypertension, Osteoarthritis (OA) Additional Past Medical History / Comment(s): HX OF KIDNEY STONES, TIA. STATES HE HAS AN ANEURYSM ON THE HEART AND IT IS BEING MONITORED BY A BLACK ASH BURNER OPERATOR. History of Any Multi-Drug Resistant Organisms: None Reported Past Surgical History: Cholecystectomy, Hernia Repair Additional Past Surgical History / Comment(s): 06/08/18 INCARCERATED INCISIONAL HERNIA (2) THREE OTHER HERNIA SURGERY. SURGERY X4. Lithotripsy, Past Anesthesia/Blood Transfusion Reactions: No Reported Reaction Past Psychological History: No Psychological Hx Reported Smoking Status: Former smoker Past Alcohol Use History: None Reported Additional Past Alcohol Use History / Comment(s): STARTED SMOKING SMOKING AT AGE 12 QUIT AT JAN 2018 SMOKED 1PPD. Past Drug Use History: None Reported Additional Drug Use History / Comment(s): . - Past Family History Mother Family Medical History: Coronary Artery Disease (CAD), Diabetes Mellitus Father Family Medical History: CVA/TIA, Hypertension Medications and Allergies Home Medications Medication Instructions Recorded Confirmed Type Metoprolol Succinate (ER) [Toprol 50 mg PO BID 04/15/18 02/14/20 History XL] Aspirin [Adult Low Dose Aspirin EC] 81 mg PO DAILY 10/09/18 02/14/20 History Sucralfate [Carafate] 1 gm PO BID 07/30/19 02/14/20 History Atorvastatin [Lipitor] 40 mg PO HS 10/13/19 02/14/20 History Losartan/Hydrochlorothiazide 1 tab PO DAILY 10/13/19 02/14/20 History [Losartan-Hctz 100-25 mg Tab] Topiramate [Topamax] 25 mg PO BID 10/13/19 02/14/20 History amLODIPine [Norvasc] 10 mg PO DAILY 10/13/19 02/14/20 History tiZANidine [Zanaflex] 4 mg PO HS PRN 10/13/19 02/14/20 History Acetaminophen [Tylenol Extra 500 mg PO BID 02/14/20 02/14/20 History Strength] Albuterol Sulfate [Albuterol 1 puff PO RT-BID PRN 02/14/20 02/14/20 History Sulfate Hfa] Furosemide [Lasix] 20 mg PO DAILY 02/14/20 02/14/20 History Meloxicam 7.5 mg PO BID 02/14/20 02/14/20 History Simethicone [Gas-X] 125 mg PO BID 02/14/20 02/14/20 History Allergies Allergy/AdvReac Type Severity Reaction Status Date / Time hydrocodone [From [place]] AdvReac Nausea, Verified 02/14/20 16:06 light headed ranitidine HCl [From Zantac] AdvReac Nausea & Verified 02/14/20 16:06 Vomiting Physical Exam Vitals: Vital Signs Temp Pulse Pulse Resp BP BP Pulse Ox 02/14/20 18:57 97.5 F L 81 20 167/97 95 02/14/20 18:06 97.8 F 77 18 102/65 97 02/14/20 16:21 68 18 102/57 98 02/14/20 14:39 97.7 F 88 18 150/95 97 Intake and Output 02/14/20 02/14/20 02/14/20 06:59 14:59 22:59 Other: # Voids 0 Weight 132.449 kg 132.449 kg PHYSICAL EXAMINATION: Patient is lying in the bed comfortably, no acute distress, awake alert and oriented.. HEENT: Normocephalic. Neck is supple. Pupils reactive. Nostrils clear. Oral cavity is moist. Ears reveal no drainage. Neck reveals no JVD, carotid bruits, or thyromegaly. CHEST EXAMINATION: Trachea is central. Symmetrical expansion. Lung kearney clear to auscultation and percussion. CARDIAC: Normal S1, S2 with no gallops. No murmurs ABDOMEN: Soft. Bowel sounds normal. No organomegaly. No abdominal bruits. Extremities: reveal no edema. No clubbing or cyanosis Neurologically awake, alert, oriented x3 with well-coordinated movements. No focal deficits noted Skin: No rash or skin lesions. Psychiatric: Coperative. Nonsuicidal Musculoskeletal: No joint swelling or deformity. Normal range of motion. Results CBC & Chem 7: 02/14/20 15:07 02/14/20 15:07 Labs: Abnormal Lab Results - Last 24 Hours (Table) 02/14/20 Range/Units 15:07 Creatinine 1.46 H (0.66-1.25) mg/dL Glucose 105 H (74-99) mg/dL Total Protein 8.3 H (6.3-8.2) g/dL Thrombosis Risk Factor Assmnt - DVT/VTE Prophylaxis DVT/VTE Prophylaxis: Pharmacologic Prophylaxis ordered - Choose All That Apply Each Factor Represents 1 point: Abnormal pulmonary function (COPD), Age 41-60 years Other Risk Factors: No Other congenital or acquired thrombophilia - If yes, enter type in comment: No Thrombosis Risk Factor Assessment Total Risk Factor Score: 2 Thrombosis Risk Factor Assessment Level: Low Risk Assessment and Plan Assessment: Atypical chest pain. Ruled out ACS. Possible GERD related. Ascending aortic aneurysm 5.0 cm Hypertension Hyperlipidemia History of TIA with no residual weakness. Previous history of smoking COPD Osteoarthritis History of nephrolithiasis and lithotripsy Morbid obesity with BMI 45.7 DVT prophylaxis with heparin subcu. Plan: Patient will be continued on telemetry monitoring. Serial EKG and troponin x3 - . Cardiology was consulted due to history of aortic aneurysm. Started on PPI. Follow-up overnight and further recommendations based on the clinical course.
[2020-02-14] MEDS: HEPARIN SODIUM,PORCINE 5,000 UNIT/ML 1 ML VIAL SQ SCH (23:38)
[2020-02-14] MEDS: PANTOPRAZOLE 40 MG TABLET PO SCH (23:38)
[2020-02-15] MEDS: PANTOPRAZOLE 40 MG TABLET PO SCH (06:46)
[2020-02-15] MEDS: HEPARIN SODIUM,PORCINE 5,000 UNIT/ML 1 ML VIAL SQ SCH ×3 (08:51→23:49)
[2020-02-15] MEDS: TOPIRAMATE 25 MG TAB PO SCH ×2 (08:51→20:41)
[2020-02-15] MEDS: amLODIPine 10 MG TAB PO SCH (08:51)
[2020-02-15] MEDS: ASPIRIN 81 MG PO SCH (08:51)
[2020-02-15] MEDS: METOPROLOL SUCCINATE (ER) 50 MG TAB.ER.24H PO SCH ×2 (08:51→20:41)
[2020-02-15] MEDS: FUROSEMIDE 10 MG/ML 4 ML VIAL IV SCH ×2 (09:19→20:41)
--- NOTE | 2020-02-15 11:35 | P.CRDCN ---
History of Present Illness Consult date: 02/15/20 History of present illness: CHIEF COMPLAINT: chest pain HISTORY OF PRESENT ILLNESS: This is a 54-year old male with a past medical history significant for hypertension, hyperlipidemia, COPD, CVA, GERD, and congestive heart failure. Patient follows in the office with Dr. Sanders. We have been asked to see the patient in consultation for chest pain. Patient examined this morning at the bedside. He reports he began having chest pain that started Friday while he was watching TV. He states the pain went into his back which c oncerned him because he has a history of an aneurysm. Patient states he is still having chest pain this morning. He is currently rating it a 3/10. He states the pain has been constant since Friday. The pain is mostly on the right side of the chest. The pain is not worse with chest wall palpation. He does report the pain is worse with deep inspiration. DIAGNOSTICS: EKG reveals sinus rhythm without acute signs of ischemia CT angio: ascending thoracic aortic aneurysm Laboratory data: WBC 9.1. Hemoglobin 15.2. Platelet count 291. Sodium 137. Potassium 3.8. BUN 16. Creatinine 1.46. troponin negative 3 Current home cardiac medications include Lipitor 40 mg daily, Norvasc 10 mg daily, Toprol-XL 50 mg twice a day, losartan/hydrochlorothiazide 100-25mg daily, Lasix 20 mg daily, aspirin 81 mg daily Patient had an echocardiogram completed in September 2019 revealing EF 55-60%, mild mitral regurgitation, and mild tricuspid regurgitation Patient had a dobutamine stress test in September 2019 which was negative for reversible ischemia REVIEW OF SYSTEMS: At the time of my exam: CONSTITUTIONAL: Denies fever or chills. HEENT: Denies blurred vision, vision changes, or eye pain. Denies hemoptysis CARDIOVASCULAR: Denies chest pain, orthopnea, PND or palpitations RESPIRATORY: No shortness of breath. GASTROINTESTINAL: Denies abdominal pain. Denies nausea or vomiting. HEMATOLOGIC: Denies bleeding disorders. GENITOURINARY: Denies any blood in urine. SKIN: Denies pruitis. Denies rash. PHYSICAL EXAM: VITAL SIGNS: Reviewed. GENERAL: Well-developed in no acute distress. HEENT: Head is normocephalic. Pupils are equal, round. Sclerae anicteric. Mucous membranes of the mouth are moist. Neck supple. No JVD or thyromegaly LUNGS: Respirations even and unlabored. Lungs diminished. HEART: Regular rate and rhythm. S1 and S2 heard. ABDOMEN: Soft. Nondistended. Nontender. EXTREMITIES: Normal range of motion. No clubbing or cyanosis. Peripheral pulses intact. 2-3+ bilateral lower extremity edema NEUROLOGIC: Awake and alert. Oriented x 3. ASSESSMENT: Chest pain, troponins negative 3, no evidence of acute coronary syndrome, patient with negative stress test in September 2019 Mild exacerbation of chronic diastolic congestive heart failure with worsening lower extremity edema, EF 55-60% Hypertension Hyperlipidemia Ascending thoracic aortic aneurysm COPD CVA Osteoarthritis PLAN: Resume home cardiac medications Begin Lasix 40 mg IV every 12 hours Cardiothoracic surgery consult. Await evaluation Further recognitions pending patient's course Nurse practitioner note has been reviewed by physician. Signing provider agrees with the documented findings, assessment, and plan of care. Past Medical History Past Medical History: Chest Pain / Angina, COPD, CVA/TIA, GERD/Reflux, Hyperlipidemia, Hypertension, Osteoarthritis (OA) Additional Past Medical History / Comment(s): HX OF KIDNEY STONES, TIA. STATES HE HAS AN ANEURYSM ON THE HEART AND IT IS BEING MONITORED BY A LICENSED PRACTICAL NURSE INSTRUCTOR. History of Any Multi-Drug Resistant Organisms: None Reported Past Surgical History: Cholecystectomy, Hernia Repair Additional Past Surgical History / Comment(s): 06/08/18 INCARCERATED INCISIONAL HERNIA (2) THREE OTHER HERNIA SURGERY. SURGERY X4. Lithotripsy, Past Anesthesia/Blood Transfusion Reactions: No Reported Reaction Past Psychological History: No Psychological Hx Reported Smoking Status: Former smoker Past Alcohol Use History: None Reported Additional Past Alcohol Use History / Comment(s): STARTED SMOKING SMOKING AT AGE 12 QUIT AT JAN 2018 SMOKED 1PPD. Past Drug Use History: None Reported Additional Drug Use History / Comment(s): . - Past Family History Mother Family Medical History: Coronary Artery Disease (CAD), Diabetes Mellitus Father Family Medical History: CVA/TIA, Hypertension Medications and Allergies Home Medications Medication Instructions Recorded Confirmed Type Metoprolol Succinate (ER) [Toprol 50 mg PO BID 04/15/18 02/14/20 History XL] Aspirin [Adult Low Dose Aspirin EC] 81 mg PO DAILY 10/09/18 02/14/20 History Sucralfate [Carafate] 1 gm PO BID 07/30/19 02/14/20 History Atorvastatin [Lipitor] 40 mg PO HS 10/13/19 02/14/20 History Losartan/Hydrochlorothiazide 1 tab PO DAILY 10/13/19 02/14/20 History [Losartan-Hctz 100-25 mg Tab] Topiramate [Topamax] 25 mg PO BID 10/13/19 02/14/20 History amLODIPine [Norvasc] 10 mg PO DAILY 10/13/19 02/14/20 History tiZANidine [Zanaflex] 4 mg PO HS PRN 10/13/19 02/14/20 History Acetaminophen [Tylenol Extra 500 mg PO BID 02/14/20 02/14/20 History Strength] Albuterol Sulfate [Albuterol 1 puff PO RT-BID PRN 02/14/20 02/14/20 History Sulfate Hfa] Furosemide [Lasix] 20 mg PO DAILY 02/14/20 02/14/20 History Meloxicam 7.5 mg PO BID 02/14/20 02/14/20 History Simethicone [Gas-X] 125 mg PO BID 02/14/20 02/14/20 History Allergies Allergy/AdvReac Type Severity Reaction Status Date / Time hydrocodone [From [place]] AdvReac Nausea, Verified 02/14/20 16:06 light headed ranitidine HCl [From Zantac] AdvReac Nausea & Verified 02/14/20 16:06 Vomiting Physical Exam Vitals: Vital Signs Temp Pulse Pulse Resp BP BP Pulse Ox 02/15/20 08:00 98.4 F 73 20 148/73 98 02/15/20 04:00 97.6 F 71 16 117/65 97 02/15/20 00:00 98.1 F 79 16 116/80 95 02/14/20 20:00 97.8 F 71 16 134/80 97 02/14/20 18:57 97.5 F L 81 20 167/97 95 02/14/20 18:06 97.8 F 77 18 102/65 97 02/14/20 16:21 68 18 102/57 98 02/14/20 14:39 97.7 F 88 18 150/95 97 Intake and Output 02/14/20 02/15/20 02/15/20 22:59 06:59 14:59 Other: Voiding Method Toilet Toilet # Voids 0 1 Weight 132.449 kg 136.2 kg Results 02/14/20 15:07 02/14/20 15:07 Cardiac Enzymes 02/14/20 02/14/20 02/14/20 Range/Units 15:07 15:07 18:22 AST 28 (17-59) U/L Troponin I <0.012 <0.012 (0.000-0.034) ng/mL 02/14/20 Range/Units 20:53 AST (17-59) U/L Troponin I <0.012 (0.000-0.034) ng/mL Coagulation 02/14/20 Range/Units 15:07 PT 9.7 (9.0-12.0) sec APTT 25.6 (22.0-30.0) sec CBC 02/14/20 Range/Units 15:07 WBC 9.1 (3.8-10.6) k/uL RBC 5.23 (4.30-5.90) m/uL Hgb 15.2 (13.0-17.5) gm/dL Hct 44.2 (39.0-53.0) % Plt Count 291 (150-450) k/uL Comprehensive Metabolic Panel 02/14/20 Range/Units 15:07 Sodium 137 (137-145) mmol/L Potassium 3.8 (3.5-5.1) mmol/L Chloride 100 (98-107) mmol/L Carbon Dioxide 26 (22-30) mmol/L BUN 16 (9-20) mg/dL Creatinine 1.46 H (0.66-1.25) mg/dL Glucose 105 H (74-99) mg/dL Calcium 9.8 (8.4-10.2) mg/dL AST 28 (17-59) U/L ALT 26 (4-49) U/L Alkaline Phosphatase 100 (38-126) U/L Total Protein 8.3 H (6.3-8.2) g/dL Albumin 4.8 (3.5-5.0) g/dL Current Medications Generic Name Dose Route Start Last Admin Trade Name Freq PRN Reason Stop Dose Admin Acetaminophen 650 mg 02/14/20 16:43 Acetaminophen Tab 325 Mg Tab PO Q6HR PRN Mild Pain or Fever > 100.5 Amlodipine Besylate 10 mg 02/15/20 09:00 02/15/20 08:51 Amlodipine 10 Mg Tab PO 10 mg DAILY YOVANA Administration Aspirin 81 mg 02/15/20 09:00 02/15/20 08:51 Aspirin 81 Mg PO 81 mg DAILY YOVANA Administration Atorvastatin Calcium 40 mg 02/14/20 21:00 02/14/20 22:05 Atorvastatin 40 Mg Tab PO 40 mg HS YOVANA Administration Furosemide 40 mg 02/15/20 09:15 02/15/20 09:19 Furosemide 10 Mg/Ml 4 Ml Vial IV 40 mg Q12HR YOVANA Administration Heparin Sodium (Porcine) 5,000 unit 02/15/20 00:00 02/15/20 08:51 Heparin Sodium,Porcine 5,000 Unit/Ml 1 Ml Vial SQ 5,000 unit Q8HR YOVANA Administration Metoprolol Succinate 50 mg 02/14/20 21:00 02/15/20 08:51 Metoprolol Succinate (Er) 50 Mg Tab.Er.24h PO 50 mg BID YOVANA Administration Morphine Sulfate 4 mg 02/14/20 16:43 Morphine Sulfate 4 Mg/Ml Syringe IV Q4HR PRN Severe Pain Naloxone HCl 0.2 mg 02/14/20 16:43 Naloxone 0.4 Mg/Ml 1 Ml Vial IV Q2M PRN Opioid Reversal Pantoprazole Sodium 40 mg 02/14/20 22:30 02/15/20 06:46 Pantoprazole 40 Mg Tablet PO 40 mg [id number] YOVANA Administration Topiramate 25 mg 02/15/20 09:00 02/15/20 08:51 Topiramate 25 Mg Tab PO 25 mg BID YOVANA Administration Intake and Output 02/14/20 02/15/20 02/15/20 22:59 06:59 14:59 Other: Voiding Method Toilet Toilet # Voids 0 1 Weight 132.449 kg 136.2 kg 02/14/20 15:07 02/14/20 15:07
--- NOTE | 2020-02-15 11:43 | ECHOF ---
Referral Reason:assess lv function MEASUREMENTS -------- HEIGHT: 170.2 cm WEIGHT: 136.1 kg BP: RVIDd: 3.4 cm (< 3.3) IVSd: 0.9 cm (0.6 - 1.1) LVIDd: 3.8 cm (3.9 - 5.3) LVPWd: 1.2 cm (0.6 - 1.1) IVSs: 1.7 cm LVIDs: 1.9 cm LVPWs: 1.5 cm Ao Diam: 3.2 cm (2.0 - 3.7) AV Cusp: 2.0 cm (1.5 - 2.6) LA Diam: 3.5 cm (2.7 - 3.8) MV EXCURSION: 14.382 mm (> 18.000) MV EF SLOPE: 56 mm/s (70 - 150) EPSS: 0.8 cm MV E Sulaiman: 0.94 m/s MV DecT: 193 ms MV A Sulaiman: 0.83 m/s MV E/A Ratio: 1.14 FINDINGS -------- This was a technically difficult study with suboptimal views. The left ventricular size is normal. Left ventricular wall thickness is normal. Overall left vent ricular systolic function is normal with, an EF between 55 - 60 %. The right ventricle is mildly enlarged. The left atrial size is normal. The right atrium was not well visualized. Lumason used The aortic valve is trileaflet and appears structurally normal. The mitral valve is normal. There is trace mitral regurgitation. The tricuspid valve appears structurally normal. Mild tricuspid regurgitation present. Right vent ricular systolic pressure is normal at < 35 mmHg. There is no pulmonic regurgitation present. The aortic root size is normal. IVC Not well visulized. There is no pericardial effusion. CONCLUSIONS -------- 1. The left ventricular size is normal. 2. Left ventricular wall thickness is normal. 3. Overall left ventricular systolic function is normal with, an EF between 55 - 60 %. 4. The right ventricle is mildly enlarged. 5. There is trace mitral regurgitation. 6. Mild tricuspid regurgitation present. 7. There is no pericardial effusion. HEALTH INFORMATION MANAGEMENT DIRECTOR: Linda Baltazar RD
--- NOTE | 2020-02-15 17:53 | P.GSCN ---
History of Present Illness Consult date: 02/15/20 Reason for Consult: Thoracic aortic aneurysm. Requesting physician: Jason Whitlock History of present illness: This is a 54-year-old gentleman who is followed by Dr. Guerrero on an outpatient basis. He also follows with Dr. Sanders from [facility] on an outpatient basis. He has a past medical history significant for a known thoracic aortic aneurysm which is followed with serial CT scans of the chest, h ypertension, hyperlipidemia, CVA in 2018 with no residual right-sided weakness, GERD, kidney stones, congestive heart failure, remote history of smoking dependence with smoking in 2018, chronic obstructive pulmonary disease and family history of early onset coronary artery disease with his mother having from a myocardial infarction at age 39. The patient presented to the emergency department here at [facility] yesterday 02/14/2020 with complaints of right upper chest pain which radiated to his right upper back. Denies any complaints of shortness of breath, nausea, diaphoresis, syncope, orthopnea, fever or chills. He reports while watching TV on Friday the 2019 the chest pain came on while at rest. He reports the chest pain has been there since Friday and has had no relief from the chest pain. He states that because of his history of an aneurysm and his ex- recently passing away from an aneurysm he felt like he should be evaluated for the chest pain. A 12- lead EKG was completed in the emergency department which shows normal sinus rhythm without any signs of ischemia with a heart rate of 74 BPM. Initial laboratory results showed a WBC count 9.1, hemoglobin 15.2, platelets 291, INR 0.9, PT 9.7, BUN 16, creatinine 1.46 and serial troponins were negative. A CTA of his chest was completed which was reviewed by Dr. Juan A Carlton from cardio thoracic surgery and it showed an ascending thoracic aortic aneurysm measuring 4.2 cm. Due to the patient's ascending aortic aneurysm a consult was placed to Dr. Juan A Carlton for further evaluation and treatment recommendations. Review of Systems A 14 point review of systems was completed and was negative except as mentioned in the HPI. Past Medical History Past Medical History: Chest Pain / Angina, COPD, CVA/TIA, GERD/Reflux, Hyperlipidemia, Hypertension, Osteoarthritis (OA) Additional Past Medical History / Comment(s): HX OF KIDNEY STONES, TIA. STATES HE HAS AN ANEURYSM ON THE HEART AND IT IS BEING MONITORED BY A BEHAVIORAL SPECIALIST. History of Any Multi-Drug Resistant Organisms: None Reported Past Surgical History: Cholecystectomy, Hernia Repair Additional Past Surgical History / Comment(s): 06/08/18 INCARCERATED INCISIONAL HERNIA (2) THREE OTHER HERNIA SURGERY. SURGERY X4. Lithotripsy, Past Anesthesia/Blood Transfusion Reactions: No Reported Reaction Past Psychological History: No Psychological Hx Reported Smoking Status: Former smoker Past Alcohol Use History: None Reported Additional Past Alcohol Use History / Comment(s): STARTED SMOKING SMOKING AT AGE 12 QUIT AT JAN 2018 SMOKED 1PPD. Past Drug Use History: None Reported Additional Drug Use History / Comment(s): . - Past Family History Mother Family Medical History: Coronary Artery Disease (CAD), Diabetes Mellitus Additional Family Medical History / Comment(s): Past away at age 39 from myocardial infarction Father Family Medical History: CVA/TIA, Hypertension Medications and Allergies Home Medications Medication Instructions Recorded Confirmed Type Metoprolol Succinate (ER) [Toprol 50 mg PO BID 04/15/18 02/14/20 History XL] Aspirin [Adult Low Dose Aspirin EC] 81 mg PO DAILY 10/09/18 02/14/20 History Sucralfate [Carafate] 1 gm PO BID 07/30/19 02/14/20 History Atorvastatin [Lipitor] 40 mg PO HS 10/13/19 02/14/20 History Losartan/Hydrochlorothiazide 1 tab PO DAILY 10/13/19 02/14/20 History [Losartan-Hctz 100-25 mg Tab] Topiramate [Topamax] 25 mg PO BID 10/13/19 02/14/20 History amLODIPine [Norvasc] 10 mg PO DAILY 10/13/19 02/14/20 History tiZANidine [Zanaflex] 4 mg PO HS PRN 10/13/19 02/14/20 History Acetaminophen [Tylenol Extra 500 mg PO BID 02/14/20 02/14/20 History Strength] Albuterol Sulfate [Albuterol 1 puff PO RT-BID PRN 02/14/20 02/14/20 History Sulfate Hfa] Furosemide [Lasix] 20 mg PO DAILY 02/14/20 02/14/20 History Meloxicam 7.5 mg PO BID 02/14/20 02/14/20 History Simethicone [Gas-X] 125 mg PO BID 02/14/20 02/14/20 History Allergies Allergy/AdvReac Type Severity Reaction Status Date / Time hydrocodone [From [place]] AdvReac Nausea, Verified 02/14/20 16:06 light headed ranitidine HCl [From Zantac] AdvReac Nausea & Verified 02/14/20 16:06 Vomiting Surgical - Exam Vital Signs Temp Pulse Resp BP Pulse Ox 97.7 F 88 18 150/95 97 02/14/20 14:39 02/14/20 14:39 02/14/20 14:39 02/14/20 14:39 02/14/20 14:39 - General Morbidly obese, right upper chest pain 3 out of 10 on the pain scale. well developed, well nourished, no distress, moderate distress - Eyes PERRL, normal ocular movement, no icteric - ENT Edentulous normal pinna, normal nares, normal mucosa, no hearing loss, no congestion - Neck Neck is supple. no masses, no bruits, trachea midline, no venous distension - Respiratory Lungs sounds essentially clear throughout, diminished to his bilateral bases. Respirations are symmetrical and nonlabored. - Cardiovascular Regular rhythm and rate. S1 and S2 present, negative for S3, gallop or murmur. - Abdomen Abdomen is soft, nontender and nondistended. No organomegaly appreciated. Obese. - Genitourinary Deferred - Rectum Deferred - Integumentary no rash, no growths, no abnormal pigmentation - Neurologic Cranial nerves II through XII intact. - Musculoskeletal Strength equal bilaterally. normal gait, normal posture - Psychiatric oriented to time, oriented to person, oriented to place, speech is normal, memory intact Results - Labs 02/14/20 15:07 02/14/20 15:07 - Imaging CT scan - chest: report reviewed, image reviewed (Reviewed by Dr. Juan A Carlton.) Assessment and Plan Assessment: 1. Chest pain, serial troponins were negative 2. History of ascending aortic aneurysm, followed with serial CT scans on an outpatient basis 3. Acute on chronic diastolic congestive heart failure, lower extremity edema 4. Hypertension 5. Hyperlipidemia 6. Chronic obstructive pulmonary disease 7. History of CVA in 2018 with no residual effects 8. Family history of early onset coronary artery disease with his mom having a myocardial infarction at age 39 9. Remote history of tobacco abuse quit smoking in 2018 Plan: The patient was seen and examined at his bedside on the cardiac stepdown unit. His chart and diagnostics were reviewed. The patient was seen and examined by Dr. Juan A Carlton from cardiothoracic surgery. The CTA of his chest was reviewed by Dr. Carlton and his ascending aorta measured 4.2 cm. Recommendations to obtain a 2-D echocardiogram. Strict blood pressure control. Obtain repeat CTA of the chest in 1 year. The patient recently underwent a stress test in September 2019. Continue to optimize medical management with aspirin, beta cindy, and statin. No surgical intervention is warranted at this time. Medical management and other comorbidities per primary care service and cardiology service. More recommendations to follow based on patient's clinical course. Thank you for this consult and we will look forward to working with you in the care of this patient. Nurse practitioner note has been reviewed by the physician. Signing provider agrees with the above documented findings, assessment and plan of care. Time with Patient: Greater than 30
--- NOTE | 2020-02-15 19:05 | P.CNPUL ---
History of Present Illness Consult date: 02/15/20 Reason for consult: dyspnea, chest pain, COPD Chief complaint: Chest pain that'll quality started a day ago History of present illness: This is a 54-year-old morbidly obese male with extensive history of smoking and nicotine use 1 to half pack per day for about 40 years quit about 2 years ago, patient has a problem with dyspnea on exertion he is morbidly obese also has primary problem associated dyslipidemia hypertension COPD GERD, 2 years ago patient was found to have a dilated aorta/aortic aneurysm which is being monitor observe, computed tomography scan at that time revealed a 5 cm size which is slightly change compared to baseline, no obvious infiltrate has been noted on computed tomography scan on lungs, patient has been evaluated by cardiovascular services and thoracic surgery, echocardiogram revealed ejection fraction of 60%, RV is mildly enlarged, Review of Systems All systems: negative Past Medical History Past Medical History: Chest Pain / Angina, COPD, CVA/TIA, GERD/Reflux, Hyperlipidemia, Hypertension, Osteoarthritis (OA) Additional Past Medical History / Comment(s): HX OF KIDNEY STONES, TIA. STATES HE HAS AN ANEURYSM ON THE HEART AND IT IS BEING MONITORED BY A SENIOR CIVIL ENGINEER. History of Any Multi-Drug Resistant Organisms: None Reported Past Surgical History: Cholecystectomy, Hernia Repair Additional Past Surgical History / Comment(s): 06/08/18 INCARCERATED INCISIONAL HERNIA (2) THREE OTHER HERNIA SURGERY. SURGERY X4. Lithotripsy, Past Anesthesia/Blood Transfusion Reactions: No Reported Reaction Past Psychological History: No Psychological Hx Reported Smoking Status: Former smoker Past Alcohol Use History: None Reported Additional Past Alcohol Use History / Comment(s): STARTED SMOKING SMOKING AT AGE 12 QUIT AT JAN 2018 SMOKED 1PPD. Past Drug Use History: None Reported Additional Drug Use History / Comment(s): . - Past Family History Mother Family Medical History: Coronary Artery Disease (CAD), Diabetes Mellitus Additional Family Medical History / Comment(s): Past away at age 39 from myocardial infarction Father Family Medical History: CVA/TIA, Hypertension Medications and Allergies Home Medications Medication Instructions Recorded Confirmed Type Metoprolol Succinate (ER) [Toprol 50 mg PO BID 04/15/18 02/14/20 History XL] Aspirin [Adult Low Dose Aspirin EC] 81 mg PO DAILY 10/09/18 02/14/20 History Sucralfate [Carafate] 1 gm PO BID 07/30/19 02/14/20 History Atorvastatin [Lipitor] 40 mg PO HS 10/13/19 02/14/20 History Losartan/Hydrochlorothiazide 1 tab PO DAILY 10/13/19 02/14/20 History [Losartan-Hctz 100-25 mg Tab] Topiramate [Topamax] 25 mg PO BID 10/13/19 02/14/20 History amLODIPine [Norvasc] 10 mg PO DAILY 10/13/19 02/14/20 History tiZANidine [Zanaflex] 4 mg PO HS PRN 10/13/19 02/14/20 History Acetaminophen [Tylenol Extra 500 mg PO BID 02/14/20 02/14/20 History Strength] Albuterol Sulfate [Albuterol 1 puff PO RT-BID PRN 02/14/20 02/14/20 History Sulfate Hfa] Furosemide [Lasix] 20 mg PO DAILY 02/14/20 02/14/20 History Meloxicam 7.5 mg PO BID 02/14/20 02/14/20 History Simethicone [Gas-X] 125 mg PO BID 02/14/20 02/14/20 History Allergies Allergy/AdvReac Type Severity Reaction Status Date / Time hydrocodone [From [place]] AdvReac Nausea, Verified 02/14/20 16:06 light headed ranitidine HCl [From Zantac] AdvReac Nausea & Verified 02/14/20 16:06 Vomiting Physical Exam Vitals: Vital Signs Temp Pulse Resp BP Pulse Ox 02/15/20 16:00 97.4 F L 70 20 140/73 97 02/15/20 12:00 20 02/15/20 08:00 98.4 F 73 20 148/73 98 02/15/20 04:00 97.6 F 71 16 117/65 97 02/15/20 00:00 98.1 F 79 16 116/80 95 02/14/20 20:00 97.8 F 71 16 134/80 97 Intake and Output 02/15/20 02/15/20 02/15/20 06:59 14:59 22:59 Intake Total 480 240 Output Total 850 Balance -370 240 Intake: Oral 480 240 Output: Urine 850 Other: Voiding Method Toilet # Voids 1 1 1 # Bowel Movements 0 Weight 136.2 kg - Constitutional General appearance: disheveled, morbidly obese, no acute distress - EENT Eyes: PERRLA Ears: bilateral: normal - Neck Neck: normal ROM Carotids: bilateral: upstroke normal - Respiratory Respiratory: bilateral: CTA - Cardiovascular Rhythm: regular Heart sounds: normal: S1, S2 - Gastrointestinal General gastrointestinal: normal bowel sounds - Neurologic Neurologic: CNII-XII intact - Musculoskeletal Musculoskeletal: gait normal, generalized weakness, strength equal bilaterally - Psychiatric Psychiatric: A&O x's 3, appropriate affect, intact judgment & insight Results - Laboratory Findings CBC and BMP: 02/14/20 15:07 02/14/20 15:07 PT/INR, D-dimer PT 9.7 sec (9.0-12.0) 02/14/20 15:07 INR 0.9 (<1.2) 02/14/20 15:07 Abnormal lab findings: Abnormal Labs 02/14/20 15:07 Creatinine 1.46 H Glucose 105 H Total Protein 8.3 H - Diagnostic Findings CT scan - chest: report reviewed, image reviewed (Finding as noted above) Assessment and Plan Assessment: Atypical chest pain Ascending thoracic aortic aneurysm Acute on chronic kidney injury with GFR of 54 Chronic diastolic heart failure History of CVA in 2018 COPD Dyslipidemia Hypertension hypertensive cardiovascular disease Likely sleep disorder breathing and sleep apnea Plan: Chest pain is atypical, will defer to further evaluation by cardiovascular services, pain has improved to 1-2 out of 10 patient's COPD appears to be stable on as needed bronchodilator will follow clinical course closely agree from LV standpoint for discharge pending further cardiovascular workup continue DVT prophylaxis increase activity as tolerated further plan of care recommendation pending Time with Patient: Greater than 30
[2020-02-15] MEDS: ATORVASTATIN 40 MG TAB PO SCH (20:40)
[2020-02-16 05:10] VITALS: RESP 16
[2020-02-16] MEDS: PANTOPRAZOLE 40 MG TABLET PO SCH (06:51)
[2020-02-16 08:24] LABS: Calcium 9.1 mg/dL (8.4-10.2)
[2020-02-16 08:30] LABS: Potassium 3.9 mmol/L (3.5-5.1)
[2020-02-16] MEDS: ASPIRIN 81 MG PO SCH (10:01)
[2020-02-16] MEDS: FUROSEMIDE 10 MG/ML 4 ML VIAL IV SCH ×2 (10:01→20:11)
[2020-02-16] MEDS: METOPROLOL SUCCINATE (ER) 50 MG TAB.ER.24H PO SCH ×2 (10:01→20:10)
[2020-02-16] MEDS: amLODIPine 10 MG TAB PO SCH (10:01)
[2020-02-16] MEDS: TOPIRAMATE 25 MG TAB PO SCH ×2 (10:01→20:10)
[2020-02-16] MEDS: HEPARIN SODIUM,PORCINE 5,000 UNIT/ML 1 ML VIAL SQ SCH ×2 (10:02→16:24)
--- NOTE | 2020-02-16 11:32 | P.PN ---
Subjective Progress Note Date: 02/16/20 Principal diagnosis: Atypical chest pain Ascending thoracic aortic aneurysm Acute on chronic kidney injury with GFR of 54 Chronic diastolic heart failure History of CVA in 2018 COPD Dyslipidemia Hypertension hypertensive cardiovascular disease Likely sleep disorder breathing and sleep apnea 02/15/2019, patient seen eval reexamined, doing well denies any chest pain no sh ortness of breath renal function slightly better, oxygen saturation 97% on room air, mechanics is stable, This is a 54-year-old morbidly obese male with extensive history of smoking and nicotine use 1 to half pack per day for about 40 years quit about 2 years ago, patient has a problem with dyspnea on exertion he is morbidly obese also has primary problem associated dyslipidemia hypertension COPD GERD, 2 years ago patient was found to have a dilated aorta/aortic aneurysm which is being monitor observe, computed tomography scan at that time revealed a 5 cm size which is slightly change compared to baseline, no obvious infiltrate has been noted on computed tomography scan on lungs, patient has been evaluated by cardiovascular services and thoracic surgery, echocardiogram revealed ejection fraction of 60%, RV is mildly enlarged, Objective - Vital Signs Vital signs: Vital Signs Temp 98.3 F 02/16/20 08:00 Pulse 85 02/16/20 08:00 Resp 16 02/16/20 11:09 BP 121/76 02/16/20 08:00 Pulse Ox 97 02/16/20 08:00 Intake & Output 02/15/20 02/16/20 02/16/20 18:59 06:59 18:59 Intake Total 720 120 Output Total 850 1900 600 Balance -130 -1900 -480 Intake: Oral 720 120 Output: Urine 850 1900 600 Other: Voiding Method Toilet Toilet # Voids 1 1 1 # Bowel Movements 0 0 - Exam - Constitutional General appearance: disheveled, morbidly obese, no acute distress - EENT Eyes: PERRLA Ears: bilateral: normal - Neck Neck: normal ROM Carotids: bilateral: upstroke normal - Respiratory Respiratory: bilateral: CTA - Cardiovascular Rhythm: regular Heart sounds: normal: S1, S2 - Gastrointestinal General gastrointestinal: normal bowel sounds - Neurologic Neurologic: CNII-XII intact - Musculoskeletal Musculoskeletal: gait normal, generalized weakness, strength equal bilaterally - Psychiatric Psychiatric: A&O x's 3, appropriate affect, intact judgment & insight - Labs CBC & Chem 7: 02/14/20 15:07 02/16/20 07:13 Labs: Abnormal Lab Results - Last 24 Hours (Table) 02/16/20 Range/Units 07:13 BUN 23 H (9-20) mg/dL Creatinine 1.26 H (0.66-1.25) mg/dL Glucose 100 H (74-99) mg/dL Assessment and Plan Assessment: Atypical chest pain Ascending thoracic aortic aneurysm Acute on chronic kidney injury with GFR of 54 Chronic diastolic heart failure History of CVA in 2018 COPD Dyslipidemia Hypertension hypertensive cardiovascular disease Likely sleep disorder breathing and sleep apnea Plan: Chest pain is atypical, will defer to further evaluation by cardiovascular services, pain has improved to 1-2 out of 10 patient's COPD appears to be stable on as needed bronchodilator will follow clinical course closely agree from pulmonary standpoint for discharge pending further cardiovascular workup continue DVT prophylaxis increase activity as tolerated further plan of care recommendation pending Time with Patient: Greater than 30
--- NOTE | 2020-02-16 14:04 | P.PN ---
Subjective Progress Note Date: 02/16/20 CHIEF COMPLAINT: chest pain HISTORY OF PRESENT ILLNESS: Patient examined this morning the bedside. He states his shortness of breath has improved. He reports minimal chest wall discomfort and currently rating it a 2/10. He remains on Lasix 40 mg IV every 12 hours. Creatinine 1.26 today. Fluid balance over the last 24 hours is -2 L. PHYSICAL EXAM: VITAL SIGNS: Reviewed. GENERAL: Well-developed in no acute distress. HEENT: Head is normocephalic. Pupils are equal, round. Sclerae anicteric. Mucous membranes of the mouth are moist. Neck supple. No JVD or thyromegaly LUNGS: Respirations even and unlabored. Lungs diminished. HEART: Regular rate and rhythm. S1 and S2 heard. ABDOMEN: Soft. Nondistended. Nontender. EXTREMITIES: Normal range of motion. No clubbing or cyanosis. Peripheral pulses intact. 2+ bilateral lower extremity edema NEUROLOGIC: Awake and alert. Oriented x 3. ASSESSMENT: Chest pain, troponins negative 3, no evidence of acute coronary syndrome, patient with negative stress test in September 2019 Mild exacerbation of chronic diastolic congestive heart failure with worsening lower extremity edema, EF 55-60% Hypertension Hyperlipidemia Ascending thoracic aortic aneurysm COPD CVA Osteoarthritis PLAN: Continue current cardiac medications Continue Lasix 40 mg IV every 12 hours Monitor kidney function Daily weights Accurate I&O Further recommendations pending patient's course Nurse practitioner note has been reviewed by physician. Signing provider agrees with the documented findings, assessment, and plan of care. Objective - Vital Signs Vital signs: Vital Signs Temp 98.3 F 02/16/20 08:00 Pulse 71 02/16/20 12:00 Resp 16 02/16/20 12:00 BP 114/75 02/16/20 12:00 Pulse Ox 98 02/16/20 12:00 Intake & Output 02/15/20 02/16/20 02/16/20 18:59 06:59 18:59 Intake Total 720 360 Output Total 850 1900 600 Balance -130 -1900 -240 Intake: Oral 720 360 Output: Urine 850 1900 600 Other: Voiding Method Toilet Toilet # Voids 1 1 1 # Bowel Movements 0 0 - Labs CBC & Chem 7: 02/14/20 15:07 02/16/20 07:13 Labs: Abnormal Lab Results - Last 24 Hours (Table) 02/16/20 Range/Units 07:13 BUN 23 H (9-20) mg/dL Creatinine 1.26 H (0.66-1.25) mg/dL Glucose 100 H (74-99) mg/dL
--- NOTE | 2020-02-16 16:09 | P.PN ---
Subjective Progress Note Date: 02/16/20 Principal diagnosis: This is a 54-year-old gentleman who is followed by Dr. Guerrero on an outpatient basis. He also follows with Dr. Sanders from [facility] on an outpatient basis. He has a past medical history significant for a known thoracic aortic aneurysm which is followed with serial CT scans of the chest, hypertension, hyperlipidemia, CVA in 2018 with no residual right-sided weakness, GERD, kidney stones, congestive heart failure, remote history of smoking depe ndence with smoking in 2018, chronic obstructive pulmonary disease and family history of early onset coronary artery disease with his mother having from a myocardial infarction at age 39. The patient presented to the emergency department here at [facility] yesterday 02/14/2020 with complaints of right upper chest pain which radiated to his right upper back. Denies any complaints of shortness of breath, nausea, diaphoresis, syncope, orthopnea, fever or chills. He reports while watching TV on Friday the 2019 the chest pain came on while at rest. He reports the chest pain has been there since Friday and has had no relief from the chest pain. He states that because of his history of an aneurysm and his ex- recently passing away from an aneurysm he felt like he should be evaluated for the chest pain. A 12- lead EKG was completed in the emergency department which shows normal sinus rhythm without any signs of ischemia with a heart rate of 74 BPM. Initial laboratory results showed a WBC count 9.1, hemoglobin 15.2, platelets 291, INR 0.9, PT 9.7, BUN 16, creatinine 1.46 and serial troponins were negative. A CTA of his chest was completed which was reviewed by Dr. Juan A Carlton from cardiothoracic surgery and it showed an ascending thoracic aortic aneurysm measuring 4.2 cm. Due to the patient's ascending aortic aneurysm a consult was placed to Dr. Juan A Carlton for further evaluation and treatment recommendations. Patient was seen in follow-up today at his bedside on the cardiac stepdown unit. He is awake, alert and oriented 3 and is in no acute apparent distress. Currently he is sitting up to the bedside chair, and reports the chest pain that brought him into the hospital has much improved. Denies any complaints of shortness of breath at this time. Suction saturations are 98% on room air and he remains hemodynamically stable. The patient reports that discharge planning is in place and he expects he will be discharged home within the next 24 hours. Objective - Vital Signs Vital signs: Vital Signs Temp 98.3 F 02/16/20 08:00 Pulse 71 02/16/20 12:00 Resp 16 02/16/20 15:24 BP 114/75 02/16/20 12:00 Pulse Ox 98 02/16/20 12:00 Intake & Output 02/15/20 02/16/20 02/16/20 18:59 06:59 18:59 Intake Total 720 360 Output Total 850 1900 600 Balance -130 -1900 -240 Intake: Oral 720 360 Output: Urine 850 1900 600 Other: Voiding Method Toilet Toilet # Voids 1 1 1 # Bowel Movements 0 0 - Constitutional General appearance: Present: cooperative, morbidly obese, no acute distress - EENT Eyes: Present: edentulous. Absent: scleral icterus ENT: Present: hearing grossly normal - Neck Details: Neck is supple, no lymphadenopathy, no JVD. - Respiratory Details: Lungs sounds essentially clear throughout, diminished to his bilateral bases. Respirations are symmetrical and nonlabored. - Cardiovascular Details: Regular rhythm and rate. S1 and S2 present, negative for S3, gallop or murmur. +1 edema to his bilateral lower extremities. - Gastrointestinal Gastrointestinal Comment(s): Abdomen is soft, nontender and nondistended. Active bowel sounds present in all 4 abdominal quadrants. No guarding or rigidity. Tolerating oral intake. - Genitourinary Genitourinary Comment(s): Continues to void. - Integumentary Integumentary Comment(s): Skin is warm and dry. No clubbing or cyanosis is present. - Neurologic Neurologic: Present: CNII-XII intact - Musculoskeletal Musculoskeletal: Present: gait normal, strength equal bilaterally - Psychiatric Psychiatric: Present: A&O x's 3, appropriate affect, intact judgment & insight - Allied health notes Allied health notes reviewed: nursing - Labs CBC & Chem 7: 02/14/20 15:07 02/16/20 07:13 Labs: Abnormal Lab Results - Last 24 Hours (Table) 02/16/20 Range/Units 07:13 BUN 23 H (9-20) mg/dL Creatinine 1.26 H (0.66-1.25) mg/dL Glucose 100 H (74-99) mg/dL Assessment and Plan Assessment: 1. Chest pain, serial troponins were negative 2. History of ascending aortic aneurysm, followed with serial CT scans on an outpatient basis 3. Acute on chronic diastolic congestive heart failure, lower extremity edema 4. Hypertension 5. Hyperlipidemia 6. Chronic obstructive pulmonary disease 7. History of CVA in 2018 with no residual effects 8. Family history of early onset coronary artery disease with his mom having a myocardial infarction at age 39 9. Remote history of tobacco abuse quit smoking in 2018 Plan: 1. Continue to maximize medical therapy with low-dose aspirin, statin and beta cindy. 2. Strict blood pressure control. Recorded blood pressures at home and keep a log to bring with him to his follow-up appointments. 3. Recommend repeat CT of the chest in 1 year to reevaluate his ascending aortic aneurysm. 4. Medical management and other comorbidities per primary care service and cardiology service. 5. We will continue to follow the patient on an as-needed basis. These feel free to call for any further questions or cardiothoracic surgery needs. Nurse practitioner note has been reviewed by the physician. Signing provider agrees with the above documented findings, assessment and plan of care. The patient was seen and examined. Time with Patient: Greater than 30
[2020-02-16] MEDS: ATORVASTATIN 40 MG TAB PO SCH (20:10)
--- NOTE | 2020-02-16 23:45 | P.PN ---
Subjective Progress Note Date: 02/15/20 patient is a 54-year-old male with a known history of hypertension, hyperlipidemia, osteoarthritis, GERD, COPD and history of TIA and GERD came to ER with complaints of chest pain for the past 3 days. Patient has been having intermittent, dull chest pain but today before coming to the hospital patient fe lt like radiating to the back and to the right shoulder which made him to come to ER. Patient otherwise denied any complaints of nausea vomiting or diaphoresis. No shortness of breath. No headache or dizziness or lightheadedness. Denied any exertional dyspnea. No recent illnesses. No cough or sputum production. No fever no chills. Denies any recent travel. 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 He had stress test and echocardiogram done about 2 months ago. Patient also follows with vascular surgery for his aortic aneurysm. CT thoracic aorta showed ascending thoracic aortic aneurysm measuring 5.0 cm. Abdominal aorta is of normal caliber. No complicating factors noted. Laboratory data showed creatinine 1.46 and troponin x3 - and BNP 90 EKG showed normal sinus rhythm. 02/15/2020 Patient is currently sitting in the chair comfortably. Denied any complaints of chest pain. Patient was started on IV Lasix due to mild CHF exacerbation. CT surgery recommendations are pending. Patient has been afebrile. No headache or dizziness lightheadedness. No other acute overnight issues. Objective - Vital Signs Vital signs: Vital Signs Temp 97.4 F L 02/15/20 16:00 Pulse 70 02/15/20 16:00 Resp 20 02/15/20 16:00 BP 140/73 02/15/20 16:00 Pulse Ox 97 02/15/20 16:00 Intake & Output 02/15/20 02/15/20 02/16/20 06:59 18:59 06:59 Intake Total 720 Output Total 850 Balance -130 Weight 136.2 kg Intake: Oral 720 Output: Urine 850 Other: Voiding Method Toilet # Voids 1 1 # Bowel Movements 0 - Exam PHYSICAL EXAMINATION: Patient is lying in the bed comfortably, no acute distress, awake alert and oriented.. HEENT: Normocephalic. Neck is supple. Pupils reactive. Nostrils clear. Oral cavity is moist. Ears reveal no drainage. Neck reveals no JVD, carotid bruits, or thyromegaly. CHEST EXAMINATION: Trachea is central. Symmetrical expansion. Lung kearney clear to auscultation and percussion. CARDIAC: Normal S1, S2 with no gallops. No murmurs ABDOMEN: Soft. Bowel sounds normal. No organomegaly. No abdominal bruits. Extremities: trace edema. No clubbing or cyanosis Neurologically awake, alert, oriented x3 with well-coordinated movements. No focal deficits noted Skin: No rash or skin lesions. Psychiatric: Coperative. Nonsuicidal Musculoskeletal: No joint swelling or deformity. Normal range of motion. - Labs CBC & Chem 7: 02/14/20 15:07 02/16/20 07:13 Assessment and Plan Assessment: Atypical chest pain. Ruled out ACS. Possible GERD related. Mild CHF exacerbation with diastolic dysfunction. Ascending aortic aneurysm 5.0 cm Hypertension Hyperlipidemia History of TIA with no residual weakness. Previous history of smoking COPD Osteoarthritis History of nephrolithiasis and lithotripsy Morbid obesity with BMI 45.7 DVT prophylaxis with heparin subcu. Plan: Patient will be continued on telemetry monitoring. Serial EKG and troponin x3 - Cardiology is following. Started on Lasix 40 mg twice daily and continue home medications. CT surgery was consulted. Follow-up overnight and further recommendations based on the clinical course. Time with Patient: Greater than 30
--- NOTE | 2020-02-16 23:46 | P.PN ---
Subjective Progress Note Date: 02/16/20 Principal diagnosis: Atypical chest pain. Ruled out ACS. Mild CHF exacerbation with diastolic dysfunction. patient is a 54-year-old male with a known history of hypertension, hy perlipidemia, osteoarthritis, GERD, COPD and history of TIA and GERD came to ER with complaints of chest pain for the past 3 days. Patient has been having intermittent, dull chest pain but today before coming to the hospital patient felt like radiating to the back and to the right shoulder which made him to come to ER. Patient otherwise denied any complaints of nausea vomiting or diaphoresis. No shortness of breath. No headache or dizziness or lightheadedness. Denied any exertional dyspnea. No recent illnesses. No cough or sputum production. No fever no chills. Denies any recent travel. Patient was on follow-up with his cna gna. He had stress test and echocardiogram done about 2 months ago. Patient also follows with vascular surgery for his aortic aneurysm. CT thoracic aorta showed ascending thoracic aortic aneurysm measuring 5.0 cm. Abdominal aorta is of normal caliber. No complicating factors noted. Laboratory data showed creatinine 1.46 and troponin x3 - and BNP 90 EKG showed normal sinus rhythm. 02/15/2020 Patient is currently sitting in the chair comfortably. Denied any complaints of chest pain. Patient was started on IV Lasix due to mild CHF exacerbation. CT surgery recommendations are pending. Patient has been afebrile. No headache or dizziness lightheadedness. No other acute overnight issues. 02/16/2020 Patient is resting in the bed comfortably. Patient states that his breathing is better today. Currently being continued on Lasix [address] surgery recommends no surgical intervention at this time. Measured aortic aneurysm is 4.[address] surgery and recommended repeat CAT scan in 12 months. Laboratory data showed BUN 23 and creatinine 1.26 blood pressure is stable with SBP 120s cardiology is following. Current medications reviewed. Objective - Vital Signs Vital signs: Vital Signs Temp 98.3 F 02/16/20 08:00 Pulse 68 02/16/20 16:58 Resp 16 02/16/20 16:58 BP 126/82 02/16/20 16:00 Pulse Ox 96 02/16/20 16:00 Intake & Output 02/16/20 02/16/20 02/17/20 06:59 18:59 06:59 Intake Total 600 Output Total 1900 600 150 Balance -1900 0 -150 Intake: Oral 600 Output: Urine 1900 600 150 Other: Voiding Method Toilet Toilet # Voids 1 1 # Bowel Movements 0 - Exam PHYSICAL EXAMINATION: Patient is lying in the bed comfortably, no acute distress, awake alert and oriented.. HEENT: Normocephalic. Neck is supple. Pupils reactive. Nostrils clear. Oral cavity is moist. Ears reveal no drainage. Neck reveals no JVD, carotid bruits, or thyromegaly. CHEST EXAMINATION: Trachea is central. Symmetrical expansion. Lung kearney clear to auscultation and percussion. CARDIAC: Normal S1, S2 with no gallops. No murmurs ABDOMEN: Soft. Bowel sounds normal. No organomegaly. No abdominal bruits. Extremities: trace edema. No clubbing or cyanosis Neurologically awake, alert, oriented x3 with well-coordinated movements. No focal deficits noted Skin: No rash or skin lesions. Psychiatric: Coperative. Nonsuicidal Musculoskeletal: No joint swelling or deformity. Normal range of motion. - Labs CBC & Chem 7: 02/14/20 15:07 02/16/20 07:13 Labs: Abnormal Lab Results - Last 24 Hours (Table) 02/16/20 Range/Units 07:13 BUN 23 H (9-20) mg/dL Creatinine 1.26 H (0.66-1.25) mg/dL Glucose 100 H (74-99) mg/dL Assessment and Plan Assessment: Atypical chest pain. Ruled out ACS. Possible GERD related. Mild CHF exacerbation with diastolic dysfunction. Ascending aortic aneurysm 5.0 cm Hypertension Hyperlipidemia History of TIA with no residual weakness. Previous history of smoking COPD Osteoarthritis History of nephrolithiasis and lithotripsy Morbid obesity with BMI 45.7 DVT prophylaxis with heparin subcu. Plan: Patient will be continued on telemetry monitoring. Serial EKG and troponin x3 - Cardiology is following. Started on Lasix 40 mg twice daily and continue home medications. CT surgery was consulted. Follow-up overnight and further recommendations based on the clinical course. Time with Patient: Greater than 30
[2020-02-17] MEDS: HEPARIN SODIUM,PORCINE 5,000 UNIT/ML 1 ML VIAL SQ SCH ×2 (00:27→08:36)
[2020-02-17 05:07] VITALS: TEMP 97.9
[2020-02-17] MEDS: PANTOPRAZOLE 40 MG TABLET PO SCH (06:43)
[2020-02-17] MEDS: TOPIRAMATE 25 MG TAB PO SCH (08:36)
[2020-02-17] MEDS: METOPROLOL SUCCINATE (ER) 50 MG TAB.ER.24H PO SCH (08:36)
[2020-02-17] MEDS: ASPIRIN 81 MG PO SCH (08:36)
[2020-02-17] MEDS: amLODIPine 10 MG TAB PO SCH (08:36)
[2020-02-17] MEDS: FUROSEMIDE 10 MG/ML 4 ML VIAL IV SCH (08:36)
[2020-02-17 09:34] LABS: Calcium 9.2 mg/dL (8.4-10.2); Potassium 3.5 mmol/L (3.5-5.1)
--- NOTE | 2020-02-17 11:18 | P.PN ---
Subjective Progress Note Date: 02/17/20 Principal diagnosis: Atypical chest pain Ascending thoracic aortic aneurysm Acute on chronic kidney injury with GFR of 54 Chronic diastolic heart failure History of CVA in 2018 COPD Dyslipidemia Hypertension hypertensive cardiovascular disease Likely sleep disorder breathing and sleep apnea February 17, 2020, patient seen eval reexamined during the rounds shortness of b reath and chest pain significantly improved, patient is still have significant third spacing and swelling of the lower extremity being diuresed, cardiovascular services following, labs reviewed, COPD appears to be stable and bronchodilator 02/15/2019, patient seen eval reexamined, doing well denies any chest pain no shortness of breath renal function slightly better, oxygen saturation 97% on room air, mechanics is stable, This is a 54-year-old morbidly obese male with extensive history of smoking and nicotine use 1 to half pack per day for about 40 years quit about 2 years ago, patient has a problem with dyspnea on exertion he is morbidly obese also has primary problem associated dyslipidemia hypertension COPD GERD, 2 years ago patient was found to have a dilated aorta/aortic aneurysm which is being monitor observe, computed tomography scan at that time revealed a 5 cm size which is s lightly change compared to baseline, no obvious infiltrate has been noted on computed tomography scan on lungs, patient has been evaluated by cardiovascular services and thoracic surgery, echocardiogram revealed ejection fraction of 60%, RV is mildly enlarged, Objective - Vital Signs Vital signs: Vital Signs Temp 97.9 F 02/17/20 04:00 Pulse 84 02/17/20 08:00 Resp 16 02/17/20 11:10 BP 138/93 02/17/20 08:00 Pulse Ox 95 02/17/20 08:00 Intake & Output 02/16/20 02/17/20 02/17/20 18:59 06:59 18:59 Intake Total 600 360 Output Total 600 1150 200 Balance 0 -1150 160 Weight 132.3 kg Intake: Oral 600 360 Output: Urine 600 1150 200 Other: Voiding Method Toilet Toilet Toilet # Voids 1 2 # Bowel Movements 0 - Exam - Constitutional General appearance: disheveled, morbidly obese, no acute distress - EENT Eyes: PERRLA Ears: bilateral: normal - Neck Neck: normal ROM Carotids: bilateral: upstroke normal - Respiratory Respiratory: bilateral: CTA - Cardiovascular Rhythm: regular Heart sounds: normal: S1, S2 - Gastrointestinal General gastrointestinal: normal bowel sounds - Neurologic Neurologic: CNII-XII intact - Musculoskeletal Musculoskeletal: gait normal, generalized weakness, strength equal bilaterally, +1 edema - Psychiatric Psychiatric: A&O x's 3, appropriate affect, intact judgment & insight - Labs CBC & Chem 7: 02/14/20 15:07 02/17/20 08:34 Labs: Abnormal Lab Results - Last 24 Hours (Table) 02/17/20 Range/Units 08:34 BUN 21 H (9-20) mg/dL Creatinine 1.26 H (0.66-1.25) mg/dL Glucose 150 H (74-99) mg/dL Assessment and Plan Assessment: Atypical chest pain Ascending thoracic aortic aneurysm Acute on chronic kidney injury with GFR of 54 Chronic diastolic heart failure History of CVA in 2018 COPD Dyslipidemia Hypertension hypertensive cardiovascular disease Likely sleep disorder breathing and sleep apnea Plan: Chest pain is atypical, will defer to further evaluation by cardiovascular services, pain has improved to 1-2 out of 10 patient's COPD appears to be stable on as needed bronchodilator will follow clinical course closely agree from pulmonary standpoint for discharge pending further cardiovascular workup continue DVT prophylaxis increase activity as tolerated further plan of care recommendation pending
[2020-02-17 11:37] VITALS: BMI 45.6
[2020-02-17 11:57] VITALS: BP 134/90; PULSE 88
--- NOTE | 2020-02-17 12:29 | P.PN ---
Subjective Progress Note Date: 02/17/20 CHIEF COMPLAINT: chest pain HISTORY OF PRESENT ILLNESS: Patient examined this morning the bedside. He denies chest pain or pressure. Denies shortness of breath. He remains on Lasix 40 mg IV every 12 hours. Creatinine 1.26 today. Fluid balance over the last 24 hours is -1150cc. PHYSICAL EXAM: VITAL SIGNS: Reviewed. GENERAL: Well-developed in no acute distress. HEENT: Head is normocephalic. Pupils are equal, round. Sclerae anicteric. Mucous membranes of the mouth are moist. Neck supple. No JVD or thyromegaly LUNGS: Respirations even and unlabored. Lungs diminished. HEART: Regular rate and rhythm. S1 and S2 heard. ABDOMEN: Soft. Nondistended. Nontender. EXTREMITIES: Normal range of motion. No clubbing or cyanosis. Peripheral pulses intact. 1-2+ bilateral lower extremity edema NEUROLOGIC: Awake and alert. Oriented x 3. ASSESSMENT: Chest pain, troponins negative 3, no evidence of acute coronary syndrome, patient with negative stress test in September 2019 Mild exacerbation of chronic diastolic congestive heart failure with worsening lower extremity edema, EF 55-60% Hypertension Hyperlipidemia Ascending thoracic aortic aneurysm COPD CVA Osteoarthritis PLAN: Continue current cardiac medications Change lasix to oral: 40mg BID Monitor kidney function Daily weights Accurate I&O Patient is stable for discharge from a cardiac perspective. He is to follow up outpatient with Dr. Sanders Nurse practitioner note has been reviewed by physician. Signing provider agrees with the documented findings, assessment, and plan of care. Objective - Vital Signs Vital signs: Vital Signs Temp 97.9 F 02/17/20 04:00 Pulse 88 02/17/20 11:56 Resp 16 02/17/20 11:56 BP 134/90 02/17/20 11:56 Pulse Ox 96 02/17/20 11:56 Intake & Output 02/16/20 02/17/20 02/17/20 18:59 06:59 18:59 Intake Total 600 360 Output Total 600 1150 900 Balance 0 -1150 -540 Weight 132.3 kg 132.3 kg Intake: Oral 600 360 Output: Urine 600 1150 900 Other: Voiding Method Toilet Toilet Toilet # Voids 1 2 # Bowel Movements 0 - Labs CBC & Chem 7: 02/14/20 15:07 11/19/20 08:34 Labs: Abnormal Lab Results - Last 24 Hours (Table) 02/17/20 Range/Units 08:34 BUN 21 H (9-20) mg/dL Creatinine 1.26 H (0.66-1.25) mg/dL Glucose 150 H (74-99) mg/dL
[2020-02-17] MEDS ORDERED: FUROSEMIDE 40 MG TAB PO SCH (16:00)
--- NOTE | 2020-02-18 13:37 | CONS ---
CONSULTATION DATE OF CONSULTATION: 02/15/20 I have seen, examined, and agree with the midlevel's findings. MMODL / IJN: [id number] / Job#: [id number]
--- NOTE | 2020-02-20 13:44 | CDI ---
Documentation Clarification Form Date: 02/20/20 From: Carly Landis CCS Phone: If you have a question about this query, please contact Gabriela Medellin, Occupational Therapy Aide at [phone] between 8am and 5pm. Admit Date: 02/14/20 Discharge Date:02/17/20 Patient Name: Serg Rhodes Visit Number: [id number] ATTENTION: The Clinical Documentation Specialists (CDI) and [facility] Coding Staff appreciate your assistance in clarifying documentation. Please respond to the clarification below the line at the bottom and electronically sign. The CDI & [facility] Coding staff will review the response and follow-up if needed. Please note: Queries are made part of the Legal Health Record. If you have any questions, please contact the author of this message via ITS. Dear Dr. Gonzalez, CKD is documented in the 02/14 Consult, PNs. Acute on chronic kidney injury with GFR of 54 History/Risk Factors: CHF, HTN, Morbid Obesity / BMI 45, COPD Clinical Indicators: Acute on chronic kidney injury Current BUN: 16, 23, 21 CR: 1.46, 1.26 GFR: 54, 64 Treatment: Monitor Consult: Jevon In order to capture the severity of condition, please clarify the stage of the CKD, if known: CKD Stage 1 (GFR > 90) CKD Stage 2 (GFR 60-89) CKD Stage 3a (GFR 45-59) CKD Stage 3b (GFR 30-44) CKD Stage 4 (GFR 15-29) CKD Stage 5 (GFR <15) ESRD Other, please specify Unable to determine CKD Stage 3a (GFR 45-59) MTDD
--- NOTE | 2020-02-20 13:57 | CDI ---
Documentation Clarification Form Date: 02/20/20 From: Carly Landis CCS Phone: If you have a question about this query, please contact Gabriela Medellin, Pediatric Nurse at [phone] between 8am and 5pm. Admit Date: 02/14/20 Discharge Date:02/17/20 Patient Name: Serg Rhodes Visit Number: [id number] ATTENTION: The Clinical Documentation Specialists (CDI) and [facility] Coding Staff appreciate your assistance in clarifying documentation. Please respond to the clarification below the line at the bottom and electronically sign. The CDI & [facility] Coding staff will review the response and follow-up if needed. Please note: Queries are made part of the Legal Health Record. If you have any questions, please contact the author of this message via ITS. Dear Dr. Gonzalez, Chest pain is documented in the H&P, PNs, ED, Consult. PNs document: Chest pain, troponins negative 3, no evidence of acute coronary syndrome, patient with negative stress test in September 2019 H&P documents: Atypical chest pain.Ruled out ACS.Possible GERD related. Patient C/O: Chest Pain History/Risk factors: GERD, CHF, HTN, Ascending aorta aneurysm, Sleep apnea Clinical Indicators: Chest pain, Exacerbation diastolic CHF Treatment: Lasix IV 40 mg, Morphine 4 mg IV, Narcan 0.2 mg IV, Protonix 40 mg PO Other: Home med changes-PO Lasix discontinue 20mg add 40 mg Lasix PO, New home med Protonix 40 mg PO Consults: Jevon Mcclellan In your professional opinion, can please clarify if the chest pain signifies, or is due to: Chest wall pain Hypertensive heart disease GERD Psychogenic chest pain Other condition, please specify Unable to determine Unable to determine MTDD
== END 2020-02-17 14:45 | disposition home or self-care (01) ==
LOC: EC 14:34 → 3SCARD 16:50 → INTOOBSV 16:50 → 3SCARD 17:42 → UNDODISIN 02-17 14:45
PROVIDERS: ADMIT Internal Medicine; ATTEND Internal Medicine
DX: R07.89 Other chest pain (principal); I71.2 Thoracic aortic aneurysm, without rupture; J44.9 Chronic obstructive pulmonary disease, unspecified; I13.0 Hypertensive heart and chronic kidney disease with heart failure and stage 1 through stage 4 chronic kidney disease, or unspecified chronic kidney disease; N18.9 Chronic kidney disease, unspecified; I50.33 Acute on chronic diastolic (congestive) heart failure; N17.9 Acute kidney failure, unspecified; Z86.73 Personal history of transient ischemic attack (TIA), and cerebral infarction without residual deficits; K21.9 Gastro-esophageal reflux disease without esophagitis; E78.5 Hyperlipidemia, unspecified; M19.90 Unspecified osteoarthritis, unspecified site; Z87.442 Personal history of urinary calculi; Z90.49 Acquired absence of other specified parts of digestive tract; Z98.890 Other specified postprocedural states; Z87.891 Personal history of nicotine dependence; Z82.49 Family history of ischemic heart disease and other diseases of the circulatory system; Z83.3 Family history of diabetes mellitus; Z82.3 Family history of stroke; E66.01 Morbid (severe) obesity due to excess calories; Z68.42 Body mass index [BMI] 45.0-49.9, adult; Z79.1 Long term (current) use of non-steroidal anti-inflammatories (NSAID); Z79.82 Long term (current) use of aspirin; Z79.899 Other long term (current) drug therapy; Z88.5 Allergy status to narcotic agent; Z88.8 Allergy status to other drugs, medicaments and biological substances; I08.1 Rheumatic disorders of both mitral and tricuspid valves
CPT/HCPCS: 96376 ×3; 96372 ×4; 96374; 99285; 36415; 93005; 83880; 80053; 80048 ×2; 83690; 83735; 84484; 85025; 85610; 85730; 71275; 74174; G0378 ×4; C8929; J1644 ×4; J1940 ×3; Q9950; Q9967; 93306

== ENCOUNTER → 2020-04-26 | Outpatient (CLI) | payer OTHER ==
--- NOTE | 2020-04-26 13:07 | XR ---
Lumbar spine HISTORY: Chronic low back pain 3 views lumbar spine There is multilevel spondylosis. Minimal retrolisthesis grade 1 L4-5. Loss of disc height is present L3-4, L4-5 and L5-S1, there is associated vacuum phenomenon. Lumbar vertebral bodies show preserved h eight. Bone mineralization is normal. Sclerosis present in the posterior elements. IMPRESSION: Degenerative disc disease and facet arthropathy.
== END | disposition home or self-care (01) ==
LOC: RADXRMAIN 10:14
PROVIDERS: ATTEND Internal Medicine
DX: M51.36 Other intervertebral disc degeneration, lumbar region (principal); M47.816 Spondylosis without myelopathy or radiculopathy, lumbar region
CPT/HCPCS: 72100

== ENCOUNTER → 2020-04-26 | Outpatient (CLI) | payer OTHER ==
[2020-04-26 17:41] LABS: Albumin 4.8 g/dL (3.80-4.90); Albumin/Globulin Ratio 2.29 (1.60-3.17); Anion Gap 7.2 mmol/L (4.00-12.00); BUN/Creat Ratio 14.17 Ratio (12.00-20.00); Calcium 9.3 mg/dL (8.7-10.3); Carbon Dioxide 30.8 mmol/L (21.6-31.8); Chol/HDL Ratio 5.54; Globulin 2.1 g/dL (1.6-3.3); LDL Cholesterol,Calculated 97.2 mg/dL (0.0-131.0); Non-African American GFR(CKD) 68.1 (60.0-200.0); Potassium 4.3 mmol/L (3.5-5.5); Total Bilirubin 0.6 mg/dL (0.2-1.2); Total Protein 6.9 g/dL (6.2-8.2); VLDL Calculation 70.8 mg/dL (5.00-40.00)
== END | disposition home or self-care (01) ==
LOC: LABWHC1 09:46
PROVIDERS: ATTEND Internal Medicine Interventional Cardiology
DX: E78.2 Mixed hyperlipidemia (principal)
CPT/HCPCS: 36415; 80053; 80061

== ENCOUNTER → 2020-08-15 | Outpatient (CLI) | payer OTHER ==
[2020-08-15 18:19] LABS: African American GFR (CKD) 87.1 (60.0-200.0); Albumin 4.8 g/dL (3.80-4.90); Albumin/Globulin Ratio 1.92 (1.60-3.17); Anion Gap 12.9 mmol/L (4.00-12.00); BUN/Creat Ratio 14.55 Ratio (12.00-20.00); Calcium 9.8 mg/dL (8.7-10.3); Carbon Dioxide 30.1 mmol/L (21.6-31.8); Chol/HDL Ratio 4.22; Globulin 2.5 g/dL (1.6-3.3); LDL Cholesterol,Calculated 81.6 mg/dL (0.0-131.0); Non-African American GFR(CKD) 75.2 (60.0-200.0); Potassium 3.6 mmol/L (3.5-5.5); Total Bilirubin 0.6 mg/dL (0.2-1.2); Total Protein 7.3 g/dL (6.2-8.2); VLDL Calculation 34.4 mg/dL (5.00-40.00)
== END | disposition home or self-care (01) ==
LOC: LABWHC1 10:10
PROVIDERS: ATTEND Internal Medicine Interventional Cardiology
DX: E78.2 Mixed hyperlipidemia (principal)
CPT/HCPCS: 36415; 80053; 80061

== ENCOUNTER 2020-09-19 13:36 | Observation (INO) | payer OTHER ==
[2020-09-19] MEDS ORDERED: NITROGLYCERIN OINT 1 INCH/GM PACKET TOPICAL STA (14:11)
[2020-09-19] MEDS ORDERED: ASPIRIN 81 MG PO STA (14:11)
--- NOTE | 2020-09-19 14:18 | ED ---
General Adult HPI - General Chief complaint: Chest Pain Stated complaint: Racing heart,Dizzy Time Seen by Provider: 09/19/20 13:45 Source: patient, RN notes reviewed, old records reviewed Mode of arrival: ambulatory Limitations: no limitations - History of Present Illness Initial comments: This a 55-year-old male who presents emergency department with past medical history significant for high blood pressure and high cholesterol and a history of smoking but he did quit 3 years ago. Patient also states that he is strong family history of heart disease. Patient states the last 3-4 days he's been having intermittent chest pain associated shortness of breath and some dizziness as well. Primary medical care doctor sent him in the emergency department. Patient states he also has a 4.2 thoracic aneurysm that they're just watching. Patient states currently he is in no pain at all. Patient states he does still feel a little short of breath but at his baseline he always feels short of breath. Patient denies any recent fever chills or cough per patient denies any abdominal pain patient denies nausea vomiting diarrhea. Patient denies any swel ling to the legs or calf tenderness. - Related Data Home Medications Medication Instructions Recorded Confirmed Metoprolol Succinate (ER) [Toprol 50 mg PO BID 04/15/18 02/14/20 XL] Aspirin [Adult Low Dose Aspirin EC] 81 mg PO DAILY 10/09/18 02/14/20 Atorvastatin [Lipitor] 40 mg PO HS 10/13/19 02/14/20 Topiramate [Topamax] 25 mg PO BID 10/13/19 02/14/20 amLODIPine [Norvasc] 10 mg PO DAILY 10/13/19 02/14/20 tiZANidine [Zanaflex] 4 mg PO HS PRN 10/13/19 02/14/20 Acetaminophen [Tylenol Extra 500 mg PO BID 02/14/20 02/14/20 Strength] Albuterol Sulfate [Albuterol 1 puff PO RT-BID PRN 02/14/20 02/14/20 Sulfate Hfa] Simethicone [Gas-X] 125 mg PO BID 02/14/20 02/14/20 Previous Rx's Medication Instructions Recorded Furosemide [Lasix] 40 mg PO BID #60 tablet 02/17/20 Pantoprazole [Protonix] 40 mg PO AC-BRKFST 30 Days #30 02/17/20 tablet. Allergies Allergy/AdvReac Type Severity Reaction Status Date / Time hydrocodone [From [place]] AdvReac Nausea, Verified 09/19/20 13:45 light headed ranitidine HCl [From Zantac] AdvReac Nausea & Verified 09/19/20 13:45 Vomiting Review of Systems ROS Statement: Those systems with pertinent positive or pertinent negative responses have been documented in the HPI. ROS Other: All systems not noted in ROS Statement are negative. Past Medical History Past Medical History: Chest Pain / Angina, COPD, CVA/TIA, GERD/Reflux, Hyperlipidemia, Hypertension, Osteoarthritis (OA) Additional Past Medical History / Comment(s): HX OF KIDNEY STONES, TIA. STATES HE HAS AN ANEURYSM ON THE HEART AND IT IS BEING MONITORED BY A SOD FARMER. History of Any Multi-Drug Resistant Organisms: None Reported Past Surgical History: Cholecystectomy, Hernia Repair Additional Past Surgical History / Comment(s): 06/08/18 INCARCERATED INCISIONAL HERNIA (2) THREE OTHER HERNIA SURGERY. SURGERY X4. Lithotripsy, Past Anesthesia/Blood Transfusion Reactions: No Reported Reaction Past Psychological History: No Psychological Hx Reported Smoking Status: Former smoker Past Alcohol Use History: None Reported Past Drug Use History: None Reported - Past Family History Mother Family Medical History: Coronary Artery Disease (CAD), Diabetes Mellitus Additional Family Medical History / Comment(s): Past away at age 39 from myocardial infarction Father Family Medical History: CVA/TIA, Hypertension General Exam - General Exam Comments Initial Comments: GENERAL: Patient is well-developed and well-nourished. Patient is nontoxic and well- hydrated and is in mild distress. ENT: Neck is soft and supple. No significant lymphadenopathy is noted. Oropharynx is clear. Moist mucous membranes. Neck has full range of motion without eliciting any pain. were felt. EYES: The sclera were anicteric and conjunctiva were pink and moist. Extraocular movements were intact and pupils were equal round and reactive to light. Eyelids were unremarkable. PULMONARY: Unlabored respirations. Good breath sounds bilaterally. No audible rales rhonchi or wheezing was noted. CARDIOVASCULAR: There is a regular rate and rhythm without any murmurs gallops or rubs. ABDOMEN: Soft and nontender with normal bowel sounds. No palpable organomegaly was noted. There is no palpable pulsatile mass. SKIN: Skin is clear with no lesions or rashes and otherwise unremarkable. NEUROLOGIC: Patient is alert and oriented x3. Cranial nerves II through XII are grossly intact. Motor and sensory are also intact. Normal speech, volume and content. Symmetrical smile. MUSCULOSKELETAL: Normal extremities with adequate strength and full range of motion. No lower extremity swelling or edema. No calf tenderness. LYMPHATICS: No significant lymphadenopathy is noted PSYCHIATRIC: Normal psychiatric evaluation. Limitations: no limitations Course Vital Signs 09/19/20 09/19/20 09/19/20 13:45 13:55 15:00 Temperature 97.9 F 97.9 F Pulse Rate 106 H 106 H 92 Respiratory 16 16 16 Rate Blood Pressure 150/89 129/87 114/82 O2 Sat by Pulse 98 98 95 Oximetry 09/19/20 15:33 Temperature Pulse Rate 93 Respiratory 18 Rate Blood Pressure 114/82 O2 Sat by Pulse 96 Oximetry Medical Decision Making - Medical Decision Making EKG shows normal sinus rhythm at 90 bpm OH interval is 146 dresses 92 QT interval 324 QTC is 413. Patient's EKG shows no ST segment elevation Chest x-ray shows no acute abnormality. Patient states she's had intermittent chest pain while in the emergency department. Patient received Afrin Nitropaste and heparin in the emergency department and continue that on the floor. I spoke with Dr. Marin he agreed to admit the patient admitted the patient wrote admitting orders and consult cardiology. - Lab Data Result diagrams: 09/19/20 14:00 09/19/20 14:00 Lab Results 09/19/20 09/19/20 09/19/20 Range/Units 14:00 14:00 14:00 WBC 8.4 (3.8-10.6) k/uL RBC 5.20 (4.30-5.90) m/uL Hgb 15.3 (13.0-17.5) gm/dL Hct 42.8 (39.0-53.0) % MCV 82.3 (80.0-100.0) fL MCH 29.4 (25.0-35.0) pg MCHC 35.7 (31.0-37.0) g/dL RDW 13.3 (11.5-15.5) % Plt Count 313 (150-450) k/uL MPV 7.9 Neutrophils % 60 % Lymphocytes % 27 % Monocytes % 6 % Eosinophils % 3 % Basophils % 1 % Neutrophils # 5.1 (1.3-7.7) k/uL Lymphocytes # 2.3 (1.0-4.8) k/uL Monocytes # 0.5 (0-1.0) k/uL Eosinophils # 0.2 (0-0.7) k/uL Basophils # 0.1 (0-0.2) k/uL PT 9.9 (9.0-12.0) sec INR 0.9 (<1.2) APTT 25.7 (22.0-30.0) sec D-Dimer (<0.60) mg/L FEU Sodium 139 (137-145) mmol/L Potassium 3.4 L (3.5-5.1) mmol/L Chloride 96 L (98-107) mmol/L Carbon Dioxide 31 H (22-30) mmol/L Anion Gap 12 mmol/L BUN 11 (9-20) mg/dL Creatinine 1.01 (0.66-1.25) mg/dL Est GFR (CKD-EPI)AfAm >90 (>60 ml/min/1.73 sqM) Est GFR (CKD-EPI)NonAf 84 (>60 ml/min/1.73 sqM) Glucose 105 H (74-99) mg/dL Calcium 9.6 (8.4-10.2) mg/dL Magnesium 1.7 (1.6-2.3) mg/dL Total Bilirubin 0.7 (0.2-1.3) mg/dL AST 46 (17-59) U/L ALT 37 (4-49) U/L Alkaline Phosphatase 118 (38-126) U/L Troponin I (0.000-0.034) ng/mL Total Protein 8.4 H (6.3-8.2) g/dL Albumin 5.0 (3.5-5.0) g/dL 09/19/20 09/19/20 Range/Units 14:00 14:00 WBC (3.8-10.6) k/uL RBC (4.30-5.90) m/uL Hgb (13.0-17.5) gm/dL Hct (39.0-53.0) % MCV (80.0-100.0) fL MCH (25.0-35.0) pg MCHC (31.0-37.0) g/dL RDW (11.5-15.5) % Plt Count (150-450) k/uL MPV Neutrophils % % Lymphocytes % % Monocytes % % Eosinophils % % Basophils % % Neutrophils # (1.3-7.7) k/uL Lymphocytes # (1.0-4.8) k/uL Monocytes # (0-1.0) k/uL Eosinophils # (0-0.7) k/uL Basophils # (0-0.2) k/uL PT (9.0-12.0) sec INR (<1.2) APTT (22.0-30.0) sec D-Dimer 0.29 (<0.60) mg/L FEU Sodium (137-145) mmol/L Potassium (3.5-5.1) mmol/L Chloride (98-107) mmol/L Carbon Dioxide (22-30) mmol/L Anion Gap mmol/L BUN (9-20) mg/dL Creatinine (0.66-1.25) mg/dL Est GFR (CKD-EPI)AfAm (>60 ml/min/1.73 sqM) Est GFR (CKD-EPI)NonAf (>60 ml/min/1.73 sqM) Glucose (74-99) mg/dL Calcium (8.4-10.2) mg/dL Magnesium (1.6-2.3) mg/dL Total Bilirubin (0.2-1.3) mg/dL AST (17-59) U/L ALT (4-49) U/L Alkaline Phosphatase (38-126) U/L Troponin I <0.012 (0.000-0.034) ng/mL Total Protein (6.3-8.2) g/dL Albumin (3.5-5.0) g/dL Critical Care Time Critical Care Time: Yes Total Critical Care Time: 35 Disposition Clinical Impression: Unstable angina Disposition: ADMITTED IP TO THIS HOSP Referrals: Yahir Marin MD [Primary Care Provider] - 1-2 days Time of Disposition: 16:04
[2020-09-19 14:30] LABS: Basophils # (A) 0.1 k/uL (0-0.2); Basophils % (A) 1 %; Eosinophils # (A) 0.2 k/uL (0-0.7); Eosinophils % (A) 3 %; HCT 42.8 % (39.0-53.0); HGB 15.3 gm/dL (13.0-17.5); Lymphocytes # (A) 2.3 k/uL (1.0-4.8); Lymphocytes % (A) 27 %; MCH 29.4 pg (25.0-35.0); MCHC 35.7 g/dL (31.0-37.0); MCV 82.3 fL (80.0-100.0); Mean Platelet Volume 7.9; Monocytes # (A) 0.5 k/uL (0-1.0); Monocytes % (A) 6 %; Neutrophils # (A) 5.1 k/uL (1.3-7.7); Neutrophils % (A) 60 %; Platelet Count 313 k/uL (150-450); RDW 13.3 % (11.5-15.5); WBC 8.4 k/uL (3.8-10.6)
--- NOTE | 2020-09-19 14:49 | XR ---
EXAMINATION TYPE: XR chest 2V DATE OF EXAM: 09/19/2020 COMPARISON: Chest x-ray 10/13/2019 HISTORY: Chest pain TECHNIQUE: Frontal and lateral views of the chest are obtained. FINDINGS: Lung volumes are low. Right hemidiaphragm mildly elevated as on prior. There are overlying leads. There is no focal air space opacity, pleural effusion, or pneumothorax seen. The cardiac silh ouette size is within normal limits. The osseous structures are intact. IMPRESSION: No acute cardiopulmonary process.
[2020-09-19 14:56] LABS: ALT 37 U/L (4-49); AST 46 U/L (17-59); African American GFR (CKD) >90 (>60 ml/min/1.73 sqM); Alkaline Phosphatase 118 U/L (38-126); Anion Gap 12 mmol/L; Blood Urea Nitrogen 11 mg/dL (9-20); Calcium 9.6 mg/dL (8.4-10.2); Carbon Dioxide 31 mmol/L (22-30); Chloride 96 mmol/L (98-107); Glucose 105 mg/dL (74-99); Magnesium 1.7 mg/dL (1.6-2.3); Non-African American GFR(CKD) 84 (>60 ml/min/1.73 sqM); Sodium 139 mmol/L (137-145); Total Bilirubin 0.7 mg/dL (0.2-1.3); Total Protein 8.4 g/dL (6.3-8.2)
[2020-09-19 15:02] LABS: INR 0.9 (<1.2); Partial Thromboplastin Time 25.7 sec (22.0-30.0); Prothrombin Time 9.9 sec (9.0-12.0)
[2020-09-19 15:09] LABS: Potassium 3.4 mmol/L (3.5-5.1)
[2020-09-19] MEDS ORDERED: NITROGLYCERIN SL TABS 0.4 MG TAB SUBLINGUAL PRN (16:05)
[2020-09-19] MEDS ORDERED: tiZANidine 4 MG TAB PO PRN (18:53)
[2020-09-19] MEDS ORDERED: ACETAMINOPHEN TAB 500 MG TAB PO PRN (18:53)
[2020-09-19] MEDS ORDERED: ALBUTEROL NEBULIZED 2.5 MG/3 ML INHALATION PRN (18:53)
[2020-09-19] MEDS: NITROGLYCERIN OINT 1 INCH/GM PACKET TOPICAL SCH ×2 (19:30→22:59)
[2020-09-19] MEDS ORDERED: ATORVASTATIN 40 MG TAB PO SCH (21:00)
[2020-09-19] MEDS: METOPROLOL SUCCINATE (ER) 50 MG TAB.ER.24H PO SCH (21:04)
[2020-09-19] MEDS: LOSARTAN 50 MG TAB PO SCH (21:04)
[2020-09-19] MEDS: TOPIRAMATE 25 MG TAB PO SCH (21:17)
[2020-09-19] MEDS: HEPARIN SODIUM,PORCINE/PF 5,000 UNIT/0.5 ML SYRINGE SQ SCH (22:59)
[2020-09-20 03:13] VITALS: RESP 20
[2020-09-20] MEDS ORDERED: PANTOPRAZOLE 40 MG TABLET PO SCH (07:30)
[2020-09-20 07:49] VITALS: TEMP 97.8
--- NOTE | 2020-09-20 08:57 | P.CRDCN ---
History of Present Illness History of present illness: HISTORY OF PRESENTING ILLNESS This is a pleasant -year-old with past medical history significant for hypertension, hyperlipidemia, thoracic aortic aneurysm, obesity, Chronic venous insufficiency with lower extremity edema, questionable heart failure being placed on Lasix, GERD who presents secondary to off and on chest pain or last 3 days. Patient states that normally the chest pain will occur and feel like a pressure in the substernal area associated with some diaphoresis and shortness breath. Usually only last for 20-30 seconds. It has been happening a few times every minute. Patient was at doctor's office with family member and the doctor noticed that he was not feeling well and therefore recommended going to emergency department. Patient has had previous workups in the past with most recent dobutamine stress echo from 09/2019 which showed no inducible ischemia. Patient also has had CAT scans with most recent showing what appeared to be increase in thoracic aortic aneurysm to 5.0 cm however patient states he followed up with vascular surgeon and had a repeat CAT scan at [facility] which showed stable 4.2 cm. He was placed on nitroglycerin paste and since that time has not had any further chest pain. Denies any association with activity. Reviewed with white blood cell count 8.4, hemoglobin 15.3, d-dimer 0.29, potassium 3.4, BUN 11, creatinine 1.0, troponin 0.012, coronavirus not detected. EKG normal sinus rhythm. He follows in the office with Dr. Sanders. REVIEW OF SYSTEMS At the time of my exam: CONSTITUTIONAL: Denies fever or chills. CARDIOVASCULAR: + chest pain, +shortness of breath, no orthopnea, PND or palpitations. RESPIRATORY: Denies cough. GASTROINTESTINAL: Denies abdominal pain, diarrhea, constipation, nausea or vomiting. MUSCULOSKELETAL: Denies myalgias. NEUROLOGIC: Denies numbness, tingling or weakness. ENDOCRINE: Denies fatigue, weight change, polydipsia or polyurina. GENITOURINARY: Denies burning, hematuria or urgency with micturation. HEMATOLOGIC: Denies history of anemia or bleeding. PHYSICAL EXAMINATION Vital signs reviewed. CONSTITUTIONAL: No apparent distress, obese HEENT: Head is normocephalic. Pupils are equal, round. Sclerae anicteric. Mucous membranes of the mouth are moist. No JVD. No carotid bruit. CHEST EXAMINATION: Lungs are clear to auscultation. No chest wall tenderness is noted on palpation or with deep breathing. HEART EXAMINATION: Regular rate and rhythm. S1, S2 heard. No murmurs, gallops or rub. ABDOMEN: Soft, nontender. Positive bowel sounds. EXTREMITIES: 2+ peripheral pulses, no lower extremity edema and no calf tenderness. NEUROLOGIC EXAMINATION: Patient is awake, alert and oriented x3. ASSESSMENT 1. Atypical chest pain 2. Obesity 3. Hypertension 4. Hyperlipidemia 5. Chronic venous insufficiency 6. Questionable history of heart failure, recently increased on Lasix. Likely more related to venous insufficiency which has improved with compression stockings and keeping legs elevated. PLAN Patient with somewhat atypical pain only lasted for 20-30 seconds not associated with any exertion. It did however appear to improve with a nitroglycerin and he has not had any further recurrence. It also was associated with some shortness breath and diaphoresis. Troponins negative and EKG unrevealing. Check 2-D echo and check exercise stress echo if patient able to exercise treadmill as he would prefer to do this. If both are unrevealing patient may be discharged home. Low likelihood of any dissection given low d-dimer. Per patient CT at [facility] showed stable thoracic aortic aneurysm. Past Medical History Past Medical History: Chest Pain / Angina, COPD, CVA/TIA, GERD/Reflux, Hyperlipidemia, Hypertension, Osteoarthritis (OA) Additional Past Medical History / Comment(s): HX OF KIDNEY STONES, TIA. STATES HE HAS AN ANEURYSM ON THE HEART AND IT IS BEING MONITORED BY A SHREDDER TENDER. History of Any Multi-Drug Resistant Organisms: None Reported Past Surgical History: Cholecystectomy, Hernia Repair Additional Past Surgical History / Comment(s): 06/08/18 INCARCERATED INCISIONAL HERNIA (2) THREE OTHER HERNIA SURGERY. SURGERY X4. Lithotripsy, Past Anesthesia/Blood Transfusion Reactions: No Reported Reaction Past Psychological History: No Psychological Hx Reported Smoking Status: Former smoker Past Alcohol Use History: None Reported Additional Past Alcohol Use History / Comment(s): STARTED SMOKING SMOKING AT AGE 12 QUIT AT JAN 2018 SMOKED 1PPD. Past Drug Use History: None Reported Additional Drug Use History / Comment(s): . - Past Family History Mother Family Medical History: Coronary Artery Disease (CAD), Diabetes Mellitus Additional Family Medical History / Comment(s): Past away at age 39 from myocardial infarction Father Family Medical History: CVA/TIA, Hypertension Medications and Allergies Home Medications Medication Instructions Recorded Confirmed Type Metoprolol Succinate (ER) [Toprol 50 mg PO BID 04/15/18 09/19/20 History XL] Atorvastatin [Lipitor] 40 mg PO HS 10/13/19 09/19/20 History Topiramate [Topamax] 25 mg PO BID 10/13/19 09/19/20 History amLODIPine [Norvasc] 10 mg PO DAILY 10/13/19 09/19/20 History tiZANidine [Zanaflex] 4 mg PO HS PRN 10/13/19 09/19/20 History Acetaminophen [Tylenol Extra 500 mg PO Q8H PRN 02/14/20 09/19/20 History Strength] Albuterol Sulfate [Albuterol 2 puff PO RT-Q6H PRN 02/14/20 09/19/20 History Sulfate Hfa] Furosemide [Lasix] 40 mg PO BID #60 tablet 02/17/20 09/19/20 Rx Pantoprazole [Protonix] 40 mg PO AC-BRKFST 30 Days #30 02/17/20 09/19/20 Rx tablet. Ezetimibe [Zetia] 10 mg PO DAILY 09/19/20 09/19/20 History Hydrochlorothiazide 12.5 mg PO DAILY 09/19/20 09/19/20 History [hydroCHLOROthiazide] Losartan Potassium 50 mg PO BID 09/19/20 09/19/20 History Allergies Allergy/AdvReac Type Severity Reaction Status Date / Time hydrocodone [From [place]] AdvReac Nausea, Verified 09/19/20 16:56 light headed ranitidine HCl [From Zantac] AdvReac Nausea & Verified 09/19/20 16:56 Vomiting Physical Exam Vitals: Vital Signs Temp Pulse Pulse Resp BP BP BP 09/20/20 07:00 97.8 F 70 20 09/20/20 01:06 98.6 F 60 20 98/64 95/59 09/19/20 20:55 97.9 F 89 16 09/19/20 19:22 84 18 119/79 09/19/20 18:04 89 18 107/76 09/19/20 17:00 81 16 102/76 09/19/20 15:33 93 18 114/82 09/19/20 15:00 92 16 114/82 09/19/20 13:55 97.9 F 106 H 16 129/87 09/19/20 13:45 97.9 F 106 H 16 150/89 BP BP Pulse Ox 09/20/20 07:00 115/73 96 09/20/20 01:06 84/51 94 L 09/19/20 20:55 123/84 97 09/19/20 19:22 95 09/19/20 18:04 95 09/19/20 17:00 95 09/19/20 15:33 96 09/19/20 15:00 95 09/19/20 13:55 98 09/19/20 13:45 98 Intake and Output 09/19/20 09/20/20 09/20/20 22:59 06:59 14:59 Other: Voiding Method Toilet Toilet Toilet # Voids 1 1 Weight 131.542 kg Results 09/19/20 14:00 09/19/20 14:00 Cardiac Enzymes 09/19/20 09/19/20 09/19/20 Range/Units 14:00 14:00 17:17 AST 46 (17-59) U/L Troponin I <0.012 <0.012 (0.000-0.034) ng/mL 09/19/20 Range/Units 20:18 AST (17-59) U/L Troponin I <0.012 (0.000-0.034) ng/mL Coagulation 09/19/20 Range/Units 14:00 PT 9.9 (9.0-12.0) sec APTT 25.7 (22.0-30.0) sec CBC 09/19/20 Range/Units 14:00 WBC 8.4 (3.8-10.6) k/uL RBC 5.20 (4.30-5.90) m/uL Hgb 15.3 (13.0-17.5) gm/dL Hct 42.8 (39.0-53.0) % Plt Count 313 (150-450) k/uL Comprehensive Metabolic Panel 09/19/20 Range/Units 14:00 Sodium 139 (137-145) mmol/L Potassium 3.4 L (3.5-5.1) mmol/L Chloride 96 L (98-107) mmol/L Carbon Dioxide 31 H (22-30) mmol/L BUN 11 (9-20) mg/dL Creatinine 1.01 (0.66-1.25) mg/dL Glucose 105 H (74-99) mg/dL Calcium 9.6 (8.4-10.2) mg/dL AST 46 (17-59) U/L ALT 37 (4-49) U/L Alkaline Phosphatase 118 (38-126) U/L Total Protein 8.4 H (6.3-8.2) g/dL Albumin 5.0 (3.5-5.0) g/dL Current Medications Generic Name Dose Route Start Last Admin Trade Name Freq PRN Reason Stop Dose Admin Acetaminophen 500 mg 09/19/20 18:53 09/19/20 21:04 Acetaminophen Tab 500 Mg Tab PO 500 mg Q8H PRN Administration Pain Albuterol Sulfate 2.5 mg 09/19/20 18:53 Albuterol Nebulized 2.5 Mg/3 Ml INHALATION RT-Q6H PRN Shortness Of Breath Amlodipine Besylate 10 mg 09/20/20 09:00 Amlodipine 10 Mg Tab PO DAILY [facility] Aspirin 325 mg 09/20/20 09:00 Aspirin 325 Mg Tab PO DAILY [facility] Atorvastatin Calcium 40 mg 09/19/20 21:00 09/19/20 21:03 Atorvastatin 40 Mg Tab PO 40 mg HS YOVANA Administration Ezetimibe 10 mg 09/20/20 09:00 Ezetimibe 10 Mg Tab PO DAILY [facility] Furosemide 40 mg 09/20/20 09:00 Furosemide 40 Mg Tab PO BID@0900,1600 [facility] Heparin Sodium (Porcine) 5,000 unit 09/20/20 00:00 09/19/20 22:59 Heparin Sodium,Porcine/Pf 5,000 Unit/0.5 Ml Syringe SQ Not Given Q8HR [facility] Losartan Potassium 50 mg 09/19/20 21:00 09/19/20 21:04 Losartan 50 Mg Tab PO 50 mg BID YOVANA Administration Metoprolol Succinate 50 mg 09/19/20 21:00 09/19/20 21:04 Metoprolol Succinate (Er) 50 Mg Tab.Er.24h PO 50 mg BID YOVANA Administration Nitroglycerin 0.4 mg 09/19/20 16:05 Nitroglycerin Sl Tabs 0.4 Mg Tab SUBLINGUAL Q5M PRN Chest Pain Nitroglycerin 1 inch 09/19/20 18:00 09/19/20 22:59 Nitroglycerin Oint 1 Inch/Gm Packet TOPICAL Not Given Q6HR [facility] Pantoprazole Sodium 40 mg 09/20/20 07:30 Pantoprazole 40 Mg Tablet PO AC-BRKFST [facility] Tizanidine HCl 4 mg 09/19/20 18:53 Tizanidine 4 Mg Tab PO HS PRN Muscle Spasm Topiramate 25 mg 09/19/20 21:00 09/19/20 21:17 Topiramate 25 Mg Tab PO 25 mg BID [facility] Administration Intake and Output 09/19/20 09/20/20 09/20/20 22:59 06:59 14:59 Other: Voiding Method Toilet Toilet Toilet # Voids 1 1 Weight 131.542 kg 09/19/20 14:00 09/19/20 14:00
[2020-09-20] MEDS ORDERED: hydroCHLOROthiazide 12.5 MG CAP PO SCH (09:00)
[2020-09-20] MEDS ORDERED: FUROSEMIDE 40 MG TAB PO SCH (09:00)
[2020-09-20] MEDS ORDERED: amLODIPine 10 MG TAB PO SCH (09:00)
[2020-09-20] MEDS ORDERED: EZETIMIBE 10 MG TAB PO SCH (09:00)
[2020-09-20] MEDS ORDERED: ASPIRIN 325 MG TAB PO SCH (09:00)
[2020-09-20 09:16] LABS: Basophils # (A) 0.04 X 10*3/uL (0.00-0.10); Basophils % (A) 0.5 %; Eosinophils # (A) 0.21 X 10*3/uL (0.04-0.35); Eosinophils % (A) 2.7 %; HCT 36.7 % (39.6-50.0); HGB 12.2 g/dL (13.0-17.0); Lymphocytes # (A) 2.94 X 10*3/uL (0.90-5.00); Lymphocytes % (A) 38.1 %; MCH 28.4 pg (27.0-32.0); MCHC 33.2 g/dL (32.0-37.0); MCV 85.5 fL (80.0-97.0); Mean Platelet Volume 10.7 fL (9.5-12.2); Monocytes # (A) 0.78 X 10*3/uL (0.20-1.00); Monocytes % (A) 10.1 %; Neutrophils # (A) 3.73 X 10*3/uL (1.80-7.70); Neutrophils % (A) 48.3 %; Platelet Count 280 X 10*3/uL (140-440); RBC 4.29 X 10*6/uL (4.40-5.60); RDW 13.6 % (11.5-14.5); WBC 7.72 X 10*3/uL (4.50-10.00)
[2020-09-20] MEDS: NITROGLYCERIN OINT 1 INCH/GM PACKET TOPICAL SCH (11:46)
[2020-09-20 11:51] VITALS: BP 121/72; PULSE 97
[2020-09-20] MEDS: HEPARIN SODIUM,PORCINE/PF 5,000 UNIT/0.5 ML SYRINGE SQ SCH (11:59)
[2020-09-20] MEDS: LOSARTAN 50 MG TAB PO SCH (12:00)
[2020-09-20] MEDS: METOPROLOL SUCCINATE (ER) 50 MG TAB.ER.24H PO SCH (12:01)
[2020-09-20] MEDS: TOPIRAMATE 25 MG TAB PO SCH (12:01)
[2020-09-20] MEDS ORDERED: POTASSIUM CHLORIDE ER 20 MEQ TAB.ER PO STA (12:03)
--- NOTE | 2020-09-20 13:28 | P.STRESS ---
- Stress Test Note Stress Test Results/Findings: Exam Performed: stress echo exercise with con Exam Date: 09/20/20 Reason for Exam: CP Height: 5 ft 7 in Weight: 131.54 kg Protocol: STRESS ECHO Stage: II Duration of Exercise: 5 Resting Heart Rate: 97 Resting Blood Pressure: 140/88 Maximum Achieved Heart Rate: 143 Maximum Achieved Blood Pressure: 182/76 85% PMHR: 140 100% PMHR: 165 METS: 6.8 Technologist Comment: Stress Test Results/Findings: Patient underwent exercise stress echo with a Dago protocol treadmill stress test. Patient exercised into Stage 2 for a total of 5 minutes reaching a total of 6.8 METS. Patient's maximum heart rate was 143 which represented 87 % age- predicted maximum heart rate. Patient did experience a 5 out of 10 chest pain with exercise. Stress EKG portion: At baseline patient's EKG showed normal sinus rhythm, normal axis, minimal 0.[address] depressions in the inferior and lateral leads. At peak exercise, EKG showed minimal accentuation of baseline EKG abnormalities. Stress echo portion: 2-D echocardiogram was performed in the parasternal long, personal short, apical 2 and apical four-chamber views at rest, peak exercise and in recovery. At baseline, echocardiogram showed left ventricular ejection fraction 55% without wall motion abnormalities. With peak exercise, echocardiogram shows improvement in left ventricular ejection fraction, increase contractility, decrease in left ventricular dimension without wall motion abnormalities consistent with a normal response to exercise. Conclusions: 1. Normal echo response to exercise without evidence of inducible ischemia. 2. Baseline abnormal EKG with nonspecific response. 3. Fair exercise capacity. 4. 5 out of 10 chest pain noted with exercise which in and of itself is considered an abnormal stress test. Clinical correlation recommended.
--- NOTE | 2020-09-20 13:39 | P.DS ---
Providers Date of admission: 09/19/20 16:10 Expected date of discharge: 09/20/20 Attending physician: Yahir Marin Consults: 09/19/20 16:05 Consult Physician Urgent Consulting Provider: [facility] Consult Reason/Comments: Unstable angina Do you want consulting provider notified?: Yes Primary care physician: Yahir Marin Plan - Discharge Summary New Discharge Prescriptions: Continue Metoprolol Succinate (ER) [Toprol XL] 50 mg PO BID Topiramate [Topamax] 25 mg PO BID tiZANidine [Zanaflex] 4 mg PO HS PRN PRN Reason: Muscle Spasm amLODIPine [Norvasc] 10 mg PO DAILY Atorvastatin [Lipitor] 40 mg PO HS Albuterol Sulfate [Albuterol Sulfate Hfa] 2 puff PO RT-Q6H PRN PRN Reason: Shortness Of Breath Acetaminophen [Tylenol Extra Strength] 500 mg PO Q8H PRN PRN Reason: Pain Furosemide [Lasix] 40 mg PO BID #60 tablet Pantoprazole [Protonix] 40 mg PO AC-BRKFST 30 Days #30 tablet. Losartan Potassium 50 mg PO BID Ezetimibe [Zetia] 10 mg PO DAILY Discontinued Hydrochlorothiazide [hydroCHLOROthiazide] 12.5 mg PO DAILY Discharge Medication List Metoprolol Succinate (ER) [Toprol XL] 50 mg PO BID 04/15/18 [History] Atorvastatin [Lipitor] 40 mg PO HS 10/13/19 [History] Topiramate [Topamax] 25 mg PO BID 10/13/19 [History] amLODIPine [Norvasc] 10 mg PO DAILY 10/13/19 [History] tiZANidine [Zanaflex] 4 mg PO HS PRN 10/13/19 [History] Acetaminophen [Tylenol Extra Strength] 500 mg PO Q8H PRN 02/14/20 [History] Albuterol Sulfate [Albuterol Sulfate Hfa] 2 puff PO RT-Q6H PRN 02/14/20 [History] Furosemide [Lasix] 40 mg PO BID #60 tablet 02/17/20 [Rx] Pantoprazole [Protonix] 40 mg PO AC-BRKFST 30 Days #30 tablet. 02/17/20 [Rx] Ezetimibe [Zetia] 10 mg PO DAILY 09/19/20 [History] Losartan Potassium 50 mg PO BID 09/19/20 [History] Follow up Appointment(s)/Referral(s): Yahir Marin MD [Primary Care Provider] - 1 Week Rajinder Meneses MD [STAFF PHYSICIAN] - 3 Weeks Discharge Disposition: HOME SELF-CARE
[2020-09-20 13:54] LABS: African American GFR (CKD) 87.1 (60.0-200.0); Albumin 4.2 g/dL (3.80-4.90); Albumin/Globulin Ratio 1.83 (1.60-3.17); Anion Gap 12.1 mmol/L (4.00-12.00); BUN/Creat Ratio 13.64 Ratio (12.00-20.00); Calcium 8.6 mg/dL (8.7-10.3); Carbon Dioxide 28.9 mmol/L (21.6-31.8); Chol/HDL Ratio 5.65; Globulin 2.3 g/dL (1.6-3.3); LDL Cholesterol,Calculated 92.8 mg/dL (0.0-131.0); Non-African American GFR(CKD) 75.2 (60.0-200.0); Potassium 2.9 mmol/L (3.5-5.5); Total Bilirubin 0.6 mg/dL (0.2-1.2); Total Protein 6.5 g/dL (6.2-8.2); VLDL Calculation 51.2 mg/dL (5.00-40.00)
== END 2020-09-20 14:59 | disposition home or self-care (01) ==
LOC: EC 13:36 → 6NMEDSUR 16:10
PROVIDERS: ADMIT Internal Medicine; ATTEND Internal Medicine
DX: R07.89 Other chest pain (principal); E66.9 Obesity, unspecified; I10 Essential (primary) hypertension; E78.5 Hyperlipidemia, unspecified; I87.2 Venous insufficiency (chronic) (peripheral); Z20.822 Contact with and (suspected) exposure to COVID-19; R00.0 Tachycardia, unspecified; E78.00 Pure hypercholesterolemia, unspecified; R06.02 Shortness of breath; R42 Dizziness and giddiness; I71.2 Thoracic aortic aneurysm, without rupture; K21.9 Gastro-esophageal reflux disease without esophagitis; M19.90 Unspecified osteoarthritis, unspecified site; K43.0 Incisional hernia with obstruction, without gangrene; J44.9 Chronic obstructive pulmonary disease, unspecified; Z79.82 Long term (current) use of aspirin; Z79.899 Other long term (current) drug therapy; Z88.5 Allergy status to narcotic agent; Z88.8 Allergy status to other drugs, medicaments and biological substances; Z87.442 Personal history of urinary calculi; Z87.891 Personal history of nicotine dependence; Z90.49 Acquired absence of other specified parts of digestive tract; Z86.73 Personal history of transient ischemic attack (TIA), and cerebral infarction without residual deficits; Z83.3 Family history of diabetes mellitus; Z82.49 Family history of ischemic heart disease and other diseases of the circulatory system
CPT/HCPCS: 99285; 93005 ×2; 36415; 94760; 85379; 80061; 80053 ×2; 83735; 84484; 85025 ×2; 85610; 85730; 87635; 71046; G0378 ×2; C8930; Q9950; 93351

== ENCOUNTER → 2020-09-29 | Outpatient (CLI) | payer OTHER ==
[2020-09-29 21:01] LABS: African American GFR (CKD) 78.4 (60.0-200.0); Anion Gap 10.9 mmol/L (4.00-12.00); BUN/Creat Ratio 12.5 Ratio (12.00-20.00); Calcium 9.3 mg/dL (8.7-10.3); Carbon Dioxide 29.1 mmol/L (21.6-31.8); Non-African American GFR(CKD) 67.7 (60.0-200.0); Potassium 3.4 mmol/L (3.5-5.5)
== END | disposition home or self-care (01) ==
LOC: LABWHC1 13:30
PROVIDERS: ATTEND Nurse Practitioner Adult Health
DX: I10 Essential (primary) hypertension (principal)
CPT/HCPCS: 36415; 80048

== ENCOUNTER → 2021-02-19 | Outpatient (CLI) | payer OTHER ==
[2021-02-19 19:17] LABS: ALT 21 U/L (10-49); AST 21 U/L (14-35); Chol/HDL Ratio 4.69 Ratio; LDL Cholesterol,Calculated 96.6 mg/dL (0.0-131.0)
== END | disposition home or self-care (01) ==
LOC: LABWHC1 09:07
PROVIDERS: ATTEND Internal Medicine Interventional Cardiology
DX: E78.2 Mixed hyperlipidemia (principal)
CPT/HCPCS: 36415; 80061; 84450; 84460

== ENCOUNTER → 2021-03-07 | Outpatient (CLI) | payer OTHER ==
--- NOTE | 2021-03-07 15:24 | FL ---
Barium swallow HISTORY: R 13.14 Patient was given high density barium to drink. Swallowing mechanism is normal, there is no obstruction to flow. No extrinsic or intrinsic esophageal lesion. There is no evident aspiration. No hiatal hernia was identified. Tertiary esophageal contrac tions were witnessed during the exam. No evident gastroesophageal reflux. 1 minute 30 seconds fluoroscopy time, 213 intraoperative images document the procedure. IMPRESSION: Tertiary esophageal contractions.
== END | disposition home or self-care (01) ==
LOC: RADUSWWP 10:57
PROVIDERS: ATTEND Internal Medicine
DX: K31.89 Other diseases of stomach and duodenum (principal)
CPT/HCPCS: 74220

== ENCOUNTER → 2023-11-24 | Outpatient (CLI) | payer MEDICARE, OTHER ==
[2023-11-24 16:29] LABS: ALT 16 U/L (10-49); AST 19 U/L (14-35); Albumin 4.1 g/dL (3.8-4.9); Albumin/Globulin Ratio 1.86 Ratio (1.60-3.17); Alkaline Phosphatase 84 U/L (41-126); Calcium 9.2 mg/dL (8.7-10.3); Carbon Dioxide 27.9 mmol/L (21.6-31.8); Chloride 105 mmol/L (96-109); Chol/HDL Ratio 4.21 Ratio; Globulin 2.2 g/dL (1.6-3.3); Glucose 129 mg/dL (70-110); LDL Cholesterol,Calculated 84.8 mg/dL (0.0-131.0); Potassium 4.2 mmol/L (3.5-5.5); Sodium 143 mmol/L (135-145); Total Bilirubin 0.4 mg/dL (0.3-1.2); Total Protein 6.3 g/dL (6.2-8.2)
== END | disposition home or self-care (01) ==
LOC: LABWHC1 10:30
PROVIDERS: ATTEND Nurse Practitioner Adult Health
DX: I10 Essential (primary) hypertension (principal); E78.2 Mixed hyperlipidemia
CPT/HCPCS: 36415; 80053; 80061

== ENCOUNTER → 2024-04-28 | Outpatient (CLI) | payer MEDICARE, OTHER ==
--- NOTE | 2024-04-28 15:17 | CT ---
EXAMINATION TYPE: CT abdomen pelvis wo con DATE OF EXAM: 04/28/2024 COMPARISON: CTA chest abdomen and pelvis dated 02/14/2020 CLINICAL INDICATION: Male, 58 years old with history of N20.0 CALCULUS OF KIDNEY; [facility], CALCULUS OF KI DNEY TECHNIQUE: CT scan of the abdomen and pelvis is performed without oral or IV contrast. CT DLP: 2645.[address] CTDI: mGy Automated exposure control for dose reduction was used. FINDINGS: Within the limitations of a non-contrast study, the following observations are made. There is a 6 mm juxtapleural nodule on the right. Previously measured 4.5 mm. If this is a high risk patient, then CT thorax is recommended for further evaluation. There is surgical absence of the gallbladder. There is no biliary ductal dilatation. There is no organomegaly of the liver, pancreas, spleen or adrenal glands. There are no renal calcifications or hydronephrosis. The caliber of the abdominal aorta is normal and there is no retroperitoneal adenopathy or hemorrhage . The bowel loops are normal in caliber is no evidence of obstruction. No inflammatory changes are iden tified in the mesentery and there is no free intraperitoneal air or fluid. There is no pelvic mass, free fluid, abscess or adenopathy. The osseous structures and soft tissues are unremarkable. IMPRESSION: 1. No renal calcification or hydronephrosis. 2. 6 mm juxtapleural nodule on the right. It was 4.5 mm on 02/14/2020. If this is a high risk patient , then CT thorax is recommended for further evaluation. [facility], , 04/28/2024 3:15 PM
== END | disposition home or self-care (01) ==
LOC: RADCTMAIN 13:03
PROVIDERS: ATTEND Internal Medicine
DX: N20.0 Calculus of kidney (principal); Z90.49 Acquired absence of other specified parts of digestive tract
CPT/HCPCS: 74176

== ENCOUNTER → 2024-06-23 | Outpatient (CLI) | payer MEDICARE, OTHER ==
[2024-06-23 16:49] LABS: African American GFR (CKD) >90 (>60 ml/min/1.73 sqM); Blood Urea Nitrogen 9 mg/dL (9-20); Non-African American GFR(CKD) 82 (>60 ml/min/1.73 sqM)
--- NOTE | 2024-06-23 19:13 | CT ---
EXAMINATION TYPE: CT chest w con DATE OF EXAM: 06/23/2024 COMPARISON: CT abdomen and pelvis April 28, 2024 CLINICAL INDICATION: Male, 59 years old with history of R91.1 SOLITARY PULMONARY NODULE, Further eval uation of right sided pulmonary nodule seen on previous abd/pel CT. TECHNIQUE: CT scan of the thorax is performed following with IV Contrast, patient injected with 100m l mL of Isovue 300. CT DLP: 781 mGycm. Automated Exposure Control for Dose Reduction was Utilized. FINDINGS: LUNGS: Grossly stable 4 to 5 mm right middle lobe nodule axial image 27 from 2019 study. Mild underl emily emphysematous change in the upper lungs is present. There is no pleural effusion or pneumothorax seen. The tracheobronchial tree is patent. HEART: Size within normal limits. No significant coronary artery calcifications. MEDIASTINUM: There are no greater than 1 cm hilar or mediastinal lymph nodes. No pericardial effusi on is seen. OTHER: Bilateral subareolar gynecomastia is redemonstrated. IMPRESSION: Stable 5 mm right middle lobe pulmonary nodule. No additional new or enlarging nodules id entified. [facility], , 06/23/2024 7:11 PM
== END | disposition home or self-care (01) ==
LOC: RADCTMAIN 15:57
PROVIDERS: ATTEND Internal Medicine
DX: R91.1 Solitary pulmonary nodule (principal); J43.9 Emphysema, unspecified
CPT/HCPCS: 82565; 84520; 71260; 36415; Q9967